=== PATIENT | male | born 1970 | race Caucasian/White ===

== ENCOUNTER 2016-10-31 14:12 | Emergency (ER) | payer OTHER ==
[~2016-10-31] VITALS: Ht 175.3 cm; Wt 118.0 kg
[~2016-10-31 14:12] MED LIST: ASPI81TA2 PO; ATOR10TA84 PO; CARV3.1262 PO; DOCU-275 PO; FLUT16H NASAL; LISI10TA PO; LORA10TA7 PO; LORA1TAB3 PO; NITR0.4T BU; NULEV PO; RANI150T7 PO; SIME80 PO
[2016-10-31] MEDS ORDERED: PROPARACAINE HCL 0.5% 15 ML OPHTHALMIC SOLUTION OS ONE (17:00)
[2016-10-31] MEDS ORDERED: HYDROCODONE/ACETAMINOPHEN 5-325 MG TABLET PO ONE (17:30)
[2016-10-31] MEDS ORDERED: ONDANSETRON HCL 4 MG/2 ML VIAL IM ONE (18:30)
[2016-10-31 19:10] VITALS: BP 140/94
== END 2016-10-31 19:35 | disposition home or self-care (01) ==
LOC: EMS 14:22
DX: H11.32 Conjunctival hemorrhage, left eye (principal); I25.10 Atherosclerotic heart disease of native coronary artery without angina pectoris; I10 Essential (primary) hypertension; E78.00 Pure hypercholesterolemia, unspecified; K21.9 Gastro-esophageal reflux disease without esophagitis; S09.90XA Unspecified injury of head, initial encounter; W20.8XXA Other cause of strike by thrown, projected or falling object, initial encounter; Y93.89 Activity, other specified; Y92.89 Other specified places as the place of occurrence of the external cause; Y99.8 Other external cause status
CPT/HCPCS: 70450; 96372; 99284; J2405

== ENCOUNTER 2019-09-04 11:34 | Emergency (ER) | payer OTHER ==
[~2019-09-04] VITALS: Ht 177.8 cm; Wt 90.9 kg
[~2019-09-04 11:34] MED LIST changes: +ASPI-1198 PO; -ASPI81TA2 PO; -ATOR10TA84 PO; +ATOR20TA86 PO; +CARV12 PO; -CARV3.1262 PO; -DOCU-275 PO; +GEMF600T5 PO; +GLIP5 PO; +HYOS-14 PO; +LISI-662 PO; -LISI10TA PO; +LORA-1000 PO; -LORA1TAB3 PO; +METF-960 PO; -NULEV PO; +PIOG30TA10 PO; -RANI150T7 PO
[2019-09-04 11:51] VITALS: BP 133/97
== END 2019-09-04 12:29 | disposition home or self-care (01) ==
LOC: EMS 11:35
DX: G51.0 Bell's palsy (principal); E11.9 Type 2 diabetes mellitus without complications; E78.00 Pure hypercholesterolemia, unspecified; I10 Essential (primary) hypertension; I25.10 Atherosclerotic heart disease of native coronary artery without angina pectoris; K21.9 Gastro-esophageal reflux disease without esophagitis; Z79.899 Other long term (current) drug therapy; Z79.82 Long term (current) use of aspirin

== ENCOUNTER 2019-09-07 12:46 | Emergency (ER) | payer OTHER ==
[~2019-09-07] VITALS: Ht 172.7 cm; Wt 102.3 kg
[2019-09-07 14:30] LABS: BASOPHILS % (AUTO) 0.3 % (0.0-2.0); EOSINOPHILS % (AUTO) 0.2 % (1.0-6.0); HEMATOCRIT 38.6 % (41-53); LYMPHOCYTES # (AUTO) 1.2 K/uL (1.0-4.8); LYMPHOCYTES % (AUTO) 15.4 % (22.0-44.0); MEAN CORPUSCULAR HEMOGLOBIN 29.4 pg (26.0-34.0); MEAN CORPUSCULAR HGB CONC 33.8 G/dL (31.0-37.0); MEAN CORPUSCULAR VOLUME 87 fL (80-100); MONOCYTES # (AUTO) 0.2 K/uL (0.1-1.0); MONOCYTES % (AUTO) 2.6 % (2.0-9.0); NEUTROPHILS # (AUTO) 6.4 K/uL (1.8-7.7); NEUTROPHILS % (AUTO) 81.5 % (40.0-70.0); PLATELET COUNT (AUTO) 299 K/uL (150-450); RED BLOOD CELL COUNT(AUTO) 4.43 MIL/uL (4.50-5.90); RED CELL DISTRIBUTION WIDTH 13.6 % (11.5-14.5)
[2019-09-07 14:42] LABS: ANION GAP 7 mmol/L (8-16); CALCIUM, TOTAL 8.9 mg/dL (8.8-10.5); CARBON DIOXIDE 26 mmol/L (22-29); CHLORIDE 97 mmol/L (98-107); CREATININE 1.15 mg/dL (0.60-1.30); GLOMERULAR FILTR. RATE CALC > 60 mL/min (>60); GLUCOSE,RANDOM 312 mg/dL (70-110); POTASSIUM 4.6 mmol/L (3.5-5.1); SODIUM SERUM 130 mmol/L (136-145); UREA NITROGEN, BLOOD 27 mg/dL (7-18)
[2019-09-07 14:48] LABS: PROTHROMBIN TIME 10.3 SEC (9.4-11.6)
[2019-09-07 14:56] LABS: ALANINE AMINOTRANSFERASE 30 U/L (12-78); ALBUMIN 4.3 g/dL (3.4-5.0); ALKALINE PHOSPHATASE 84 U/L (46-116); ASPARTATE AMINOTRANSFERASE 9 U/L (15-37); BILIRUBIN,TOTAL 0.3 mg/dL (0.1-1.0); TOTAL PROTEIN, SERUM 8.2 g/dL (6.4-8.2)
[2019-09-07] MEDS ORDERED: SODIUM CHLORIDE 0.9% 1,000 ML IV ONE (15:00)
[2019-09-07] MEDS ORDERED: IOVERSOL 350 MG/ML 100 ML VIAL ONE (15:13)
[2019-09-07] MEDS ORDERED: MINERAL OIL/PETROLATUM,WHITE PF 3.5 GM OPHTHALMIC OINTMENT OS ONE (16:15)
[2019-09-07 16:38] LABS: GLUCOSE,POINT OF CARE 242 MG/DL (70-110)
[2019-09-07 16:57] VITALS: BP 125/76
== END 2019-09-07 17:03 | disposition home or self-care (01) ==
LOC: EMS 12:49
DX: G51.0 Bell's palsy (principal); E11.65 Type 2 diabetes mellitus with hyperglycemia; H02.402 Unspecified ptosis of left eyelid; I25.10 Atherosclerotic heart disease of native coronary artery without angina pectoris; K21.9 Gastro-esophageal reflux disease without esophagitis; E78.00 Pure hypercholesterolemia, unspecified; I10 Essential (primary) hypertension; Z79.82 Long term (current) use of aspirin; Z79.84 Long term (current) use of oral hypoglycemic drugs; Z79.899 Other long term (current) drug therapy
CPT/HCPCS: 36415; 70450; 70491; 80053; 82962; 85025; 85610; 85730; 99284; J7030; Q9967; 82948

== ENCOUNTER 2020-09-27 14:07 | Inpatient (IN) | payer OTHER ==
[~2020-09-27] VITALS: Ht 167.6 cm; Wt 89.3 kg
[~2020-09-27 14:07] MED LIST changes: -GEMF600T5 PO; +GEMF600T90 PO; -LISI-662 PO; +LISI-894 PO; -SIME80 PO; +SIME80TA14 PO
[2020-09-27] MEDS ORDERED: AZITHROMYCIN 500 MG/NS 250 ML IV ONE (14:15)
[2020-09-27] MEDS ORDERED: DEXAMETHASONE SOD PHOS 4 MG/ML 5 ML VIAL IVP ONE (14:15)
[2020-09-27] MEDS ORDERED: ACETAMINOPHEN 500 MG TABLET PO ONE (14:15)
[2020-09-27] MEDS ORDERED: CefTRIAXone 1 GM/DEXTROSE 50 ML IV ONE (14:15)
[2020-09-27] MEDS ORDERED: IBUPROFEN 600 MG TABLET PO ONE (14:30)
[2020-09-27] MEDS ORDERED: MORPHINE SULFATE 2 MG/ML SYRINGE IVP ONE (14:45)
[2020-09-27] MEDS ORDERED: ONDANSETRON HCL 4 MG/2 ML VIAL IVP ONE (14:45)
[2020-09-27 14:59] LABS: ABG A-A DIFF O2 60.5 mmHg (10-20.0); ABG BASE EXCESS 4.4 mmol/L (-2.0-3.0); ABG CARBOXYHEMOGLOBIN 0.5 % (0.0-1.5); ABG HCO3 28.3 mmol/L (22.0-26.0); ABG METHEMOGLOBIN 0.3 % (0.0-1.5); ABG OXYGEN CONTENT 15.9 mL/dL (15.0-23.0); ABG OXYGEN SATURATION 86.4 % (95.0-98.0); ABG OXYHEMOGLOBIN 85.7 % (94.0-100.0); ABG PCO2 35 mmHg (35-45); ABG PH 7.512 (7.35-7.450); ABG TOTAL HEMOGLOBIN 13.2 G/dL (12.0-18.0); PO2, ARTERIAL BG 47.3 mmHg (84.0-92.0); SOURCE, BLOOD GAS ARTERIAL; TEMPERATURE, FAHRENHEIT, BG 98.6 FAHREN (96.0-98.6)
[2020-09-27 15:04] LABS: BASOPHILS % (AUTO) 0.1 % (0.0-2.0); EOSINOPHILS % (AUTO) 0.1 % (1.0-6.0); HEMOGLOBIN 12.8 g/dL (13.5-17.5); LYMPHOCYTES # (AUTO) 0.8 K/uL (1.0-4.8); LYMPHOCYTES % (AUTO) 12.1 % (22.0-44.0); MEAN CORPUSCULAR HEMOGLOBIN 28.9 pg (26.0-34.0); MEAN CORPUSCULAR HGB CONC 32.9 G/dL (31.0-37.0); MEAN CORPUSCULAR VOLUME 88 fL (80-100); MONOCYTES # (AUTO) 0.5 K/uL (0.1-1.0); MONOCYTES % (AUTO) 7.2 % (2.0-9.0); NEUTROPHILS # (AUTO) 5.3 K/uL (1.8-7.7); NEUTROPHILS % (AUTO) 80.5 % (40.0-70.0); PLATELET COUNT (AUTO) 152 K/uL (150-450); RED BLOOD CELL COUNT(AUTO) 4.43 MIL/uL (4.50-5.90); RED CELL DISTRIBUTION WIDTH 14.2 % (11.5-14.5)
[2020-09-27 15:10] LABS: ANION GAP 6 mmol/L (8-16); CALCIUM, TOTAL 8.8 mg/dL (8.8-10.5); CARBON DIOXIDE 30 mmol/L (22-29); CHLORIDE 96 mmol/L (98-107); GLOMERULAR FILTR. RATE CALC > 60 mL/min (>60); GLUCOSE,RANDOM 136 mg/dL (70-110); POTASSIUM 3.8 mmol/L (3.5-5.1); SODIUM SERUM 132 mmol/L (136-145); UREA NITROGEN, BLOOD 21 mg/dL (7-18)
[2020-09-27 15:14] LABS: D-DIMER 2.17 mg/L FEU (0.00-0.50); PROTHROMBIN TIME 10.4 SEC (9.4-11.6)
[2020-09-27 15:18] LABS: SITE, BLOOD GAS RT RADIAL
[2020-09-27 15:21] LABS: LACTIC ACID 1.1 mmol/L (0.4-2.0)
[2020-09-27 15:29] LABS: ALANINE AMINOTRANSFERASE 20 U/L (12-78); ALBUMIN 3.4 g/dL (3.4-5.0); ALKALINE PHOSPHATASE 71 U/L (46-116); ASPARTATE AMINOTRANSFERASE 21 U/L (15-37); BILIRUBIN,TOTAL 0.4 mg/dL (0.1-1.0); CREATINE KINASE, TOTAL ONLY 49 U/L (39-308); FERRITIN 388 ng/mL (26-388); LACTATE DEHYDROGENASE 299 U/L (85-227); LIPASE 124 U/L (73-393); TOTAL PROTEIN, SERUM 8.1 g/dL (6.4-8.2)
[2020-09-27 15:35] LABS: B-TYPE NATRIURETIC PEPTIDE 8 pg/mL (0-100)
[2020-09-27 15:41] LABS: C-REACTIVE PROTEIN QUANT 27.23 mg/dL (0.00-0.30)
[2020-09-27] MEDS ORDERED: ACETAMINOPHEN 325 MG TABLET PO PRN (16:00)
[2020-09-27] MEDS ORDERED: ONDANSETRON HCL 4 MG/2 ML VIAL IVP PRN ×2 (16:00→20:00)
[2020-09-27] MEDS ORDERED: 0.9% SODIUM CHLORIDE 10 ML SYRINGE IVP PRN (16:00)
[2020-09-27 16:34] LABS: COVID AG,FIA SOURCE NASOPHARYNGEAL
[2020-09-27 17:04] LABS: INFLUENZA TYPE A NEGATIVE FOR TYPE A (NEGATIVE); INFLUENZA TYPE B NEGATIVE FOR TYPE B (NEGATIVE)
[2020-09-27] MEDS ORDERED: REMDESIVIR 200 MG in SODIUM CHLORIDE 0.9% 250 ML IV ONE (18:00)
[2020-09-27] MEDS ORDERED: SODIUM CHLORIDE 0.9% 250 ML IV ONE (18:13)
[2020-09-27 18:25] VITALS: BP 114/53
[2020-09-27] MEDS ORDERED: OXYGEN THERAPY IH SCH (20:00)
[2020-09-27] MEDS ORDERED: HYDROCODONE/ACETAMINOPHEN 5-325 MG TABLET PO PRN (20:00)
[2020-09-27] MEDS ORDERED: BISACODYL 10 MG RECTAL RECTAL SUPPOSITORY PR PRN (20:00)
[2020-09-27] MEDS ORDERED: MAGNESIUM HYDROXIDE SUSPENSION 30 ML UDCUP PO PRN (20:00)
[2020-09-27] MEDS ORDERED: DEXTROSE 50%-WATER 25 GM/50 ML SYRINGE IVP PRN (20:00)
[2020-09-27] MEDS ORDERED: MORPHINE SULFATE 2 MG/ML SYRINGE IVP PRN (20:00)
[2020-09-27 20:21] VITALS: BP 105/57
[2020-09-27] MEDS: DOCUSATE SODIUM 100 MG CAPSULE PO SCH (21:52)
[2020-09-28] VITALS (7 sets, daily range): BP systolic 101–125; BP diastolic 50–76
[2020-09-28] MEDS: HEPARIN SODIUM,PORCINE 5,000 UNITS/ML VIAL SQ SCH ×3 (00:45→15:38)
[2020-09-28] MEDS: ACETAMINOPHEN 325 MG TABLET PO PRN ×2 (06:13→18:07)
[2020-09-28 06:33] LABS: BASOPHILS % (AUTO) 0.1 % (0.0-2.0); EOSINOPHILS % (AUTO) 0 % (1.0-6.0); HEMATOCRIT 34.7 % (41-53); LYMPHOCYTES # (AUTO) 0.4 K/uL (1.0-4.8); LYMPHOCYTES % (AUTO) 7.3 % (22.0-44.0); MEAN CORPUSCULAR HEMOGLOBIN 29.9 pg (26.0-34.0); MEAN CORPUSCULAR HGB CONC 34.4 G/dL (31.0-37.0); MEAN CORPUSCULAR VOLUME 87 fL (80-100); MONOCYTES # (AUTO) 0.5 K/uL (0.1-1.0); MONOCYTES % (AUTO) 8.1 % (2.0-9.0); NEUTROPHILS # (AUTO) 5.2 K/uL (1.8-7.7); NEUTROPHILS % (AUTO) 84.5 % (40.0-70.0); PLATELET COUNT (AUTO) 168 K/uL (150-450)
[2020-09-28 07:23] LABS: ALANINE AMINOTRANSFERASE 21 U/L (12-78); ALBUMIN 2.8 g/dL (3.4-5.0); ALKALINE PHOSPHATASE 61 U/L (46-116); ANION GAP 7 mmol/L (8-16); ASPARTATE AMINOTRANSFERASE 24 U/L (15-37); BILIRUBIN,TOTAL 0.2 mg/dL (0.1-1.0); CALCIUM, TOTAL 8.4 mg/dL (8.8-10.5); CARBON DIOXIDE 27 mmol/L (22-29); CHLORIDE 97 mmol/L (98-107); CREATININE 1.21 mg/dL (0.60-1.30); GLOMERULAR FILTR. RATE CALC > 60 mL/min (>60); GLUCOSE,RANDOM 232 mg/dL (70-110); POTASSIUM 4.4 mmol/L (3.5-5.1); SODIUM SERUM 131 mmol/L (136-145); TOTAL PROTEIN, SERUM 7.5 g/dL (6.4-8.2); UREA NITROGEN, BLOOD 24 mg/dL (7-18)
[2020-09-28] MEDS: DEXAMETHASONE SOD PHOS 4 MG/ML VIAL IVP SCH (07:59)
[2020-09-28] MEDS: CHOLECALCIFEROL (VIT D3) 1,000 UNITS [25 MCG] TABLET PO SCH (08:00)
[2020-09-28] MEDS: ZINC SULFATE 220 MG CAPSULE PO SCH ×2 (08:00→20:42)
[2020-09-28] MEDS: ASCORBIC ACID 500 MG TABLET PO SCH ×2 (08:00→20:42)
[2020-09-28] MEDS: DOCUSATE SODIUM 100 MG CAPSULE PO SCH ×2 (08:00→20:42)
[2020-09-28 08:17] LABS: C-REACTIVE PROTEIN QUANT 26.58 mg/dL (0.00-0.30)
[2020-09-28 08:38] LABS: FERRITIN 421 ng/mL (26-388)
[2020-09-28] MEDS ORDERED: FAMOTIDINE 20 MG TABLET PO SCH (09:00)
[2020-09-28] MEDS ORDERED: ASPI-1450 PO (10:59)
[2020-09-28 12:11] LABS: GLUCOMETER DEV NAME(LOC) 5S.2B; GLUCOSE,POINT OF CARE 229 MG/DL (70-110)
[2020-09-28] MEDS ORDERED: HYOSCYAMINE SULFATE 0.125 MG DTAB PO SCH (13:00)
[2020-09-28] MEDS ORDERED: NITROGLYCERIN 0.4 MG SUBLINGUAL TABLET #25 SL PRN (13:00)
[2020-09-28] MEDS ORDERED: DEXTROSE 50%-WATER 25 GM/50 ML SYRINGE IVP PRN (13:00)
[2020-09-28] MEDS: ASPIRIN 81 MG CHEWABLE TABLET PO SCH (15:38)
[2020-09-28] MEDS: HYOSCYAMINE SULFATE 0.125 MG TAB PO SCH ×3 (15:38→20:41)
[2020-09-28] MEDS: CARVEDILOL 12.5 MG TABLET PO SCH ×2 (15:39→20:42)
[2020-09-28] MEDS: LORazepam 1 MG TABLET PO SCH ×2 (15:39→18:25)
[2020-09-28] MEDS: FLUTICASONE PROPIONATE 50 MCG/SPRAY 16 GM NASAL SPRAY NASAL SCH (15:41)
[2020-09-28] MEDS: GlipiZIDE 5 MG TABLET PO SCH (18:07)
[2020-09-28] MEDS: GEMFIBROZIL 600 MG TABLET PO SCH (18:07)
[2020-09-28] MEDS: REMDESIVIR 100 MG in SODIUM CHLORIDE 0.9% 250 ML IV SCH (18:09)
[2020-09-28] MEDS: INSULIN LISPRO 100 UNITS/ML SQ PRN ×2 (18:38→20:44)
[2020-09-28] MEDS: ATORVASTATIN CALCIUM 20 MG TABLET PO SCH (20:42)
[2020-09-28] MEDS: FAMOTIDINE 20 MG TABLET PO SCH (20:47)
[2020-09-28] MEDS: FLUCONAZOLE 200 MG/NACL ISOOSM 100 ML IV SCH (22:30)
[2020-09-28] MEDS: MAALOX/LIDOCAINE/NYSTATIN SUSP 5 ML ORAL.SYG MM SCH (22:30)
[2020-09-28] MEDS ORDERED: SODIUM CHLORIDE 0.9% 1,000 ML ONE (22:46)
[2020-09-28 23:18] LABS: GLUCOMETER DEV NAME(LOC) 5S.2B; GLUCOSE,POINT OF CARE 314 MG/DL (70-110)
[2020-09-29] VITALS (13 sets, daily range): BP systolic 96–119; BP diastolic 45–76
[2020-09-29] MEDS: LORazepam 1 MG TABLET PO SCH ×4 (01:00→19:50)
[2020-09-29 05:06] LABS: GLUCOMETER DEV NAME(LOC) 5N.3; GLUCOSE,POINT OF CARE 243 MG/DL (70-110)
[2020-09-29 05:06] LABS: GLUCOMETER DEV NAME(LOC) 5N.3; GLUCOSE,POINT OF CARE 288 MG/DL (70-110)
[2020-09-29] MEDS: GlipiZIDE 5 MG TABLET PO SCH ×2 (05:41→16:45)
[2020-09-29] MEDS: GEMFIBROZIL 600 MG TABLET PO SCH ×2 (05:41→16:45)
[2020-09-29] MEDS: ACETAMINOPHEN 325 MG TABLET PO PRN (05:42)
[2020-09-29] MEDS: INSULIN LISPRO 100 UNITS/ML SQ PRN ×4 (05:50→22:20)
[2020-09-29 06:45] LABS: BASOPHILS % (AUTO) 0.1 % (0.0-2.0); EOSINOPHILS % (AUTO) 0 % (1.0-6.0); HEMATOCRIT 32.5 % (41-53); HEMOGLOBIN 11.3 g/dL (13.5-17.5); LYMPHOCYTES # (AUTO) 0.8 K/uL (1.0-4.8); MEAN CORPUSCULAR HEMOGLOBIN 29.8 pg (26.0-34.0); MEAN CORPUSCULAR HGB CONC 34.6 G/dL (31.0-37.0); MEAN CORPUSCULAR VOLUME 86 fL (80-100); MONOCYTES # (AUTO) 0.8 K/uL (0.1-1.0); MONOCYTES % (AUTO) 9.4 % (2.0-9.0); NEUTROPHILS # (AUTO) 6.6 K/uL (1.8-7.7); NEUTROPHILS % (AUTO) 80.5 % (40.0-70.0); PLATELET COUNT (AUTO) 198 K/uL (150-450); RED BLOOD CELL COUNT(AUTO) 3.78 MIL/uL (4.50-5.90); RED CELL DISTRIBUTION WIDTH 13.9 % (11.5-14.5)
[2020-09-29 07:16] LABS: ALANINE AMINOTRANSFERASE 17 U/L (12-78); ALBUMIN 2.8 g/dL (3.4-5.0); ALKALINE PHOSPHATASE 55 U/L (46-116); ANION GAP 10 mmol/L (8-16); ASPARTATE AMINOTRANSFERASE 29 U/L (15-37); BILIRUBIN,TOTAL 0.2 mg/dL (0.1-1.0); C-REACTIVE PROTEIN QUANT 12.82 mg/dL (0.00-0.30); CALCIUM, TOTAL 8.3 mg/dL (8.8-10.5); CARBON DIOXIDE 27 mmol/L (22-29); CHLORIDE 97 mmol/L (98-107); CREATININE 1.04 mg/dL (0.60-1.30); FERRITIN 617 ng/mL (26-388); GLOMERULAR FILTR. RATE CALC > 60 mL/min (>60); GLUCOSE,RANDOM 189 mg/dL (70-110); POTASSIUM 4.2 mmol/L (3.5-5.1); SODIUM SERUM 134 mmol/L (136-145); TOTAL PROTEIN, SERUM 7.1 g/dL (6.4-8.2); UREA NITROGEN, BLOOD 27 mg/dL (7-18)
[2020-09-29] MEDS: HYOSCYAMINE SULFATE 0.125 MG TAB PO SCH ×4 (07:54→22:13)
[2020-09-29] MEDS: CARVEDILOL 12.5 MG TABLET PO SCH ×2 (07:54→22:13)
[2020-09-29] MEDS: FAMOTIDINE 20 MG TABLET PO SCH ×2 (07:54→22:13)
[2020-09-29] MEDS: CHOLECALCIFEROL (VIT D3) 1,000 UNITS [25 MCG] TABLET PO SCH (07:54)
[2020-09-29] MEDS: ZINC SULFATE 220 MG CAPSULE PO SCH ×2 (07:54→22:13)
[2020-09-29] MEDS: LORATADINE 10 MG TABLET PO SCH (07:54)
[2020-09-29] MEDS: ASPIRIN 81 MG CHEWABLE TABLET PO SCH (07:54)
[2020-09-29] MEDS: LISINOPRIL 20 MG TABLET PO SCH (07:55)
[2020-09-29] MEDS: ASCORBIC ACID 500 MG TABLET PO SCH ×2 (07:55→22:14)
[2020-09-29] MEDS: DOCUSATE SODIUM 100 MG CAPSULE PO SCH ×2 (07:55→22:14)
[2020-09-29] MEDS: HEPARIN SODIUM,PORCINE 5,000 UNITS/ML VIAL SQ SCH ×4 (07:55→23:47)
[2020-09-29] MEDS: MAALOX/LIDOCAINE/NYSTATIN SUSP 5 ML ORAL.SYG MM SCH ×4 (07:55→22:13)
[2020-09-29] MEDS: DEXAMETHASONE SOD PHOS 4 MG/ML VIAL IVP SCH (07:55)
[2020-09-29] MEDS: FLUTICASONE PROPIONATE 50 MCG/SPRAY 16 GM NASAL SPRAY NASAL SCH (07:56)
[2020-09-29] MEDS: PIOGLITAZONE HCL 30 MG TABLET PO SCH (08:08)
[2020-09-29] MEDS: PIPERACILLIN/TAZO 3.375 GM/D5W 50 ML IV SCH ×2 (13:48→19:50)
[2020-09-29] MEDS: ACYCLOVIR 200 MG CAPSULE PO SCH ×2 (16:45→22:13)
[2020-09-29] MEDS: REMDESIVIR 100 MG in SODIUM CHLORIDE 0.9% 250 ML IV SCH (17:15)
[2020-09-29 17:52] LABS: GLUCOMETER DEV NAME(LOC) 5S.2B; GLUCOSE,POINT OF CARE 158 MG/DL (70-110)
[2020-09-29 17:52] LABS: GLUCOMETER DEV NAME(LOC) 5S.2B; GLUCOSE,POINT OF CARE 145 MG/DL (70-110)
[2020-09-29 17:52] LABS: GLUCOMETER DEV NAME(LOC) 5S.2B; GLUCOSE,POINT OF CARE 293 MG/DL (70-110)
[2020-09-29] MEDS: FLUCONAZOLE 200 MG/NACL ISOOSM 100 ML IV SCH (22:13)
[2020-09-29] MEDS: ATORVASTATIN CALCIUM 20 MG TABLET PO SCH (22:13)
[2020-09-30] VITALS (10 sets, daily range): BP systolic 91–122; BP diastolic 50–72
[2020-09-30 00:26] LABS: GLUCOMETER DEV NAME(LOC) 5N.3; GLUCOSE,POINT OF CARE 227 MG/DL (70-110)
[2020-09-30] MEDS: LORazepam 1 MG TABLET PO SCH ×4 (00:38→18:31)
[2020-09-30] MEDS: PIPERACILLIN/TAZO 3.375 GM/D5W 50 ML IV SCH ×4 (00:38→18:32)
[2020-09-30] MEDS: GlipiZIDE 5 MG TABLET PO SCH ×2 (06:22→17:05)
[2020-09-30] MEDS: GEMFIBROZIL 600 MG TABLET PO SCH ×2 (06:23→17:05)
[2020-09-30 06:26] LABS: EOSINOPHILS % (AUTO) 0 % (1.0-6.0); HEMATOCRIT 35.4 % (41-53); LYMPHOCYTES # (AUTO) 0.8 K/uL (1.0-4.8); LYMPHOCYTES % (AUTO) 9.7 % (22.0-44.0); MEAN CORPUSCULAR HEMOGLOBIN 29.5 pg (26.0-34.0); MEAN CORPUSCULAR HGB CONC 33.9 G/dL (31.0-37.0); MEAN CORPUSCULAR VOLUME 87 fL (80-100); MONOCYTES % (AUTO) 11.3 % (2.0-9.0); NEUTROPHILS # (AUTO) 6.9 K/uL (1.8-7.7); PLATELET COUNT (AUTO) 230 K/uL (150-450); RED BLOOD CELL COUNT(AUTO) 4.07 MIL/uL (4.50-5.90)
[2020-09-30] MEDS: INSULIN LISPRO 100 UNITS/ML SQ PRN ×4 (06:36→21:53)
[2020-09-30 06:55] LABS: GLUCOMETER DEV NAME(LOC) 5S.2B; GLUCOSE,POINT OF CARE 150 MG/DL (70-110)
[2020-09-30 07:16] LABS: ALANINE AMINOTRANSFERASE 15 U/L (12-78); ALBUMIN 2.8 g/dL (3.4-5.0); ALKALINE PHOSPHATASE 58 U/L (46-116); ANION GAP 10 mmol/L (8-16); ASPARTATE AMINOTRANSFERASE 39 U/L (15-37); BILIRUBIN,TOTAL 0.5 mg/dL (0.1-1.0); CARBON DIOXIDE 26 mmol/L (22-29); CHLORIDE 98 mmol/L (98-107); CREATININE 1.11 mg/dL (0.60-1.30); GLOMERULAR FILTR. RATE CALC > 60 mL/min (>60); GLUCOSE,RANDOM 137 mg/dL (70-110); POTASSIUM 4.3 mmol/L (3.5-5.1); SODIUM SERUM 134 mmol/L (136-145); TOTAL PROTEIN, SERUM 7.3 g/dL (6.4-8.2); UREA NITROGEN, BLOOD 29 mg/dL (7-18)
[2020-09-30 07:51] LABS: C-REACTIVE PROTEIN QUANT 11.42 mg/dL (0.00-0.30); FERRITIN 713 ng/mL (26-388)
[2020-09-30] MEDS: HEPARIN SODIUM,PORCINE 5,000 UNITS/ML VIAL SQ SCH ×3 (08:43→23:09)
[2020-09-30] MEDS: DEXAMETHASONE SOD PHOS 4 MG/ML VIAL IVP SCH (08:43)
[2020-09-30] MEDS: MAALOX/LIDOCAINE/NYSTATIN SUSP 5 ML ORAL.SYG MM SCH ×4 (08:44→21:19)
[2020-09-30] MEDS: ASPIRIN 81 MG CHEWABLE TABLET PO SCH (08:44)
[2020-09-30] MEDS: CARVEDILOL 12.5 MG TABLET PO SCH ×3 (08:44→21:19)
[2020-09-30] MEDS: DOCUSATE SODIUM 100 MG CAPSULE PO SCH ×2 (08:44→21:20)
[2020-09-30] MEDS: FLUTICASONE PROPIONATE 50 MCG/SPRAY 16 GM NASAL SPRAY NASAL SCH (08:44)
[2020-09-30] MEDS: LORATADINE 10 MG TABLET PO SCH (08:44)
[2020-09-30] MEDS: PIOGLITAZONE HCL 30 MG TABLET PO SCH (08:44)
[2020-09-30] MEDS: HYOSCYAMINE SULFATE 0.125 MG TAB PO SCH ×4 (08:44→21:19)
[2020-09-30] MEDS: ASCORBIC ACID 500 MG TABLET PO SCH ×2 (08:45→21:19)
[2020-09-30] MEDS: ZINC SULFATE 220 MG CAPSULE PO SCH ×2 (08:45→21:19)
[2020-09-30] MEDS: LISINOPRIL 20 MG TABLET PO SCH (08:45)
[2020-09-30] MEDS: ACYCLOVIR 200 MG CAPSULE PO SCH ×3 (08:45→21:20)
[2020-09-30] MEDS: FAMOTIDINE 20 MG TABLET PO SCH ×2 (08:45→21:19)
[2020-09-30] MEDS: CHOLECALCIFEROL (VIT D3) 1,000 UNITS [25 MCG] TABLET PO SCH (08:45)
[2020-09-30] MEDS: ACETAMINOPHEN 325 MG TABLET PO PRN (12:12)
[2020-09-30] MEDS ORDERED: SODIUM CHLORIDE 0.9% 250 ML IV ONE (14:43)
[2020-09-30] MEDS: REMDESIVIR 100 MG in SODIUM CHLORIDE 0.9% 250 ML IV SCH (17:07)
[2020-09-30 18:49] LABS: GLUCOMETER DEV NAME(LOC) 5N.3; GLUCOSE,POINT OF CARE 283 MG/DL (70-110)
[2020-09-30 18:49] LABS: GLUCOMETER DEV NAME(LOC) 5N.3; GLUCOSE,POINT OF CARE 191 MG/DL (70-110)
[2020-09-30] MEDS: FLUCONAZOLE 200 MG/NACL ISOOSM 100 ML IV SCH (21:19)
[2020-09-30] MEDS: ATORVASTATIN CALCIUM 20 MG TABLET PO SCH (21:19)
[2020-09-30 22:33] LABS: GLUCOMETER DEV NAME(LOC) 5N.3; GLUCOSE,POINT OF CARE 251 MG/DL (70-110)
[2020-09-30] MEDS: ZOLPIDEM TARTRATE 5 MG TABLET PO PRN (23:23)
[2020-10-01 00:36] VITALS: BP 114/67
[2020-10-01] MEDS: LORazepam 1 MG TABLET PO SCH ×4 (00:42→21:00)
[2020-10-01] MEDS ORDERED: SODIUM CHLORIDE 0.9% 250 ML IV ONE (00:51)
[2020-10-01] MEDS: PIPERACILLIN/TAZO 3.375 GM/D5W 50 ML IV SCH ×4 (00:53→19:50)
[2020-10-01 04:42] VITALS: BP 110/60
[2020-10-01] MEDS: GEMFIBROZIL 600 MG TABLET PO SCH ×2 (06:08→17:07)
[2020-10-01] MEDS: GlipiZIDE 5 MG TABLET PO SCH ×2 (06:09→17:07)
[2020-10-01 06:26] LABS: EOSINOPHILS % (AUTO) 0 % (1.0-6.0); HEMATOCRIT 36.2 % (41-53); LYMPHOCYTES # (AUTO) 1.1 K/uL (1.0-4.8); LYMPHOCYTES % (AUTO) 9.7 % (22.0-44.0); MEAN CORPUSCULAR HGB CONC 33.2 G/dL (31.0-37.0); MEAN CORPUSCULAR VOLUME 87 fL (80-100); MONOCYTES % (AUTO) 8.7 % (2.0-9.0); NEUTROPHILS # (AUTO) 9.3 K/uL (1.8-7.7); NEUTROPHILS % (AUTO) 81.6 % (40.0-70.0); PLATELET COUNT (AUTO) 256 K/uL (150-450); RED BLOOD CELL COUNT(AUTO) 4.15 MIL/uL (4.50-5.90)
[2020-10-01 07:28] VITALS: BP 104/70
[2020-10-01 07:43] LABS: ALANINE AMINOTRANSFERASE 18 U/L (12-78); ALBUMIN 2.7 g/dL (3.4-5.0); ALKALINE PHOSPHATASE 67 U/L (46-116); ANION GAP 10 mmol/L (8-16); BILIRUBIN,TOTAL 0.4 mg/dL (0.1-1.0); C-REACTIVE PROTEIN QUANT 8.05 mg/dL (0.00-0.30); CALCIUM, TOTAL 8.4 mg/dL (8.8-10.5); CARBON DIOXIDE 27 mmol/L (22-29); CHLORIDE 98 mmol/L (98-107); GLOMERULAR FILTR. RATE CALC > 60 mL/min (>60); GLUCOSE,RANDOM 83 mg/dL (70-110); POTASSIUM 4.2 mmol/L (3.5-5.1); SODIUM SERUM 135 mmol/L (136-145); TOTAL PROTEIN, SERUM 7.2 g/dL (6.4-8.2); UREA NITROGEN, BLOOD 27 mg/dL (7-18)
[2020-10-01 08:26] LABS: ASPARTATE AMINOTRANSFERASE 32 U/L (15-37); FERRITIN 461 ng/mL (26-388)
[2020-10-01] MEDS: HEPARIN SODIUM,PORCINE 5,000 UNITS/ML VIAL SQ SCH (08:40)
[2020-10-01] MEDS: DEXAMETHASONE SOD PHOS 4 MG/ML VIAL IVP SCH (08:40)
[2020-10-01] MEDS: ACYCLOVIR 200 MG CAPSULE PO SCH ×3 (08:41→21:06)
[2020-10-01] MEDS: MAALOX/LIDOCAINE/NYSTATIN SUSP 5 ML ORAL.SYG MM SCH ×4 (08:41→21:07)
[2020-10-01] MEDS: HYOSCYAMINE SULFATE 0.125 MG TAB PO SCH ×4 (08:41→21:06)
[2020-10-01] MEDS: ZINC SULFATE 220 MG CAPSULE PO SCH ×2 (08:41→21:06)
[2020-10-01] MEDS: ACETAMINOPHEN 325 MG TABLET PO PRN (08:41)
[2020-10-01] MEDS: PIOGLITAZONE HCL 30 MG TABLET PO SCH (08:41)
[2020-10-01] MEDS: CHOLECALCIFEROL (VIT D3) 1,000 UNITS [25 MCG] TABLET PO SCH (08:42)
[2020-10-01] MEDS: DOCUSATE SODIUM 100 MG CAPSULE PO SCH ×2 (08:42→21:07)
[2020-10-01] MEDS: FAMOTIDINE 20 MG TABLET PO SCH ×2 (08:42→21:06)
[2020-10-01] MEDS: ASCORBIC ACID 500 MG TABLET PO SCH ×2 (08:42→21:07)
[2020-10-01] MEDS: LORATADINE 10 MG TABLET PO SCH (08:42)
[2020-10-01] MEDS: ASPIRIN 81 MG CHEWABLE TABLET PO SCH (08:42)
[2020-10-01] MEDS: CARVEDILOL 12.5 MG TABLET PO SCH ×2 (08:42→21:07)
[2020-10-01] MEDS: FLUTICASONE PROPIONATE 50 MCG/SPRAY 16 GM NASAL SPRAY NASAL SCH (08:43)
[2020-10-01] MEDS: LISINOPRIL 20 MG TABLET PO SCH (08:43)
[2020-10-01] MEDS: INSULIN LISPRO 100 UNITS/ML SQ PRN ×3 (11:35→21:26)
[2020-10-01 12:02] VITALS: BP 96/67
[2020-10-01 15:21] VITALS: BP 98/54
[2020-10-01 18:02] LABS: GLUCOMETER DEV NAME(LOC) 5N.3; GLUCOSE,POINT OF CARE 222 MG/DL (70-110)
[2020-10-01] MEDS: REMDESIVIR 100 MG in SODIUM CHLORIDE 0.9% 250 ML IV SCH (18:02)
[2020-10-01 20:41] VITALS: BP 106/63
[2020-10-01] MEDS: ATORVASTATIN CALCIUM 20 MG TABLET PO SCH (21:06)
[2020-10-01] MEDS: ENOXAPARIN SODIUM 40 MG/0.4 ML PF SYRINGE SQ SCH (21:06)
[2020-10-01] MEDS: FLUCONAZOLE 200 MG/NACL ISOOSM 100 ML IV SCH (21:06)
[2020-10-02 00:05] LABS: GLUCOMETER DEV NAME(LOC) 5S.2B; GLUCOSE,POINT OF CARE 212 MG/DL (70-110)
[2020-10-02 00:05] LABS: GLUCOMETER DEV NAME(LOC) 5S.2B; GLUCOSE,POINT OF CARE 83 MG/DL (70-110)
[2020-10-02 00:06] LABS: GLUCOMETER DEV NAME(LOC) 5S.2B; GLUCOSE,POINT OF CARE 159 MG/DL (70-110)
[2020-10-02] MEDS: LORazepam 1 MG TABLET PO SCH ×5 (00:33→23:47)
[2020-10-02] MEDS: PIPERACILLIN/TAZO 3.375 GM/D5W 50 ML IV SCH ×5 (00:33→23:47)
[2020-10-02 00:55] VITALS: BP 108/63
[2020-10-02 04:54] VITALS: BP 114/61
[2020-10-02] MEDS: GlipiZIDE 5 MG TABLET PO SCH ×2 (06:26→16:48)
[2020-10-02 07:31] LABS: EOSINOPHILS % (AUTO) 0.4 % (1.0-6.0); HEMOGLOBIN 12.6 g/dL (13.5-17.5); LYMPHOCYTES # (AUTO) 1.2 K/uL (1.0-4.8); LYMPHOCYTES % (AUTO) 7.8 % (22.0-44.0); MEAN CORPUSCULAR HEMOGLOBIN 29.5 pg (26.0-34.0); MEAN CORPUSCULAR HGB CONC 33.9 G/dL (31.0-37.0); MEAN CORPUSCULAR VOLUME 87 fL (80-100); MONOCYTES # (AUTO) 0.8 K/uL (0.1-1.0); MONOCYTES % (AUTO) 5.2 % (2.0-9.0); NEUTROPHILS # (AUTO) 13.7 K/uL (1.8-7.7); PLATELET COUNT (AUTO) 264 K/uL (150-450); RED BLOOD CELL COUNT(AUTO) 4.26 MIL/uL (4.50-5.90)
[2020-10-02 07:49] LABS: ALANINE AMINOTRANSFERASE 15 U/L (12-78); ALBUMIN 2.7 g/dL (3.4-5.0); ALKALINE PHOSPHATASE 78 U/L (46-116); ANION GAP 10 mmol/L (8-16); ASPARTATE AMINOTRANSFERASE 36 U/L (15-37); BILIRUBIN,TOTAL 0.9 mg/dL (0.1-1.0); C-REACTIVE PROTEIN QUANT 13.27 mg/dL (0.00-0.30); CALCIUM, TOTAL 8.8 mg/dL (8.8-10.5); CARBON DIOXIDE 25 mmol/L (22-29); CHLORIDE 95 mmol/L (98-107); CREATININE 1.05 mg/dL (0.60-1.30); GLOMERULAR FILTR. RATE CALC > 60 mL/min (>60); GLUCOSE,RANDOM 89 mg/dL (70-110); POTASSIUM 4.4 mmol/L (3.5-5.1); SODIUM SERUM 130 mmol/L (136-145); TOTAL PROTEIN, SERUM 7.8 g/dL (6.4-8.2); UREA NITROGEN, BLOOD 30 mg/dL (7-18)
[2020-10-02 07:55] LABS: NEUTROPHILS % (AUTO) 86.6 % (40.0-70.0)
[2020-10-02] MEDS: FAMOTIDINE 20 MG TABLET PO SCH ×2 (07:56→20:42)
[2020-10-02] MEDS: DOCUSATE SODIUM 100 MG CAPSULE PO SCH ×2 (07:56→21:00)
[2020-10-02] MEDS: LISINOPRIL 20 MG TABLET PO SCH (07:56)
[2020-10-02] MEDS: ASCORBIC ACID 500 MG TABLET PO SCH ×2 (07:56→20:42)
[2020-10-02] MEDS: MAALOX/LIDOCAINE/NYSTATIN SUSP 5 ML ORAL.SYG MM SCH ×4 (07:56→21:12)
[2020-10-02] MEDS: LORATADINE 10 MG TABLET PO SCH (07:56)
[2020-10-02] MEDS: ZINC SULFATE 220 MG CAPSULE PO SCH ×2 (07:56→20:42)
[2020-10-02] MEDS: PIOGLITAZONE HCL 30 MG TABLET PO SCH (07:57)
[2020-10-02] MEDS: GEMFIBROZIL 600 MG TABLET PO SCH ×2 (07:57→16:48)
[2020-10-02] MEDS: ASPIRIN 81 MG CHEWABLE TABLET PO SCH (07:57)
[2020-10-02] MEDS: ACYCLOVIR 200 MG CAPSULE PO SCH ×3 (07:57→20:42)
[2020-10-02] MEDS: CHOLECALCIFEROL (VIT D3) 1,000 UNITS [25 MCG] TABLET PO SCH (07:57)
[2020-10-02] MEDS: CARVEDILOL 12.5 MG TABLET PO SCH ×2 (07:57→20:42)
[2020-10-02] MEDS: ENOXAPARIN SODIUM 40 MG/0.4 ML PF SYRINGE SQ SCH ×2 (07:57→20:45)
[2020-10-02] MEDS: DEXAMETHASONE SOD PHOS 4 MG/ML VIAL IVP SCH (07:57)
[2020-10-02] MEDS: HYOSCYAMINE SULFATE 0.125 MG TAB PO SCH ×4 (07:58→20:42)
[2020-10-02] MEDS: FLUTICASONE PROPIONATE 50 MCG/SPRAY 16 GM NASAL SPRAY NASAL SCH (07:58)
[2020-10-02] MEDS: ACETAMINOPHEN 325 MG TABLET PO PRN (08:11)
[2020-10-02 09:12] VITALS: BP 107/53
[2020-10-02] MEDS: INSULIN LISPRO 100 UNITS/ML SQ PRN ×3 (11:29→21:10)
[2020-10-02 12:34] VITALS: BP 101/56
[2020-10-02 20:01] LABS: GLUCOMETER DEV NAME(LOC) 5N.3; GLUCOSE,POINT OF CARE 228 MG/DL (70-110)
[2020-10-02 20:01] LABS: GLUCOMETER DEV NAME(LOC) 5N.3; GLUCOSE,POINT OF CARE 91 MG/DL (70-110)
[2020-10-02 20:05] VITALS: BP 133/59
[2020-10-02] MEDS: FLUCONAZOLE 200 MG/NACL ISOOSM 100 ML IV SCH (20:42)
[2020-10-02] MEDS: ATORVASTATIN CALCIUM 20 MG TABLET PO SCH (20:42)
[2020-10-03 00:13] VITALS: BP 116/59
[2020-10-03] MEDS: GlipiZIDE 5 MG TABLET PO SCH ×2 (05:33→17:03)
[2020-10-03] MEDS: GEMFIBROZIL 600 MG TABLET PO SCH ×2 (05:33→17:03)
[2020-10-03 05:34] VITALS: BP 99/56
[2020-10-03] MEDS: LORazepam 1 MG TABLET PO SCH ×3 (05:34→18:04)
[2020-10-03] MEDS: PIPERACILLIN/TAZO 3.375 GM/D5W 50 ML IV SCH ×3 (05:34→18:58)
[2020-10-03 06:40] LABS: BASOPHILS % (AUTO) 0.2 % (0.0-2.0); EOSINOPHILS % (AUTO) 1.1 % (1.0-6.0); HEMATOCRIT 36.9 % (41-53); HEMOGLOBIN 12.4 g/dL (13.5-17.5); LYMPHOCYTES # (AUTO) 1.1 K/uL (1.0-4.8); LYMPHOCYTES % (AUTO) 5.8 % (22.0-44.0); MEAN CORPUSCULAR HGB CONC 33.7 G/dL (31.0-37.0); MEAN CORPUSCULAR VOLUME 86 fL (80-100); MONOCYTES # (AUTO) 0.7 K/uL (0.1-1.0); MONOCYTES % (AUTO) 3.7 % (2.0-9.0); NEUTROPHILS # (AUTO) 16.6 K/uL (1.8-7.7); PLATELET COUNT (AUTO) 337 K/uL (150-450); RED BLOOD CELL COUNT(AUTO) 4.28 MIL/uL (4.50-5.90); RED CELL DISTRIBUTION WIDTH 13.7 % (11.5-14.5)
[2020-10-03 07:24] LABS: ALANINE AMINOTRANSFERASE 20 U/L (12-78); ALBUMIN 2.7 g/dL (3.4-5.0); ALKALINE PHOSPHATASE 82 U/L (46-116); ANION GAP 10 mmol/L (8-16); ASPARTATE AMINOTRANSFERASE 41 U/L (15-37); BILIRUBIN,TOTAL 0.8 mg/dL (0.1-1.0); CALCIUM, TOTAL 8.7 mg/dL (8.8-10.5); CARBON DIOXIDE 26 mmol/L (22-29); CHLORIDE 96 mmol/L (98-107); CREATININE 1.13 mg/dL (0.60-1.30); GLOMERULAR FILTR. RATE CALC > 60 mL/min (>60); GLUCOSE,RANDOM 86 mg/dL (70-110); POTASSIUM 4.4 mmol/L (3.5-5.1); SODIUM SERUM 132 mmol/L (136-145); TOTAL PROTEIN, SERUM 7.6 g/dL (6.4-8.2); UREA NITROGEN, BLOOD 37 mg/dL (7-18)
[2020-10-03 07:38] LABS: NEUTROPHILS % (AUTO) 89.2 % (40.0-70.0)
[2020-10-03 07:52] VITALS: BP 97/59
[2020-10-03] MEDS: ASPIRIN 81 MG CHEWABLE TABLET PO SCH (08:11)
[2020-10-03] MEDS: MAALOX/LIDOCAINE/NYSTATIN SUSP 5 ML ORAL.SYG MM SCH ×4 (08:11→21:00)
[2020-10-03] MEDS: DEXAMETHASONE SOD PHOS 4 MG/ML VIAL IVP SCH (08:11)
[2020-10-03] MEDS: DOCUSATE SODIUM 100 MG CAPSULE PO SCH ×2 (08:12→21:10)
[2020-10-03] MEDS: CHOLECALCIFEROL (VIT D3) 1,000 UNITS [25 MCG] TABLET PO SCH (08:12)
[2020-10-03] MEDS: ASCORBIC ACID 500 MG TABLET PO SCH ×2 (08:12→21:10)
[2020-10-03] MEDS: HYOSCYAMINE SULFATE 0.125 MG TAB PO SCH ×4 (08:13→21:10)
[2020-10-03] MEDS: PIOGLITAZONE HCL 30 MG TABLET PO SCH (08:13)
[2020-10-03] MEDS: FAMOTIDINE 20 MG TABLET PO SCH ×2 (08:13→21:10)
[2020-10-03] MEDS: LORATADINE 10 MG TABLET PO SCH (08:13)
[2020-10-03] MEDS: ZINC SULFATE 220 MG CAPSULE PO SCH ×2 (08:13→21:10)
[2020-10-03] MEDS: ENOXAPARIN SODIUM 40 MG/0.4 ML PF SYRINGE SQ SCH ×2 (08:13→21:10)
[2020-10-03] MEDS: ACYCLOVIR 200 MG CAPSULE PO SCH ×3 (08:13→21:10)
[2020-10-03] MEDS: FLUTICASONE PROPIONATE 50 MCG/SPRAY 16 GM NASAL SPRAY NASAL SCH (08:14)
[2020-10-03] MEDS: CARVEDILOL 12.5 MG TABLET PO SCH ×2 (08:15→21:10)
[2020-10-03] MEDS: LISINOPRIL 20 MG TABLET PO SCH (08:15)
[2020-10-03 11:38] VITALS: BP 96/53
[2020-10-03] MEDS: INSULIN LISPRO 100 UNITS/ML SQ PRN ×2 (11:49→17:56)
[2020-10-03 13:07] LABS: LEGIONELLA PNEUMO AG URINE Negative (Negative)
[2020-10-03 13:24] LABS: C-REACTIVE PROTEIN QUANT 18.05 mg/dL (0.00-0.30)
[2020-10-03 15:06] LABS: ORGANISM ID Not indicated.; S PNEUMO SOURCE Urine; STREP PNEUMONIAE AG URINE Negative (Negative); STREP.PNEUMO BODY FLUID CULT. Not indicated.
[2020-10-03 16:06] VITALS: BP 95/60
[2020-10-03 20:39] VITALS: BP 110/74
[2020-10-03] MEDS: FLUCONAZOLE 200 MG/NACL ISOOSM 100 ML IV SCH (21:09)
[2020-10-03] MEDS: ATORVASTATIN CALCIUM 20 MG TABLET PO SCH (21:13)
[2020-10-03] MEDS: ACETAMINOPHEN 325 MG TABLET PO PRN (21:14)
[2020-10-03] MEDS: ZOLPIDEM TARTRATE 5 MG TABLET PO PRN (21:28)
[2020-10-03 23:09] LABS: ABG A-A DIFF O2 632.2 mmHg (10-20.0); ABG BASE EXCESS -3.7 mmol/L (-2.0-3.0); ABG CARBOXYHEMOGLOBIN 0.9 % (0.0-1.5); ABG HCO3 21.5 mmol/L (22.0-26.0); ABG METHEMOGLOBIN 0.3 % (0.0-1.5); ABG OXYGEN CONTENT 14.8 mL/dL (15.0-23.0); ABG OXYHEMOGLOBIN 76.5 % (94.0-100.0); ABG PCO2 36 mmHg (35-45); ABG PH 7.389 (7.35-7.450); ABG TOTAL HEMOGLOBIN 13.8 G/dL (12.0-18.0); PO2, ARTERIAL BG 44.7 mmHg (84.0-92.0); SOURCE, BLOOD GAS ARTERIAL; TEMPERATURE, FAHRENHEIT, BG 98.6 FAHREN (96.0-98.6)
[2020-10-03 23:11] LABS: ABG OXYGEN SATURATION 77.4 % (95.0-98.0); SITE, BLOOD GAS LFT RADIAL
[2020-10-03 23:12] LABS: O2 DEVICE,BLOOD GAS HFNC (ROOM AIR)
[2020-10-04] VITALS (8 sets, daily range): BP systolic 94–133; BP diastolic 54–76
[2020-10-04] MEDS: PIPERACILLIN/TAZO 3.375 GM/D5W 50 ML IV SCH ×3 (00:51→11:35)
[2020-10-04 01:48] LABS: GLUCOMETER DEV NAME(LOC) 5N.1B; GLUCOSE,POINT OF CARE 98 MG/DL (70-110)
[2020-10-04 01:48] LABS: GLUCOMETER DEV NAME(LOC) 5N.1B; GLUCOSE,POINT OF CARE 217 MG/DL (70-110)
[2020-10-04 02:38] LABS: ABG A-A DIFF O2 596.7 mmHg (10-20.0); ABG BASE EXCESS -4.2 mmol/L (-2.0-3.0); ABG CARBOXYHEMOGLOBIN 0.6 % (0.0-1.5); ABG HCO3 21.7 mmol/L (22.0-26.0); ABG METHEMOGLOBIN 0.3 % (0.0-1.5); ABG OXYGEN CONTENT 17.7 mL/dL (15.0-23.0); ABG OXYGEN SATURATION 95.8 % (95.0-98.0); ABG OXYHEMOGLOBIN 94.9 % (94.0-100.0); ABG PCO2 33 mmHg (35-45); ABG PH 7.413 (7.35-7.450); ABG TOTAL HEMOGLOBIN 13.2 G/dL (12.0-18.0); PO2, ARTERIAL BG 83.7 mmHg (84.0-92.0); SOURCE, BLOOD GAS ARTERIAL; TEMPERATURE, FAHRENHEIT, BG 98.6 FAHREN (96.0-98.6)
[2020-10-04 02:39] LABS: O2 DEVICE,BLOOD GAS BIPAP (ROOM AIR); SITE, BLOOD GAS LFT RADIAL
[2020-10-04] MEDS: LORazepam 1 MG TABLET PO SCH ×5 (06:00→23:43)
[2020-10-04] MEDS: GEMFIBROZIL 600 MG TABLET PO SCH ×2 (06:30→16:30)
[2020-10-04] MEDS: GlipiZIDE 5 MG TABLET PO SCH ×2 (06:30→16:30)
[2020-10-04 06:41] LABS: GLUCOMETER DEV NAME(LOC) 5N.3; GLUCOSE,POINT OF CARE 141 MG/DL (70-110)
[2020-10-04 06:42] LABS: GLUCOMETER DEV NAME(LOC) 5N.3; GLUCOSE,POINT OF CARE 134 MG/DL (70-110)
[2020-10-04 06:42] LABS: GLUCOMETER DEV NAME(LOC) 5N.3; GLUCOSE,POINT OF CARE 131 MG/DL (70-110)
[2020-10-04 06:42] LABS: GLUCOMETER DEV NAME(LOC) 5N.3; GLUCOSE,POINT OF CARE 77 MG/DL (70-110)
[2020-10-04 06:43] LABS: BASOPHILS % (AUTO) 0.2 % (0.0-2.0); EOSINOPHILS % (AUTO) 0.6 % (1.0-6.0); HEMATOCRIT 38.4 % (41-53); HEMOGLOBIN 12.9 g/dL (13.5-17.5); LYMPHOCYTES % (AUTO) 4.9 % (22.0-44.0); MEAN CORPUSCULAR HGB CONC 33.5 G/dL (31.0-37.0); MEAN CORPUSCULAR VOLUME 87 fL (80-100); MONOCYTES # (AUTO) 0.8 K/uL (0.1-1.0); MONOCYTES % (AUTO) 3.8 % (2.0-9.0); NEUTROPHILS # (AUTO) 18.2 K/uL (1.8-7.7); PLATELET COUNT (AUTO) 394 K/uL (150-450); RED BLOOD CELL COUNT(AUTO) 4.44 MIL/uL (4.50-5.90); RED CELL DISTRIBUTION WIDTH 13.8 % (11.5-14.5)
[2020-10-04 06:54] LABS: NEUTROPHILS % (AUTO) 90.5 % (40.0-70.0)
[2020-10-04 07:28] LABS: ALANINE AMINOTRANSFERASE 16 U/L (12-78); ALBUMIN 2.6 g/dL (3.4-5.0); ALKALINE PHOSPHATASE 91 U/L (46-116); ANION GAP 12 mmol/L (8-16); ASPARTATE AMINOTRANSFERASE 53 U/L (15-37); BILIRUBIN,TOTAL 0.6 mg/dL (0.1-1.0); C-REACTIVE PROTEIN QUANT 18.76 mg/dL (0.00-0.30); CALCIUM, TOTAL 8.9 mg/dL (8.8-10.5); CARBON DIOXIDE 22 mmol/L (22-29); CHLORIDE 96 mmol/L (98-107); CREATININE 1.23 mg/dL (0.60-1.30); GLOMERULAR FILTR. RATE CALC > 60 mL/min (>60); GLUCOSE,RANDOM 76 mg/dL (70-110); POTASSIUM 4.5 mmol/L (3.5-5.1); SODIUM SERUM 130 mmol/L (136-145); TOTAL PROTEIN, SERUM 8.1 g/dL (6.4-8.2); UREA NITROGEN, BLOOD 42 mg/dL (7-18)
[2020-10-04] MEDS: ASPIRIN 81 MG CHEWABLE TABLET PO SCH (07:56)
[2020-10-04] MEDS: FAMOTIDINE 20 MG TABLET PO SCH ×2 (07:56→21:48)
[2020-10-04] MEDS: DOCUSATE SODIUM 100 MG CAPSULE PO SCH ×2 (07:56→21:49)
[2020-10-04] MEDS: ASCORBIC ACID 500 MG TABLET PO SCH ×2 (07:56→21:48)
[2020-10-04] MEDS: CHOLECALCIFEROL (VIT D3) 1,000 UNITS [25 MCG] TABLET PO SCH (07:56)
[2020-10-04] MEDS: ENOXAPARIN SODIUM 40 MG/0.4 ML PF SYRINGE SQ SCH ×2 (07:56→21:49)
[2020-10-04] MEDS: LORATADINE 10 MG TABLET PO SCH (07:56)
[2020-10-04] MEDS: CARVEDILOL 12.5 MG TABLET PO SCH ×2 (07:57→21:48)
[2020-10-04] MEDS: DEXAMETHASONE SOD PHOS 4 MG/ML VIAL IVP SCH (07:57)
[2020-10-04] MEDS: HYOSCYAMINE SULFATE 0.125 MG TAB PO SCH ×4 (07:58→21:48)
[2020-10-04] MEDS: MAALOX/LIDOCAINE/NYSTATIN SUSP 5 ML ORAL.SYG MM SCH ×3 (07:58→16:00)
[2020-10-04] MEDS: PIOGLITAZONE HCL 30 MG TABLET PO SCH (07:58)
[2020-10-04] MEDS: LISINOPRIL 20 MG TABLET PO SCH (07:59)
[2020-10-04] MEDS: ZINC SULFATE 220 MG CAPSULE PO SCH ×2 (07:59→21:48)
[2020-10-04] MEDS: ACYCLOVIR 200 MG CAPSULE PO SCH ×3 (08:00→21:48)
[2020-10-04] MEDS: FLUTICASONE PROPIONATE 50 MCG/SPRAY 16 GM NASAL SPRAY NASAL SCH (08:02)
[2020-10-04] MEDS: ACETAMINOPHEN 325 MG TABLET PO PRN (11:36)
[2020-10-04] MEDS: INSULIN LISPRO 100 UNITS/ML SQ PRN ×2 (11:40→18:03)
[2020-10-04] MEDS ORDERED: DEXTROSE 5%-0.45% SODIUM CHL 1,000 ML IV ONE (13:30)
[2020-10-04 16:17] LABS: GLUCOMETER DEV NAME(LOC) 5N.1B; GLUCOSE,POINT OF CARE 179 MG/DL (70-110)
[2020-10-04] MEDS: AMPICILLIN SODIUM/SULBACTAM NA 3 GM in SODIUM CHLORIDE 0.9% 100 ML IV SCH ×2 (17:51→23:43)
[2020-10-04] MEDS: ATORVASTATIN CALCIUM 20 MG TABLET PO SCH (21:48)
[2020-10-04] MEDS: FLUCONAZOLE 200 MG/NACL ISOOSM 100 ML IV SCH (21:50)
[2020-10-05 04:25] VITALS: BP 103/56
[2020-10-05] MEDS: GEMFIBROZIL 600 MG TABLET PO SCH ×2 (05:25→17:00)
[2020-10-05] MEDS: LORazepam 1 MG TABLET PO SCH ×3 (05:25→18:00)
[2020-10-05] MEDS: GlipiZIDE 5 MG TABLET PO SCH ×2 (05:25→17:00)
[2020-10-05] MEDS: AMPICILLIN SODIUM/SULBACTAM NA 3 GM in SODIUM CHLORIDE 0.9% 100 ML IV SCH ×3 (05:25→21:30)
[2020-10-05 06:24] LABS: BASOPHILS % (AUTO) 0.1 % (0.0-2.0); EOSINOPHILS % (AUTO) 1.7 % (1.0-6.0); HEMATOCRIT 36.2 % (41-53); HEMOGLOBIN 12.3 g/dL (13.5-17.5); LYMPHOCYTES # (AUTO) 0.7 K/uL (1.0-4.8); LYMPHOCYTES % (AUTO) 4.4 % (22.0-44.0); MEAN CORPUSCULAR HEMOGLOBIN 29.4 pg (26.0-34.0); MEAN CORPUSCULAR HGB CONC 34.1 G/dL (31.0-37.0); MEAN CORPUSCULAR VOLUME 86 fL (80-100); MONOCYTES # (AUTO) 0.3 K/uL (0.1-1.0); PLATELET COUNT (AUTO) 378 K/uL (150-450); RED BLOOD CELL COUNT(AUTO) 4.19 MIL/uL (4.50-5.90); RED CELL DISTRIBUTION WIDTH 14.1 % (11.5-14.5)
[2020-10-05 07:28] LABS: ANION GAP 12 mmol/L (8-16); CALCIUM, TOTAL 8.7 mg/dL (8.8-10.5); CARBON DIOXIDE 23 mmol/L (22-29); CHLORIDE 93 mmol/L (98-107); CREATININE 1.16 mg/dL (0.60-1.30); GLOMERULAR FILTR. RATE CALC > 60 mL/min (>60); GLUCOSE,RANDOM 122 mg/dL (70-110); POTASSIUM 4.5 mmol/L (3.5-5.1); SODIUM SERUM 128 mmol/L (136-145); UREA NITROGEN, BLOOD 31 mg/dL (7-18)
[2020-10-05 07:41] LABS: GLUCOMETER DEV NAME(LOC) 5S.1; GLUCOSE,POINT OF CARE 121 MG/DL (70-110)
[2020-10-05 07:41] LABS: GLUCOMETER DEV NAME(LOC) 5S.1; GLUCOSE,POINT OF CARE 68 MG/DL (70-110)
[2020-10-05 07:41] LABS: GLUCOMETER DEV NAME(LOC) 5S.1; GLUCOSE,POINT OF CARE 236 MG/DL (70-110)
[2020-10-05 07:41] LABS: GLUCOMETER DEV NAME(LOC) 5S.1; GLUCOSE,POINT OF CARE 105 MG/DL (70-110)
[2020-10-05 07:52] LABS: NEUTROPHILS % (AUTO) 91.8 % (40.0-70.0)
[2020-10-05 08:35] VITALS: BP 97/49
[2020-10-05] MEDS: LISINOPRIL 20 MG TABLET PO SCH (09:00)
[2020-10-05] MEDS: PIOGLITAZONE HCL 30 MG TABLET PO SCH (09:00)
[2020-10-05] MEDS: CARVEDILOL 12.5 MG TABLET PO SCH ×2 (09:00→21:00)
[2020-10-05] MEDS: DOCUSATE SODIUM 100 MG CAPSULE PO SCH ×2 (09:00→21:00)
[2020-10-05] MEDS: ENOXAPARIN SODIUM 40 MG/0.4 ML PF SYRINGE SQ SCH (09:17)
[2020-10-05] MEDS: LORATADINE 10 MG TABLET PO SCH (09:17)
[2020-10-05] MEDS: HYOSCYAMINE SULFATE 0.125 MG TAB PO SCH ×4 (09:17→21:00)
[2020-10-05] MEDS: DEXAMETHASONE SOD PHOS 4 MG/ML VIAL IVP SCH (09:18)
[2020-10-05] MEDS: ACYCLOVIR 200 MG CAPSULE PO SCH ×3 (09:18→21:00)
[2020-10-05] MEDS: ZINC SULFATE 220 MG CAPSULE PO SCH ×2 (09:18→21:29)
[2020-10-05] MEDS: ASPIRIN 81 MG CHEWABLE TABLET PO SCH (09:18)
[2020-10-05] MEDS: CHOLECALCIFEROL (VIT D3) 1,000 UNITS [25 MCG] TABLET PO SCH (09:18)
[2020-10-05] MEDS: FAMOTIDINE 20 MG TABLET PO SCH ×2 (09:18→21:28)
[2020-10-05] MEDS: ASCORBIC ACID 500 MG TABLET PO SCH ×2 (09:18→21:28)
[2020-10-05] MEDS: FLUTICASONE PROPIONATE 50 MCG/SPRAY 16 GM NASAL SPRAY NASAL SCH (09:22)
[2020-10-05] MEDS: INSULIN LISPRO 100 UNITS/ML SQ PRN ×2 (11:32→21:31)
[2020-10-05 12:07] VITALS: BP 123/58
[2020-10-05] MEDS ORDERED: MIDAZOLAM HCL 5 MG/ML VIAL ONE (14:15)
[2020-10-05] MEDS ORDERED: FentaNYL CITRATE PF 100 MCG/2 ML VIAL ONE ×2 (14:15→15:51)
[2020-10-05] MEDS ORDERED: HEPARIN SODIUM 1000 UNITS/NS 500 ML ONE ×2 (14:25→14:50)
[2020-10-05] MEDS ORDERED: PROPOFOL 1000 MG/ISO-OSM 100 ML IV ONE ×2 (14:28→17:22)
[2020-10-05 16:16] LABS: ABG A-A DIFF O2 608.1 mmHg (10-20.0); ABG CARBOXYHEMOGLOBIN 1.2 % (0.0-1.5); ABG HCO3 20.1 mmol/L (22.0-26.0); ABG METHEMOGLOBIN 0.3 % (0.0-1.5); ABG OXYGEN CONTENT 15.7 mL/dL (15.0-23.0); ABG OXYGEN SATURATION 85.8 % (95.0-98.0); ABG OXYHEMOGLOBIN 84.5 % (94.0-100.0); ABG PCO2 46 mmHg (35-45); ABG TOTAL HEMOGLOBIN 13.2 G/dL (12.0-18.0); SOURCE, BLOOD GAS ARTERIAL; TEMPERATURE, FAHRENHEIT, BG 98.6 FAHREN (96.0-98.6)
[2020-10-05 16:18] LABS: SITE, BLOOD GAS ARTERIAL LINE
[2020-10-05 17:05] LABS: BASOPHILS % (AUTO) 0.2 % (0.0-2.0); EOSINOPHILS % (AUTO) 0.3 % (1.0-6.0); HEMATOCRIT 34.9 % (41-53); HEMOGLOBIN 11.4 g/dL (13.5-17.5); LYMPHOCYTES # (AUTO) 0.3 K/uL (1.0-4.8); LYMPHOCYTES % (AUTO) 2.1 % (22.0-44.0); MEAN CORPUSCULAR HGB CONC 32.7 G/dL (31.0-37.0); MEAN CORPUSCULAR VOLUME 89 fL (80-100); MONOCYTES # (AUTO) 0.2 K/uL (0.1-1.0); MONOCYTES % (AUTO) 1.6 % (2.0-9.0); NEUTROPHILS # (AUTO) 14.8 K/uL (1.8-7.7); PLATELET COUNT (AUTO) 339 K/uL (150-450); RED BLOOD CELL COUNT(AUTO) 3.94 MIL/uL (4.50-5.90); RED CELL DISTRIBUTION WIDTH 14.1 % (11.5-14.5)
[2020-10-05] MEDS ORDERED: MIDAZOLAM HCL 2 MG/2 ML VIAL ONE (17:13)
[2020-10-05 17:15] LABS: NEUTROPHILS % (AUTO) 95.8 % (40.0-70.0)
[2020-10-05 17:25] LABS: INR 1.2 (0.9-1.1); PROTHROMBIN TIME 12.8 SEC (9.4-11.6)
[2020-10-05 17:44] LABS: GLUCOSE,POINT OF CARE 266 MG/DL (70-110)
[2020-10-05 17:44] LABS: B-TYPE NATRIURETIC PEPTIDE 16 pg/mL (0-100)
[2020-10-05] MEDS ORDERED: HEPARIN SODIUM,PORCINE 5,000 UNITS/ML VIAL IVP PRN ×2 (18:15)
[2020-10-05 18:57] LABS: ANION GAP 12 mmol/L (8-16); CALCIUM, TOTAL 8.1 mg/dL (8.8-10.5); CARBON DIOXIDE 21 mmol/L (22-29); CHLORIDE 95 mmol/L (98-107); GLOMERULAR FILTR. RATE CALC > 60 mL/min (>60); GLUCOSE,RANDOM 254 mg/dL (70-110); POTASSIUM 5.4 mmol/L (3.5-5.1); SODIUM SERUM 128 mmol/L (136-145); UREA NITROGEN, BLOOD 30 mg/dL (7-18)
[2020-10-05 19:02] LABS: ALANINE AMINOTRANSFERASE 85 U/L (12-78); ALBUMIN 2.1 g/dL (3.4-5.0); ALKALINE PHOSPHATASE 87 U/L (46-116); ASPARTATE AMINOTRANSFERASE 111 U/L (15-37); BILIRUBIN,TOTAL 0.9 mg/dL (0.1-1.0); TOTAL PROTEIN, SERUM 7.4 g/dL (6.4-8.2)
[2020-10-05 20:00] VITALS: BP 112/66
[2020-10-05] MEDS: PROPOFOL 1000 MG/ISO-OSM 100 ML IV PRN ×2 (20:01→21:02)
[2020-10-05] MEDS: FentaNYL CITRATE PF 500 MCG in DEXTROSE 5%-WATER 90 ML IV PRN ×2 (20:02→22:21)
[2020-10-05] MEDS: CISATRACURIUM BESYLATE 50 MG in DEXTROSE 5%-WATER 245 ML IV PRN (20:04)
[2020-10-05] MEDS: NOREPINEPHRINE 4 MG/D5%-WATER 250 ML IV PRN (20:05)
[2020-10-05 20:45] LABS: GLUCOSE,POINT OF CARE 277 MG/DL (70-110)
[2020-10-05] MEDS: ATORVASTATIN CALCIUM 20 MG TABLET PO SCH (21:29)
[2020-10-05 22:00] VITALS: BP 124/56
[2020-10-05] MEDS: FLUCONAZOLE 200 MG/NACL ISOOSM 100 ML IV SCH (23:11)
[2020-10-05] MEDS: ACETAMINOPHEN 650 MG RECTAL SUPPOSITORY PR PRN (23:25)
[2020-10-05] MEDS: HEPARIN SODIUM 25000 UNITS/D5W 250 ML IV PRN (23:59)
[2020-10-06] VITALS (15 sets, daily range): BP systolic 98–191; BP diastolic 47–78
[2020-10-06] MEDS: PROPOFOL 1000 MG/ISO-OSM 100 ML IV PRN ×4 (00:51→22:22)
[2020-10-06] MEDS: NOREPINEPHRINE 4 MG/D5%-WATER 250 ML IV PRN (00:52)
[2020-10-06 01:03] LABS: ABG A-A DIFF O2 467.7 mmHg (10-20.0); ABG CARBOXYHEMOGLOBIN 0.1 % (0.0-1.5); ABG HCO3 23.7 mmol/L (22.0-26.0); ABG METHEMOGLOBIN 0.3 % (0.0-1.5); ABG OXYGEN CONTENT 16.8 mL/dL (15.0-23.0); ABG OXYGEN SATURATION 99.1 % (95.0-98.0); ABG OXYHEMOGLOBIN 98.7 % (94.0-100.0); ABG PCO2 30 mmHg (35-45); ABG PH 7.477 (7.35-7.450); ABG TOTAL HEMOGLOBIN 11.8 G/dL (12.0-18.0); PO2, ARTERIAL BG 212.4 mmHg (84.0-92.0); SOURCE, BLOOD GAS ARTERIAL; TEMPERATURE, FAHRENHEIT, BG 100.7 FAHREN (96.0-98.6)
[2020-10-06] MEDS: MIDAZOLAM HCL 100 MG in DEXTROSE 5%-WATER 180 ML IV PRN ×2 (01:23→01:43)
[2020-10-06 02:30] LABS: O2 DEVICE,BLOOD GAS VENTILATOR (ROOM AIR); PEEP,BG 12 cm H2O; SITE, BLOOD GAS ARTERIAL LINE; VENT MODE, BG Press. Control Vent (ROOM AIR)
[2020-10-06] MEDS: CISATRACURIUM BESYLATE 50 MG in DEXTROSE 5%-WATER 245 ML IV PRN ×2 (03:17→16:24)
[2020-10-06] MEDS: AMPICILLIN SODIUM/SULBACTAM NA 3 GM in SODIUM CHLORIDE 0.9% 100 ML IV SCH ×4 (04:13→21:43)
[2020-10-06] MEDS ORDERED: CISATRACURIUM BESYLATE 20 MG in DEXTROSE 5%-WATER 98 ML IV PRN (04:15)
[2020-10-06 04:56] LABS: GLUCOMETER DEV NAME(LOC) 5N.1B; GLUCOSE,POINT OF CARE 182 MG/DL (70-110)
[2020-10-06] MEDS: LORazepam 1 MG TABLET PO SCH ×4 (06:00→18:00)
[2020-10-06 06:19] LABS: BASOPHILS % (AUTO) 0.3 % (0.0-2.0); EOSINOPHILS % (AUTO) 1.4 % (1.0-6.0); HEMATOCRIT 30.8 % (41-53); HEMOGLOBIN 10.7 g/dL (13.5-17.5); LYMPHOCYTES # (AUTO) 0.7 K/uL (1.0-4.8); MEAN CORPUSCULAR HEMOGLOBIN 29.7 pg (26.0-34.0); MEAN CORPUSCULAR HGB CONC 34.7 G/dL (31.0-37.0); MEAN CORPUSCULAR VOLUME 86 fL (80-100); MONOCYTES # (AUTO) 0.3 K/uL (0.1-1.0); MONOCYTES % (AUTO) 1.9 % (2.0-9.0); NEUTROPHILS # (AUTO) 15.2 K/uL (1.8-7.7); PLATELET COUNT (AUTO) 365 K/uL (150-450); RED BLOOD CELL COUNT(AUTO) 3.59 MIL/uL (4.50-5.90); RED CELL DISTRIBUTION WIDTH 14.4 % (11.5-14.5)
[2020-10-06] MEDS: INSULIN LISPRO 100 UNITS/ML SQ PRN ×3 (06:27→17:43)
[2020-10-06 06:44] LABS: NEUTROPHILS % (AUTO) 92.4 % (40.0-70.0)
[2020-10-06 06:55] LABS: GLUCOSE,POINT OF CARE 206 MG/DL (70-110)
[2020-10-06] MEDS: FentaNYL CITRATE PF 500 MCG in DEXTROSE 5%-WATER 90 ML IV PRN ×2 (06:57→14:51)
[2020-10-06] MEDS: GlipiZIDE 5 MG TABLET PO SCH ×2 (07:30→17:00)
[2020-10-06] MEDS: GEMFIBROZIL 600 MG TABLET PO SCH ×2 (07:30→17:00)
[2020-10-06] MEDS: DOCUSATE SODIUM 100 MG CAPSULE PO SCH ×2 (09:00→21:00)
[2020-10-06] MEDS: CARVEDILOL 12.5 MG TABLET PO SCH ×2 (09:00→21:00)
[2020-10-06] MEDS: LORATADINE 10 MG TABLET PO SCH (09:00)
[2020-10-06] MEDS: FLUTICASONE PROPIONATE 50 MCG/SPRAY 16 GM NASAL SPRAY NASAL SCH ×2 (09:00→09:30)
[2020-10-06] MEDS: PIOGLITAZONE HCL 30 MG TABLET PO SCH (09:00)
[2020-10-06] MEDS: ACYCLOVIR 200 MG CAPSULE PO SCH ×2 (09:00→09:31)
[2020-10-06] MEDS: ASPIRIN 81 MG CHEWABLE TABLET PO SCH (09:00)
[2020-10-06] MEDS: FAMOTIDINE 20 MG TABLET PO SCH ×2 (09:00→09:30)
[2020-10-06] MEDS: LISINOPRIL 20 MG TABLET PO SCH (09:00)
[2020-10-06] MEDS: ASCORBIC ACID 500 MG TABLET PO SCH (09:30)
[2020-10-06] MEDS: DEXAMETHASONE SOD PHOS 4 MG/ML VIAL IVP SCH (09:30)
[2020-10-06] MEDS: ZINC SULFATE 220 MG CAPSULE PO SCH (09:31)
[2020-10-06] MEDS: CHOLECALCIFEROL (VIT D3) 1,000 UNITS [25 MCG] TABLET PO SCH (09:31)
[2020-10-06] MEDS: HYOSCYAMINE SULFATE 0.125 MG TAB PO SCH ×4 (10:11→21:00)
[2020-10-06 10:53] LABS: ABG A-A DIFF O2 545.3 mmHg (10-20.0); ABG BASE EXCESS 0.7 mmol/L (-2.0-3.0); ABG CARBOXYHEMOGLOBIN 0.5 % (0.0-1.5); ABG HCO3 23.2 mmol/L (22.0-26.0); ABG METHEMOGLOBIN 0.2 % (0.0-1.5); ABG OXYGEN CONTENT 15.7 mL/dL (15.0-23.0); ABG OXYGEN SATURATION 88.9 % (95.0-98.0); ABG OXYHEMOGLOBIN 88.3 % (94.0-100.0); ABG TOTAL HEMOGLOBIN 12.6 G/dL (12.0-18.0); PO2, ARTERIAL BG 73.6 mmHg (84.0-92.0); SOURCE, BLOOD GAS ARTERIAL; TEMPERATURE, FAHRENHEIT, BG 101.5 FAHREN (96.0-98.6)
[2020-10-06] MEDS: ACETAMINOPHEN 650 MG RECTAL SUPPOSITORY PR PRN (10:53)
[2020-10-06 10:56] LABS: ABG PCO2 90 mmHg (35-45); ABG PH 7.142 (7.35-7.450); SITE, BLOOD GAS ARTERIAL LINE
[2020-10-06 10:57] LABS: O2 DEVICE,BLOOD GAS VENTILATOR (ROOM AIR); PEEP,BG 12 cm H2O; SPONTANEOUS VT, BG 540 ml; VENT MODE, BG Press. Control Vent (ROOM AIR)
[2020-10-06] MEDS ORDERED: SODIUM BICARBONATE [ADULT] 8.4% 50 MEQ/50 ML SYRINGE IVP ONE (11:13)
[2020-10-06 12:49] LABS: BASOPHILS % (AUTO) 0.1 % (0.0-2.0); EOSINOPHILS % (AUTO) 0.2 % (1.0-6.0); HEMOGLOBIN 11.1 g/dL (13.5-17.5); LYMPHOCYTES # (AUTO) 0.2 K/uL (1.0-4.8); LYMPHOCYTES % (AUTO) 1.5 % (22.0-44.0); MEAN CORPUSCULAR HEMOGLOBIN 28.5 pg (26.0-34.0); MEAN CORPUSCULAR HGB CONC 32.5 G/dL (31.0-37.0); MEAN CORPUSCULAR VOLUME 88 fL (80-100); MONOCYTES # (AUTO) 0.2 K/uL (0.1-1.0); MONOCYTES % (AUTO) 1.3 % (2.0-9.0); NEUTROPHILS # (AUTO) 15.5 K/uL (1.8-7.7); PLATELET COUNT (AUTO) 357 K/uL (150-450); RED BLOOD CELL COUNT(AUTO) 3.88 MIL/uL (4.50-5.90)
[2020-10-06 12:59] LABS: NEUTROPHILS % (AUTO) 96.9 % (40.0-70.0)
[2020-10-06 13:08] LABS: ANION GAP 7 mmol/L (8-16); CALCIUM, TOTAL 8.2 mg/dL (8.8-10.5); CARBON DIOXIDE 27 mmol/L (22-29); CHLORIDE 93 mmol/L (98-107); CREATININE 0.93 mg/dL (0.60-1.30); GLOMERULAR FILTR. RATE CALC > 60 mL/min (>60); GLUCOSE,RANDOM 191 mg/dL (70-110); POTASSIUM 5.9 mmol/L (3.5-5.1); SODIUM SERUM 127 mmol/L (136-145); UREA NITROGEN, BLOOD 22 mg/dL (7-18)
[2020-10-06 13:11] LABS: D-DIMER 22.15 mg/L FEU (0.00-0.50); INR 1.1 (0.9-1.1)
[2020-10-06 13:35] LABS: ALANINE AMINOTRANSFERASE 64 U/L (12-78); ALBUMIN 1.8 g/dL (3.4-5.0); ALKALINE PHOSPHATASE 76 U/L (46-116); ASPARTATE AMINOTRANSFERASE 37 U/L (15-37); BILIRUBIN,TOTAL 0.3 mg/dL (0.1-1.0); C-REACTIVE PROTEIN QUANT 22.92 mg/dL (0.00-0.30); CREATINE KINASE, TOTAL ONLY 35 U/L (39-308); FERRITIN 784 ng/mL (26-388); LACTATE DEHYDROGENASE 513 U/L (85-227); TOTAL PROTEIN, SERUM 7.1 g/dL (6.4-8.2)
[2020-10-06] MEDS ORDERED: SODIUM POLYSTYRENE SULFONATE 15 GM/60 ML SUSPENSION BOTTLE PO ONE (13:45)
[2020-10-06 13:55] LABS: GLUCOSE,POINT OF CARE 220 MG/DL (70-110)
[2020-10-06 14:38] LABS: ABG A-A DIFF O2 539.8 mmHg (10-20.0); ABG BASE EXCESS -0.1 mmol/L (-2.0-3.0); ABG CARBOXYHEMOGLOBIN 0.3 % (0.0-1.5); ABG METHEMOGLOBIN 0.1 % (0.0-1.5); ABG OXYGEN CONTENT 16.6 mL/dL (15.0-23.0); ABG OXYGEN SATURATION 97.7 % (95.0-98.0); ABG OXYHEMOGLOBIN 97.3 % (94.0-100.0); ABG PCO2 52 mmHg (35-45); ABG PH 7.315 (7.35-7.450); PO2, ARTERIAL BG 117.3 mmHg (84.0-92.0); SOURCE, BLOOD GAS ARTERIAL
[2020-10-06 14:40] LABS: O2 DEVICE,BLOOD GAS VENTILATOR (ROOM AIR); SITE, BLOOD GAS ARTERIAL LINE
[2020-10-06 14:41] LABS: PEEP,BG 12 cm H2O; SPONTANEOUS VT, BG 604 ml; VENT MODE, BG Press. Control Vent (ROOM AIR)
[2020-10-06] MEDS: WATER IV PRN (16:17)
[2020-10-06] MEDS: FENTANYL CITRATE IV PRN (16:17)
[2020-10-06 17:44] LABS: GLUCOSE,POINT OF CARE 247 MG/DL (70-110)
[2020-10-06] MEDS: ATORVASTATIN CALCIUM 20 MG TABLET PO SCH (21:00)
[2020-10-06] MEDS: FLUCONAZOLE 200 MG/NACL ISOOSM 100 ML IV SCH (21:52)
[2020-10-07] VITALS (8 sets, daily range): BP systolic 114–139; BP diastolic 52–77
[2020-10-07] MEDS: NOREPINEPHRINE 4 MG/D5%-WATER 250 ML IV PRN (00:25)
[2020-10-07] MEDS: FAMOTIDINE 10 MG/ML 2 ML VIAL IVP SCH ×3 (01:05→21:35)
[2020-10-07] MEDS: AMPICILLIN SODIUM/SULBACTAM NA 3 GM in SODIUM CHLORIDE 0.9% 100 ML IV SCH ×4 (01:12→21:12)
[2020-10-07] MEDS: PROPOFOL 1000 MG/ISO-OSM 100 ML IV PRN ×3 (01:48→23:57)
[2020-10-07] MEDS: DEXMEDETOMIDINE HCL 200 MCG in SODIUM CHLORIDE 0.9% 48 ML IV PRN (03:16)
[2020-10-07] MEDS: FENTANYL CITRATE IV PRN (03:18)
[2020-10-07] MEDS: WATER IV PRN (03:18)
[2020-10-07] MEDS: LORazepam 1 MG TABLET PO SCH ×5 (05:21→23:28)
[2020-10-07] MEDS: GlipiZIDE 5 MG TABLET PO SCH ×2 (05:21→17:00)
[2020-10-07] MEDS: GEMFIBROZIL 600 MG TABLET PO SCH ×2 (05:22→17:00)
[2020-10-07] MEDS ORDERED: LIDOCAINE/PF 2% 5 ML SYRINGE IVP ONE (05:23)
[2020-10-07] MEDS ORDERED: ROCURONIUM BROMIDE 10 MG/ML 5 ML VIAL IVP ONE (05:23)
[2020-10-07] MEDS ORDERED: ETOMIDATE 2 MG/ML 10 ML VIAL IVP ONE (05:23)
[2020-10-07] MEDS: DEXAMETHASONE SOD PHOS 4 MG/ML VIAL IVP SCH (08:51)
[2020-10-07] MEDS: LISINOPRIL 20 MG TABLET PO SCH (09:00)
[2020-10-07] MEDS: LORATADINE 10 MG TABLET PO SCH (09:00)
[2020-10-07] MEDS: FLUTICASONE PROPIONATE 50 MCG/SPRAY 16 GM NASAL SPRAY NASAL SCH (09:00)
[2020-10-07] MEDS: CARVEDILOL 12.5 MG TABLET PO SCH ×2 (09:00→21:00)
[2020-10-07] MEDS: PIOGLITAZONE HCL 30 MG TABLET PO SCH (09:00)
[2020-10-07] MEDS: HYOSCYAMINE SULFATE 0.125 MG TAB PO SCH ×4 (09:00→21:00)
[2020-10-07] MEDS: ASPIRIN 81 MG CHEWABLE TABLET PO SCH (09:26)
[2020-10-07] MEDS: DOCUSATE SODIUM 100 MG CAPSULE PO SCH ×2 (09:27→21:00)
[2020-10-07 09:38] LABS: ANION GAP 3 mmol/L (8-16); CALCIUM, TOTAL 8.5 mg/dL (8.8-10.5); CARBON DIOXIDE 30 mmol/L (22-29); CHLORIDE 95 mmol/L (98-107); CREATININE 1.01 mg/dL (0.60-1.30); GLOMERULAR FILTR. RATE CALC > 60 mL/min (>60); GLUCOSE,RANDOM 156 mg/dL (70-110); POTASSIUM 4.8 mmol/L (3.5-5.1); SODIUM SERUM 128 mmol/L (136-145); UREA NITROGEN, BLOOD 21 mg/dL (7-18)
[2020-10-07 09:39] LABS: C-REACTIVE PROTEIN QUANT 19.54 mg/dL (0.00-0.30)
[2020-10-07 10:48] LABS: SOURCE, BLOOD GAS ARTERIAL
[2020-10-07 10:49] LABS: ABG BASE EXCESS 5.6 mmol/L (-2.0-3.0); ABG CARBOXYHEMOGLOBIN 0.1 % (0.0-1.5); ABG HCO3 29.1 mmol/L (22.0-26.0); ABG METHEMOGLOBIN 0.3 % (0.0-1.5); ABG OXYGEN CONTENT 14.5 mL/dL (15.0-23.0); ABG OXYGEN SATURATION 96.1 % (95.0-98.0); ABG OXYHEMOGLOBIN 95.7 % (94.0-100.0); ABG PCO2 43 mmHg (35-45); ABG PH 7.454 (7.35-7.450); ABG TOTAL HEMOGLOBIN 10.7 G/dL (12.0-18.0); PO2, ARTERIAL BG 83.8 mmHg (84.0-92.0)
[2020-10-07] MEDS ORDERED: MIDAZOLAM HCL 5 MG/ML VIAL ONE ×2 (10:50→13:28)
[2020-10-07 11:05] LABS: O2 DEVICE,BLOOD GAS VENTILATOR (ROOM AIR); SITE, BLOOD GAS ARTERIAL LINE
[2020-10-07 11:06] LABS: PEEP,BG 12 cm H2O; SPONTANEOUS VT, BG 680 ml; VENT MODE, BG Press. Control Vent (ROOM AIR)
[2020-10-07 11:11] LABS: BASOPHILS % (AUTO) 0.2 % (0.0-2.0); EOSINOPHILS % (AUTO) 0.4 % (1.0-6.0); HEMATOCRIT 29.5 % (41-53); HEMOGLOBIN 9.7 g/dL (13.5-17.5); LYMPHOCYTES # (AUTO) 0.3 K/uL (1.0-4.8); LYMPHOCYTES % (AUTO) 2.2 % (22.0-44.0); MEAN CORPUSCULAR HEMOGLOBIN 28.6 pg (26.0-34.0); MEAN CORPUSCULAR HGB CONC 32.8 G/dL (31.0-37.0); MEAN CORPUSCULAR VOLUME 87 fL (80-100); MONOCYTES # (AUTO) 0.4 K/uL (0.1-1.0); MONOCYTES % (AUTO) 2.9 % (2.0-9.0); NEUTROPHILS # (AUTO) 13.3 K/uL (1.8-7.7); PLATELET COUNT (AUTO) 347 K/uL (150-450); RED BLOOD CELL COUNT(AUTO) 3.39 MIL/uL (4.50-5.90); RED CELL DISTRIBUTION WIDTH 13.6 % (11.5-14.5)
[2020-10-07 11:13] LABS: NEUTROPHILS % (AUTO) 94.3 % (40.0-70.0)
[2020-10-07 11:39] LABS: B-TYPE NATRIURETIC PEPTIDE 119 pg/mL (0-100)
[2020-10-07 12:00] LABS: LACTATE DEHYDROGENASE 464 U/L (85-227)
[2020-10-07 12:01] LABS: LACTIC ACID 2.2 mmol/L (0.4-2.0)
[2020-10-07 12:13] LABS: INR 1.1 (0.9-1.1); PROTHROMBIN TIME 11.4 SEC (9.4-11.6)
[2020-10-07 18:06] LABS: GLUCOSE,POINT OF CARE 215 MG/DL (70-110)
[2020-10-07] MEDS: HEPARIN SODIUM 25000 UNITS/D5W 250 ML IV PRN (19:46)
[2020-10-07 20:39] LABS: GLUCOSE,POINT OF CARE 197 MG/DL (70-110)
[2020-10-07] MEDS: ATORVASTATIN CALCIUM 20 MG TABLET PO SCH (21:00)
[2020-10-07] MEDS: INSULIN LISPRO 100 UNITS/ML SQ PRN (21:48)
[2020-10-08] VITALS (7 sets, daily range): BP systolic 113–153; BP diastolic 51–62
[2020-10-08 01:04] LABS: OCCULT BLOOD,GASTRIC FLUID POSITIVE (NEGATIVE)
[2020-10-08] MEDS: MIDAZOLAM HCL 100 MG in DEXTROSE 5%-WATER 180 ML IV PRN ×2 (01:11→16:12)
[2020-10-08] MEDS: AMPICILLIN SODIUM/SULBACTAM NA 3 GM in SODIUM CHLORIDE 0.9% 100 ML IV SCH ×3 (03:49→15:34)
[2020-10-08] MEDS: PROPOFOL 1000 MG/ISO-OSM 100 ML IV PRN ×3 (04:22→22:23)
[2020-10-08] MEDS: LORazepam 1 MG TABLET PO SCH ×3 (05:10→18:00)
[2020-10-08] MEDS: GEMFIBROZIL 600 MG TABLET PO SCH ×2 (05:56→17:00)
[2020-10-08] MEDS: GlipiZIDE 5 MG TABLET PO SCH ×2 (05:56→17:00)
[2020-10-08 07:06] LABS: BASOPHILS % (AUTO) 0.2 % (0.0-2.0); EOSINOPHILS % (AUTO) 0.1 % (1.0-6.0); HEMATOCRIT 27.8 % (41-53); HEMOGLOBIN 9.4 g/dL (13.5-17.5); LYMPHOCYTES # (AUTO) 0.6 K/uL (1.0-4.8); LYMPHOCYTES % (AUTO) 7.1 % (22.0-44.0); MEAN CORPUSCULAR HEMOGLOBIN 29.4 pg (26.0-34.0); MEAN CORPUSCULAR HGB CONC 33.8 G/dL (31.0-37.0); MEAN CORPUSCULAR VOLUME 87 fL (80-100); MONOCYTES # (AUTO) 0.5 K/uL (0.1-1.0); MONOCYTES % (AUTO) 5.7 % (2.0-9.0); NEUTROPHILS # (AUTO) 6.8 K/uL (1.8-7.7); PLATELET COUNT (AUTO) 341 K/uL (150-450)
[2020-10-08 07:15] LABS: NEUTROPHILS % (AUTO) 86.9 % (40.0-70.0)
[2020-10-08] MEDS: INSULIN LISPRO 100 UNITS/ML SQ PRN ×2 (07:23→17:46)
[2020-10-08] MEDS: PIOGLITAZONE HCL 30 MG TABLET PO SCH (09:00)
[2020-10-08] MEDS: LISINOPRIL 20 MG TABLET PO SCH (09:00)
[2020-10-08] MEDS: HYOSCYAMINE SULFATE 0.125 MG TAB PO SCH ×3 (09:00→16:00)
[2020-10-08] MEDS: DOCUSATE SODIUM 100 MG CAPSULE PO SCH (09:00)
[2020-10-08] MEDS: FLUTICASONE PROPIONATE 50 MCG/SPRAY 16 GM NASAL SPRAY NASAL SCH (09:00)
[2020-10-08] MEDS: CARVEDILOL 12.5 MG TABLET PO SCH (09:00)
[2020-10-08] MEDS: LORATADINE 10 MG TABLET PO SCH (09:00)
[2020-10-08] MEDS: ASPIRIN 81 MG CHEWABLE TABLET PO SCH (09:00)
[2020-10-08] MEDS: FAMOTIDINE 10 MG/ML 2 ML VIAL IVP SCH (09:54)
[2020-10-08] MEDS: DEXAMETHASONE SOD PHOS 4 MG/ML VIAL IVP SCH (09:54)
[2020-10-08] MEDS: WATER IV PRN (10:00)
[2020-10-08] MEDS: FENTANYL CITRATE IV PRN (10:00)
[2020-10-08] MEDS: ACETAMINOPHEN 650 MG RECTAL SUPPOSITORY PR PRN ×2 (12:35→18:43)
[2020-10-08 13:29] LABS: ABG BASE EXCESS 9.3 mmol/L (-2.0-3.0); ABG CARBOXYHEMOGLOBIN 0.4 % (0.0-1.5); ABG HCO3 31.8 mmol/L (22.0-26.0); ABG METHEMOGLOBIN 0.3 % (0.0-1.5); ABG OXYGEN CONTENT 15.7 mL/dL (15.0-23.0); ABG OXYGEN SATURATION 90.4 % (95.0-98.0); ABG OXYHEMOGLOBIN 89.8 % (94.0-100.0); ABG PCO2 49 mmHg (35-45); ABG PH 7.447 (7.35-7.450); ABG TOTAL HEMOGLOBIN 12.4 G/dL (12.0-18.0); PO2, ARTERIAL BG 60.5 mmHg (84.0-92.0); SOURCE, BLOOD GAS ARTERIAL; TEMPERATURE, FAHRENHEIT, BG 100.2 FAHREN (96.0-98.6)
[2020-10-08 13:30] LABS: O2 DEVICE,BLOOD GAS VENTILATOR (ROOM AIR); SITE, BLOOD GAS ARTERIAL LINE; VENT MODE, BG PCV Inverse Ratio (ROOM AIR); VT, ABG 970 ml
[2020-10-08 13:31] LABS: PEEP,BG 12 cm H2O
[2020-10-08 13:58] LABS: GLUCOSE,POINT OF CARE 143 MG/DL (70-110)
[2020-10-09] VITALS (8 sets, daily range): BP systolic 112–135; BP diastolic 52–61
[2020-10-09] MEDS: HYOSCYAMINE SULFATE 0.125 MG TAB PO SCH ×5 (01:41→20:43)
[2020-10-09] MEDS: CARVEDILOL 12.5 MG TABLET PO SCH ×3 (01:41→20:42)
[2020-10-09] MEDS: ATORVASTATIN CALCIUM 20 MG TABLET PO SCH ×2 (01:55→20:43)
[2020-10-09] MEDS: DOCUSATE SODIUM 100 MG CAPSULE PO SCH ×3 (01:55→20:42)
[2020-10-09] MEDS: PROPOFOL 1000 MG/ISO-OSM 100 ML IV PRN ×3 (02:18→21:59)
[2020-10-09] MEDS: AMPICILLIN SODIUM/SULBACTAM NA 3 GM in SODIUM CHLORIDE 0.9% 100 ML IV SCH ×4 (02:23→15:53)
[2020-10-09] MEDS: FAMOTIDINE 10 MG/ML 2 ML VIAL IVP SCH ×3 (02:23→20:45)
[2020-10-09 04:47] LABS: BASOPHILS % (AUTO) 0.1 % (0.0-2.0); EOSINOPHILS % (AUTO) 0.3 % (1.0-6.0); HEMATOCRIT 28.4 % (41-53); HEMOGLOBIN 9.5 g/dL (13.5-17.5); LYMPHOCYTES # (AUTO) 0.8 K/uL (1.0-4.8); LYMPHOCYTES % (AUTO) 9.2 % (22.0-44.0); MEAN CORPUSCULAR HEMOGLOBIN 29.1 pg (26.0-34.0); MEAN CORPUSCULAR HGB CONC 33.5 G/dL (31.0-37.0); MEAN CORPUSCULAR VOLUME 87 fL (80-100); MONOCYTES # (AUTO) 0.6 K/uL (0.1-1.0); MONOCYTES % (AUTO) 7.5 % (2.0-9.0); NEUTROPHILS # (AUTO) 7.1 K/uL (1.8-7.7); NEUTROPHILS % (AUTO) 82.9 % (40.0-70.0); PLATELET COUNT (AUTO) 357 K/uL (150-450); RED BLOOD CELL COUNT(AUTO) 3.27 MIL/uL (4.50-5.90); RED CELL DISTRIBUTION WIDTH 13.6 % (11.5-14.5)
[2020-10-09 05:03] LABS: ALANINE AMINOTRANSFERASE 54 U/L (12-78); ALBUMIN 1.8 g/dL (3.4-5.0); ALKALINE PHOSPHATASE 59 U/L (46-116); ANION GAP 2 mmol/L (8-16); ASPARTATE AMINOTRANSFERASE 40 U/L (15-37); BILIRUBIN,TOTAL 0.3 mg/dL (0.1-1.0); C-REACTIVE PROTEIN QUANT 6.33 mg/dL (0.00-0.30); CALCIUM, TOTAL 8.5 mg/dL (8.8-10.5); CARBON DIOXIDE 32 mmol/L (22-29); CHLORIDE 95 mmol/L (98-107); CREATININE 0.84 mg/dL (0.60-1.30); GLOMERULAR FILTR. RATE CALC > 60 mL/min (>60); GLUCOSE,RANDOM 149 mg/dL (70-110); POTASSIUM 4.9 mmol/L (3.5-5.1); SODIUM SERUM 129 mmol/L (136-145); TOTAL PROTEIN, SERUM 6.8 g/dL (6.4-8.2); UREA NITROGEN, BLOOD 35 mg/dL (7-18)
[2020-10-09] MEDS: LORazepam 1 MG TABLET PO SCH ×4 (06:00→23:27)
[2020-10-09] MEDS: GlipiZIDE 5 MG TABLET PO SCH ×2 (06:30→17:00)
[2020-10-09] MEDS: GEMFIBROZIL 600 MG TABLET PO SCH ×2 (06:30→17:00)
[2020-10-09] MEDS: MIDAZOLAM HCL 100 MG in DEXTROSE 5%-WATER 180 ML IV PRN ×2 (07:09→19:32)
[2020-10-09] MEDS: ASPIRIN 81 MG CHEWABLE TABLET PO SCH (09:00)
[2020-10-09] MEDS: LORATADINE 10 MG TABLET PO SCH (09:00)
[2020-10-09] MEDS: PIOGLITAZONE HCL 30 MG TABLET PO SCH (09:00)
[2020-10-09] MEDS: FLUTICASONE PROPIONATE 50 MCG/SPRAY 16 GM NASAL SPRAY NASAL SCH (09:00)
[2020-10-09] MEDS: LISINOPRIL 20 MG TABLET PO SCH (09:00)
[2020-10-09 09:44] LABS: INR 1.1 (0.9-1.1); PROTHROMBIN TIME 11.4 SEC (9.4-11.6)
[2020-10-09 10:58] LABS: ABG A-A DIFF O2 370.3 mmHg (10-20.0); ABG BASE EXCESS 8.9 mmol/L (-2.0-3.0); ABG CARBOXYHEMOGLOBIN 0.3 % (0.0-1.5); ABG HCO3 31.4 mmol/L (22.0-26.0); ABG METHEMOGLOBIN 0.3 % (0.0-1.5); ABG OXYGEN CONTENT 13.8 mL/dL (15.0-23.0); ABG OXYGEN SATURATION 92.8 % (95.0-98.0); ABG OXYHEMOGLOBIN 92.2 % (94.0-100.0); ABG PCO2 57 mmHg (35-45); ABG PH 7.395 (7.35-7.450); ABG TOTAL HEMOGLOBIN 10.6 G/dL (12.0-18.0); PO2, ARTERIAL BG 66.9 mmHg (84.0-92.0); SOURCE, BLOOD GAS ARTERIAL; TEMPERATURE, FAHRENHEIT, BG 99.7 FAHREN (96.0-98.6)
[2020-10-09 10:59] LABS: O2 DEVICE,BLOOD GAS VENTILATOR (ROOM AIR); SITE, BLOOD GAS ARTERIAL LINE; VENT MODE, BG Press. Control Vent (ROOM AIR)
[2020-10-09 11:00] LABS: PEEP,BG 10 cm H2O; VT, ABG 587 ml
[2020-10-09] MEDS ORDERED: SODIUM CHLORIDE 0.9% 1,000 ML ONE (12:18)
[2020-10-09] MEDS: DEXAMETHASONE SOD PHOS 4 MG/ML VIAL IVP SCH (12:21)
[2020-10-09 12:52] LABS: GLUCOSE,POINT OF CARE 144 MG/DL (70-110)
[2020-10-09] MEDS: ACETAMINOPHEN 650 MG RECTAL SUPPOSITORY PR PRN (13:34)
[2020-10-09] MEDS: INSULIN LISPRO 100 UNITS/ML SQ PRN ×2 (17:37→21:46)
[2020-10-09 18:34] LABS: GLUCOSE,POINT OF CARE 206 MG/DL (70-110)
[2020-10-09] MEDS: DAPTOMYCIN 500 MG in SODIUM CHLORIDE 0.9% 50 ML IV SCH (19:33)
[2020-10-09] MEDS: WATER IV PRN (21:17)
[2020-10-09] MEDS: FENTANYL CITRATE IV PRN (21:17)
[2020-10-09] MEDS: PANTOPRAZOLE SODIUM 80 MG in SODIUM CHLORIDE 0.9% 100 ML IV SCH (21:18)
[2020-10-09 21:20] LABS: GLUCOSE,POINT OF CARE 180 MG/DL (70-110)
[2020-10-10] VITALS (7 sets, daily range): BP systolic 78–130; BP diastolic 51–60
[2020-10-10] MEDS: PROPOFOL 1000 MG/ISO-OSM 100 ML IV PRN ×5 (01:42→15:58)
[2020-10-10] MEDS: WATER IV PRN ×4 (01:50→20:30)
[2020-10-10] MEDS: FENTANYL CITRATE IV PRN ×4 (01:50→20:30)
[2020-10-10] MEDS: LORazepam 1 MG TABLET PO SCH ×3 (05:08→17:10)
[2020-10-10] MEDS: PANTOPRAZOLE SODIUM 80 MG in SODIUM CHLORIDE 0.9% 100 ML IV SCH ×2 (05:40→16:13)
[2020-10-10] MEDS: GlipiZIDE 5 MG TABLET PO SCH ×2 (06:02→16:13)
[2020-10-10] MEDS: GEMFIBROZIL 600 MG TABLET PO SCH ×2 (06:02→16:13)
[2020-10-10] MEDS: MIDAZOLAM HCL 100 MG in DEXTROSE 5%-WATER 180 ML IV PRN ×2 (06:12→17:01)
[2020-10-10 06:46] LABS: GLUCOSE,POINT OF CARE 125 MG/DL (70-110)
[2020-10-10 08:29] LABS: BASOPHILS % (AUTO) 0.7 % (0.0-2.0); EOSINOPHILS % (AUTO) 1.2 % (1.0-6.0); HEMATOCRIT 29.9 % (41-53); HEMOGLOBIN 9.8 g/dL (13.5-17.5); LYMPHOCYTES # (AUTO) 1.1 K/uL (1.0-4.8); LYMPHOCYTES % (AUTO) 8.1 % (22.0-44.0); MEAN CORPUSCULAR HEMOGLOBIN 28.4 pg (26.0-34.0); MEAN CORPUSCULAR HGB CONC 32.8 G/dL (31.0-37.0); MEAN CORPUSCULAR VOLUME 87 fL (80-100); MONOCYTES # (AUTO) 0.9 K/uL (0.1-1.0); MONOCYTES % (AUTO) 6.7 % (2.0-9.0); NEUTROPHILS # (AUTO) 11.4 K/uL (1.8-7.7); NEUTROPHILS % (AUTO) 83.3 % (40.0-70.0); PLATELET COUNT (AUTO) 366 K/uL (150-450); RED BLOOD CELL COUNT(AUTO) 3.45 MIL/uL (4.50-5.90); RED CELL DISTRIBUTION WIDTH 13.1 % (11.5-14.5)
[2020-10-10] MEDS: FAMOTIDINE 10 MG/ML 2 ML VIAL IVP SCH ×2 (08:36→21:47)
[2020-10-10] MEDS: CISATRACURIUM BESYLATE 50 MG in DEXTROSE 5%-WATER 245 ML IV PRN ×2 (08:36→16:16)
[2020-10-10] MEDS: DEXAMETHASONE SOD PHOS 4 MG/ML VIAL IVP SCH (08:36)
[2020-10-10] MEDS: LISINOPRIL 20 MG TABLET PO SCH (09:00)
[2020-10-10] MEDS: HYOSCYAMINE SULFATE 0.125 MG TAB PO SCH ×4 (09:00→21:00)
[2020-10-10] MEDS: ASPIRIN 81 MG CHEWABLE TABLET PO SCH (09:00)
[2020-10-10] MEDS: DOCUSATE SODIUM 100 MG CAPSULE PO SCH ×2 (09:00→21:00)
[2020-10-10] MEDS: CARVEDILOL 12.5 MG TABLET PO SCH ×2 (09:00→21:00)
[2020-10-10] MEDS: LORATADINE 10 MG TABLET PO SCH (09:00)
[2020-10-10] MEDS: PIOGLITAZONE HCL 30 MG TABLET PO SCH (09:00)
[2020-10-10] MEDS: FLUTICASONE PROPIONATE 50 MCG/SPRAY 16 GM NASAL SPRAY NASAL SCH (09:00)
[2020-10-10 09:24] LABS: ALANINE AMINOTRANSFERASE 55 U/L (12-78); ALKALINE PHOSPHATASE 66 U/L (46-116); ANION GAP 4 mmol/L (8-16); ASPARTATE AMINOTRANSFERASE 38 U/L (15-37); BILIRUBIN,TOTAL 0.4 mg/dL (0.1-1.0); C-REACTIVE PROTEIN QUANT 6.71 mg/dL (0.00-0.30); CALCIUM, TOTAL 8.7 mg/dL (8.8-10.5); CARBON DIOXIDE 35 mmol/L (22-29); CHLORIDE 94 mmol/L (98-107); CREATININE 0.81 mg/dL (0.60-1.30); FERRITIN 595 ng/mL (26-388); GLOMERULAR FILTR. RATE CALC > 60 mL/min (>60); GLUCOSE,RANDOM 116 mg/dL (70-110); LACTATE DEHYDROGENASE 397 U/L (85-227); POTASSIUM 4.6 mmol/L (3.5-5.1); SODIUM SERUM 133 mmol/L (136-145); TOTAL PROTEIN, SERUM 7.1 g/dL (6.4-8.2); UREA NITROGEN, BLOOD 26 mg/dL (7-18)
[2020-10-10] MEDS: ACETAMINOPHEN 650 MG RECTAL SUPPOSITORY PR PRN (09:26)
[2020-10-10] MEDS: KETAMINE HCL 500 MG in DEXTROSE 5%-WATER 490 ML IV PRN ×2 (11:08→11:30)
[2020-10-10 12:42] LABS: ABG A-A DIFF O2 498.1 mmHg (10-20.0); ABG BASE EXCESS 11.7 mmol/L (-2.0-3.0); ABG CARBOXYHEMOGLOBIN 0.8 % (0.0-1.5); ABG HCO3 31.8 mmol/L (22.0-26.0); ABG METHEMOGLOBIN 0.3 % (0.0-1.5); ABG OXYGEN CONTENT 15.3 mL/dL (15.0-23.0); ABG TOTAL HEMOGLOBIN 11.6 G/dL (12.0-18.0); SOURCE, BLOOD GAS ARTERIAL; TEMPERATURE, FAHRENHEIT, BG 99.7 FAHREN (96.0-98.6)
[2020-10-10 12:51] LABS: ABG PCO2 126 mmHg (35-45); O2 DEVICE,BLOOD GAS VENTILATOR (ROOM AIR); PEEP,BG 10 cm H2O; SITE, BLOOD GAS ARTERIAL LINE; VT, ABG 450 ml
[2020-10-10 13:57] LABS: GLUCOSE,POINT OF CARE 236 MG/DL (70-110)
[2020-10-10 14:44] LABS: ABG A-A DIFF O2 447.5 mmHg (10-20.0); ABG CARBOXYHEMOGLOBIN 1.1 % (0.0-1.5); ABG HCO3 25.9 mmol/L (22.0-26.0); ABG METHEMOGLOBIN 0.3 % (0.0-1.5); ABG OXYGEN CONTENT 15.3 mL/dL (15.0-23.0); ABG OXYGEN SATURATION 91.3 % (95.0-98.0); SOURCE, BLOOD GAS ARTERIAL; TEMPERATURE, FAHRENHEIT, BG 99.3 FAHREN (96.0-98.6)
[2020-10-10] MEDS: INSULIN LISPRO 100 UNITS/ML SQ PRN ×3 (14:54→22:15)
[2020-10-10 15:20] LABS: ABG PCO2 181 mmHg (35-45); ABG PH 6.945 (7.35-7.450); SITE, BLOOD GAS ARTERIAL LINE
[2020-10-10 15:21] LABS: O2 DEVICE,BLOOD GAS VENTILATOR (ROOM AIR); PEEP,BG 10 cm H2O; SPONTANEOUS VT, BG 465 ml; VENT MODE, BG Press. Control Vent (ROOM AIR)
[2020-10-10] MEDS ORDERED: PHENYLEPHRINE HCL IN 0.9% NACL 400 MCG/10 ML SYRINGE IVP ONE ×2 (16:19→16:39)
[2020-10-10 16:59] LABS: ABG A-A DIFF O2 508.5 mmHg (10-20.0); ABG BASE EXCESS 7.3 mmol/L (-2.0-3.0); ABG HCO3 28.1 mmol/L (22.0-26.0); ABG METHEMOGLOBIN 0.3 % (0.0-1.5); ABG OXYGEN CONTENT 15.6 mL/dL (15.0-23.0); ABG OXYGEN SATURATION 95.2 % (95.0-98.0); ABG TOTAL HEMOGLOBIN 11.7 G/dL (12.0-18.0); PO2, ARTERIAL BG 86.8 mmHg (84.0-92.0); SOURCE, BLOOD GAS ARTERIAL; TEMPERATURE, FAHRENHEIT, BG 98.4 FAHREN (96.0-98.6)
[2020-10-10 17:00] LABS: ABG PCO2 118 mmHg (35-45); ABG PH 7.111 (7.35-7.450); INSPIRATORY TIME, BG 1 SEC; O2 DEVICE,BLOOD GAS VENTILATOR (ROOM AIR); PEEP,BG 8 cm H2O; SITE, BLOOD GAS ARTERIAL LINE; VENT MODE, BG Press. Control Vent (ROOM AIR); VT, ABG 469 ml
[2020-10-10] MEDS: NOREPINEPHRINE 4 MG/D5%-WATER 250 ML IV PRN ×3 (17:25→23:33)
[2020-10-10] MEDS: DAPTOMYCIN 500 MG in SODIUM CHLORIDE 0.9% 50 ML IV SCH (17:55)
[2020-10-10] MEDS: PHENYLEPHRINE 200 MG/D5%-WATER 250 ML IV PRN (17:56)
[2020-10-10 18:14] LABS: GLUCOSE,POINT OF CARE 299 MG/DL (70-110)
[2020-10-10 20:26] LABS: ABG A-A DIFF O2 485.7 mmHg (10-20.0); ABG CARBOXYHEMOGLOBIN 0.3 % (0.0-1.5); ABG HCO3 27.9 mmol/L (22.0-26.0); ABG METHEMOGLOBIN 0.3 % (0.0-1.5); ABG OXYGEN CONTENT 16.2 mL/dL (15.0-23.0); ABG OXYGEN SATURATION 98.3 % (95.0-98.0); ABG OXYHEMOGLOBIN 97.7 % (94.0-100.0); ABG TOTAL HEMOGLOBIN 11.6 G/dL (12.0-18.0); PO2, ARTERIAL BG 138.4 mmHg (84.0-92.0); SOURCE, BLOOD GAS ARTERIAL; TEMPERATURE, FAHRENHEIT, BG 99.8 FAHREN (96.0-98.6)
[2020-10-10 20:27] LABS: ABG PCO2 87 mmHg (35-45); O2 DEVICE,BLOOD GAS VENTILATOR (ROOM AIR); SITE, BLOOD GAS ARTERIAL LINE; VENT MODE, BG Press. Control Vent (ROOM AIR)
[2020-10-10 20:28] LABS: PEEP,BG 8 cm H2O; SPONTANEOUS VT, BG 439 ml
[2020-10-10] MEDS: ATORVASTATIN CALCIUM 20 MG TABLET PO SCH (21:00)
[2020-10-10 22:43] LABS: GLUCOSE,POINT OF CARE 319 MG/DL (70-110)
[2020-10-11] VITALS (11 sets, daily range): BP systolic 124–154; BP diastolic 61–72
[2020-10-11] MEDS: PROPOFOL 1000 MG/ISO-OSM 100 ML IV PRN ×5 (00:23→22:41)
[2020-10-11 00:33] LABS: GLUCOSE,POINT OF CARE 280 MG/DL (70-110)
[2020-10-11] MEDS: ACETAMINOPHEN 650 MG RECTAL SUPPOSITORY PR PRN ×2 (01:02→14:40)
[2020-10-11] MEDS: INSULIN LISPRO 100 UNITS/ML SQ PRN ×3 (01:03→19:17)
[2020-10-11] MEDS: PANTOPRAZOLE SODIUM 80 MG in SODIUM CHLORIDE 0.9% 100 ML IV SCH ×2 (02:04→12:57)
[2020-10-11] MEDS: FENTANYL CITRATE IV PRN ×5 (02:04→23:37)
[2020-10-11] MEDS: WATER IV PRN ×5 (02:04→23:37)
[2020-10-11] MEDS: CISATRACURIUM BESYLATE 50 MG in DEXTROSE 5%-WATER 245 ML IV PRN ×3 (02:15→19:49)
[2020-10-11] MEDS: LORazepam 1 MG TABLET PO SCH ×3 (05:15→14:25)
[2020-10-11] MEDS: GEMFIBROZIL 600 MG TABLET PO SCH (06:30)
[2020-10-11] MEDS: GlipiZIDE 5 MG TABLET PO SCH (06:30)
[2020-10-11 06:41] LABS: GLUCOSE,POINT OF CARE 123 MG/DL (70-110)
[2020-10-11 09:25] LABS: D-DIMER 21.03 mg/L FEU (0.00-0.50)
[2020-10-11] MEDS: NOREPINEPHRINE 4 MG/D5%-WATER 250 ML IV PRN (09:41)
[2020-10-11 09:44] LABS: BASOPHILS % (AUTO) 0.3 % (0.0-2.0); EOSINOPHILS % (AUTO) 1.3 % (1.0-6.0); HEMATOCRIT 31.3 % (41-53); HEMOGLOBIN 10.5 g/dL (13.5-17.5); LYMPHOCYTES # (AUTO) 1.8 K/uL (1.0-4.8); LYMPHOCYTES % (AUTO) 10.9 % (22.0-44.0); MEAN CORPUSCULAR HEMOGLOBIN 28.8 pg (26.0-34.0); MEAN CORPUSCULAR HGB CONC 33.4 G/dL (31.0-37.0); MEAN CORPUSCULAR VOLUME 86 fL (80-100); MONOCYTES # (AUTO) 1.1 K/uL (0.1-1.0); NEUTROPHILS # (AUTO) 13.1 K/uL (1.8-7.7); NEUTROPHILS % (AUTO) 80.5 % (40.0-70.0); PLATELET COUNT (AUTO) 404 K/uL (150-450); RED BLOOD CELL COUNT(AUTO) 3.63 MIL/uL (4.50-5.90); RED CELL DISTRIBUTION WIDTH 13.4 % (11.5-14.5)
[2020-10-11 10:33] LABS: ALBUMIN 1.9 g/dL (3.4-5.0); BILIRUBIN,TOTAL 0.5 mg/dL (0.1-1.0); C-REACTIVE PROTEIN QUANT 16.15 mg/dL (0.00-0.30); CALCIUM, TOTAL 8.4 mg/dL (8.8-10.5); CREATININE 1.72 mg/dL (0.60-1.30); POTASSIUM 4.5 mmol/L (3.5-5.1)
[2020-10-11] MEDS: DEXAMETHASONE SOD PHOS 4 MG/ML VIAL IVP SCH (10:47)
[2020-10-11 11:54] LABS: ABG A-A DIFF O2 549.7 mmHg (10-20.0); ABG BASE EXCESS 9.7 mmol/L (-2.0-3.0); ABG CARBOXYHEMOGLOBIN 0.4 % (0.0-1.5); ABG HCO3 31.7 mmol/L (22.0-26.0); ABG METHEMOGLOBIN 0.3 % (0.0-1.5); ABG OXYGEN CONTENT 15.5 mL/dL (15.0-23.0); ABG OXYGEN SATURATION 96.9 % (95.0-98.0); ABG OXYHEMOGLOBIN 96.2 % (94.0-100.0); ABG PH 7.345 (7.35-7.450); ABG TOTAL HEMOGLOBIN 11.4 G/dL (12.0-18.0); PO2, ARTERIAL BG 94.7 mmHg (84.0-92.0); SOURCE, BLOOD GAS ARTERIAL
[2020-10-11 11:55] LABS: ABG PCO2 67 mmHg (35-45); O2 DEVICE,BLOOD GAS VENTILATOR (ROOM AIR); SITE, BLOOD GAS ARTERIAL LINE; VENT MODE, BG Press. Control Vent (ROOM AIR)
[2020-10-11 11:56] LABS: PEEP,BG 8 cm H2O; SPONTANEOUS VT, BG 498 ml
[2020-10-11] MEDS ORDERED: *CLINICAL-CEFEPIME DOSING CLINICAL ONE (13:00)
[2020-10-11] MEDS: HYOSCYAMINE SULFATE 0.125 MG TAB PO SCH ×2 (13:00→14:25)
[2020-10-11 13:56] LABS: MAGNESIUM 2.5 mg/dL (1.80-2.40); PHOSPHORUS 3.7 mg/dL (2.5-4.9)
[2020-10-11] MEDS: FAMOTIDINE 10 MG/ML 2 ML VIAL IVP SCH (14:15)
[2020-10-11] MEDS: LISINOPRIL 20 MG TABLET PO SCH (14:25)
[2020-10-11] MEDS: CARVEDILOL 12.5 MG TABLET PO SCH (14:25)
[2020-10-11] MEDS: LORATADINE 10 MG TABLET PO SCH (14:25)
[2020-10-11] MEDS: ASPIRIN 81 MG CHEWABLE TABLET PO SCH (14:25)
[2020-10-11] MEDS: DOCUSATE SODIUM 100 MG CAPSULE PO SCH (14:25)
[2020-10-11] MEDS: PIOGLITAZONE HCL 30 MG TABLET PO SCH (14:25)
[2020-10-11] MEDS: CEFEPIME HCL 2 GM in DEXTROSE 5%-WATER 50 ML IV SCH (16:02)
[2020-10-11] MEDS: PHENYLEPHRINE 200 MG/D5%-WATER 250 ML IV PRN (16:52)
[2020-10-11] MEDS: MIDAZOLAM HCL 100 MG in DEXTROSE 5%-WATER 180 ML IV PRN (18:33)
[2020-10-11] MEDS: DAPTOMYCIN 500 MG in SODIUM CHLORIDE 0.9% 50 ML IV SCH (18:34)
[2020-10-11 19:20] LABS: GLUCOSE,POINT OF CARE 232 MG/DL (70-110)
[2020-10-11] MEDS: PANTOPRAZOLE SODIUM 40 MG/VIAL IVP SCH (21:00)
[2020-10-11 22:47] LABS: ABG A-A DIFF O2 506.5 mmHg (10-20.0); ABG CARBOXYHEMOGLOBIN 0.3 % (0.0-1.5); ABG HCO3 27.6 mmol/L (22.0-26.0); ABG METHEMOGLOBIN 0.2 % (0.0-1.5); ABG OXYGEN CONTENT 16.2 mL/dL (15.0-23.0); ABG OXYGEN SATURATION 96.4 % (95.0-98.0); ABG OXYHEMOGLOBIN 95.9 % (94.0-100.0); ABG PH 7.185 (7.35-7.450); ABG TOTAL HEMOGLOBIN 11.9 G/dL (12.0-18.0); PO2, ARTERIAL BG 109.3 mmHg (84.0-92.0); SOURCE, BLOOD GAS ARTERIAL
[2020-10-11 22:48] LABS: ABG PCO2 94 mmHg (35-45); O2 DEVICE,BLOOD GAS VENTILATOR (ROOM AIR); SITE, BLOOD GAS ARTERIAL LINE; VENT MODE, BG Press. Control Vent (ROOM AIR); VT, ABG 385 ml
[2020-10-11 22:49] LABS: PEEP,BG 8 cm H2O
[2020-10-12] VITALS (7 sets, daily range): BP systolic 119–152; BP diastolic 61–72
[2020-10-12 01:09] LABS: GLUCOSE,POINT OF CARE 223 MG/DL (70-110)
[2020-10-12] MEDS: PROPOFOL 1000 MG/ISO-OSM 100 ML IV PRN ×5 (01:46→23:33)
[2020-10-12] MEDS: INSULIN LISPRO 100 UNITS/ML SQ PRN ×4 (01:54→18:12)
[2020-10-12] MEDS: CEFEPIME HCL 2 GM in DEXTROSE 5%-WATER 50 ML IV SCH ×3 (02:07→21:35)
[2020-10-12] MEDS: WATER IV PRN ×3 (04:54→23:33)
[2020-10-12] MEDS: FENTANYL CITRATE IV PRN ×3 (04:54→23:33)
[2020-10-12 06:49] LABS: GLUCOSE,POINT OF CARE 211 MG/DL (70-110)
[2020-10-12 06:52] LABS: BASOPHILS % (AUTO) 0.5 % (0.0-2.0); EOSINOPHILS % (AUTO) 0 % (1.0-6.0); HEMATOCRIT 31.8 % (41-53); HEMOGLOBIN 10.5 g/dL (13.5-17.5); LYMPHOCYTES # (AUTO) 0.9 K/uL (1.0-4.8); LYMPHOCYTES % (AUTO) 4.9 % (22.0-44.0); MEAN CORPUSCULAR HEMOGLOBIN 28.7 pg (26.0-34.0); MEAN CORPUSCULAR HGB CONC 33.1 G/dL (31.0-37.0); MEAN CORPUSCULAR VOLUME 87 fL (80-100); MONOCYTES # (AUTO) 1.1 K/uL (0.1-1.0); MONOCYTES % (AUTO) 6.5 % (2.0-9.0); NEUTROPHILS # (AUTO) 15.4 K/uL (1.8-7.7); PLATELET COUNT (AUTO) 406 K/uL (150-450); RED BLOOD CELL COUNT(AUTO) 3.66 MIL/uL (4.50-5.90); RED CELL DISTRIBUTION WIDTH 13.3 % (11.5-14.5)
[2020-10-12 06:54] LABS: NEUTROPHILS % (AUTO) 88.1 % (40.0-70.0)
[2020-10-12 07:51] LABS: D-DIMER 24.44 mg/L FEU (0.00-0.50)
[2020-10-12] MEDS: PANTOPRAZOLE SODIUM 40 MG/VIAL IVP SCH ×2 (08:23→21:34)
[2020-10-12] MEDS: DEXAMETHASONE SOD PHOS 4 MG/ML VIAL IVP SCH (08:24)
[2020-10-12 08:52] LABS: ALANINE AMINOTRANSFERASE 226 U/L (12-78); ALBUMIN 1.8 g/dL (3.4-5.0); ALKALINE PHOSPHATASE 86 U/L (46-116); ANION GAP 2 mmol/L (8-16); ASPARTATE AMINOTRANSFERASE 72 U/L (15-37); BILIRUBIN,TOTAL 0.4 mg/dL (0.1-1.0); C-REACTIVE PROTEIN QUANT 14.93 mg/dL (0.00-0.30); CALCIUM, TOTAL 8.4 mg/dL (8.8-10.5); CARBON DIOXIDE 35 mmol/L (22-29); CHLORIDE 92 mmol/L (98-107); CREATININE 1.19 mg/dL (0.60-1.30); FERRITIN 955 ng/mL (26-388); GLOMERULAR FILTR. RATE CALC > 60 mL/min (>60); GLUCOSE,RANDOM 184 mg/dL (70-110); LACTATE DEHYDROGENASE 354 U/L (85-227); POTASSIUM 5.2 mmol/L (3.5-5.1); SODIUM SERUM 129 mmol/L (136-145); TOTAL PROTEIN, SERUM 6.8 g/dL (6.4-8.2); UREA NITROGEN, BLOOD 39 mg/dL (7-18)
[2020-10-12] MEDS ORDERED: HEPARIN SODIUM,PORCINE 5,000 UNITS/ML VIAL IVP PRN (11:15)
[2020-10-12] MEDS: HEPARIN SODIUM 25000 UNITS/D5W 250 ML IV PRN (11:45)
[2020-10-12 12:34] LABS: ABG BASE EXCESS 9.8 mmol/L (-2.0-3.0); ABG METHEMOGLOBIN 0.3 % (0.0-1.5); ABG OXYGEN CONTENT 15.2 mL/dL (15.0-23.0); ABG OXYGEN SATURATION 95.6 % (95.0-98.0); ABG OXYHEMOGLOBIN 94.4 % (94.0-100.0); ABG PCO2 59 mmHg (35-45); ABG TOTAL HEMOGLOBIN 11.4 G/dL (12.0-18.0); PO2, ARTERIAL BG 85.5 mmHg (84.0-92.0); SOURCE, BLOOD GAS ARTERIAL
[2020-10-12 12:35] LABS: O2 DEVICE,BLOOD GAS VENTILATOR (ROOM AIR); SITE, BLOOD GAS RT RADIAL; VENT MODE, BG Press. Control Vent (ROOM AIR)
[2020-10-12 12:36] LABS: PEEP,BG 8 cm H2O; SPONTANEOUS VT, BG 552 ml
[2020-10-12] MEDS ORDERED: *CLINICAL-TOTAL PARENTERAL NUTRITION DOSING CLINICAL ONE (13:45)
[2020-10-12 13:54] LABS: GLUCOSE,POINT OF CARE 236 MG/DL (70-110)
[2020-10-12 13:58] LABS: APPEARANCE,URINE CLOUDY (CLEAR); BILIRUBIN,URINE NEGATIVE (NEGATIVE); GLUCOSE, URINE (UA) 250 mg/dL (NEGATIVE); KETONES,URINE NEGATIVE (NEGATIVE); LEUKOCYTE ESTERASE ,URINE NEGATIVE (NEGATIVE); NITRATE,URINE NEGATIVE (NEGATIVE); OCCULT BLOOD,URINE LARGE (NEGATIVE); PROTEIN,URINE POS 1+ (NEGATIVE); UROBILINOGEN,URINE 0.2 mg/dL (<=1.0)
[2020-10-12] MEDS ORDERED: *CLINICAL-PERIPHERAL PARENTERAL NUTRITION DOSING CLINICAL ONE (14:00)
[2020-10-12 15:05] LABS: BACTERIA,URINE Few /HPF (None Seen); URIC ACID CRYSTALS,URINE Many /LPF (None Seen); WBC,URINE 0-2 /HPF (0-5)
[2020-10-12 15:16] LABS: MAGNESIUM 2.5 mg/dL (1.80-2.40); PHOSPHORUS 2.5 mg/dL (2.5-4.9)
[2020-10-12] MEDS: DOXYCYCLINE HYCLATE 100 MG in DEXTROSE 5%-WATER 100 ML IV SCH (16:03)
[2020-10-12] MEDS: DAPTOMYCIN 500 MG in SODIUM CHLORIDE 0.9% 50 ML IV SCH (17:25)
[2020-10-12 18:20] LABS: GLUCOSE,POINT OF CARE 267 MG/DL (70-110)
[2020-10-12] MEDS: HEPARIN SODIUM,PORCINE 5,000 UNITS/ML VIAL IVP PRN (18:28)
[2020-10-12] MEDS: NOREPINEPHRINE 4 MG/D5%-WATER 250 ML IV PRN (18:44)
[2020-10-13] VITALS: BP 120/65
[2020-10-13] MEDS: INSULIN LISPRO 100 UNITS/ML SQ PRN ×4 (02:10→18:07)
[2020-10-13] MEDS: DOXYCYCLINE HYCLATE 100 MG in DEXTROSE 5%-WATER 100 ML IV SCH (02:10)
[2020-10-13 02:16] LABS: GLUCOSE,POINT OF CARE 241 MG/DL (70-110)
[2020-10-13] MEDS: PROPOFOL 1000 MG/ISO-OSM 100 ML IV PRN ×4 (03:44→19:48)
[2020-10-13 04:00] VITALS: BP 133/76
[2020-10-13] MEDS: CEFEPIME HCL 2 GM in DEXTROSE 5%-WATER 50 ML IV SCH ×3 (04:10→20:17)
[2020-10-13] MEDS: MIDAZOLAM HCL 100 MG in DEXTROSE 5%-WATER 180 ML IV PRN (05:28)
[2020-10-13] MEDS: FENTANYL CITRATE IV PRN ×3 (06:14→23:20)
[2020-10-13] MEDS: WATER IV PRN ×3 (06:14→23:20)
[2020-10-13] MEDS: NOREPINEPHRINE 4 MG/D5%-WATER 250 ML IV PRN (06:15)
[2020-10-13 06:40] LABS: GLUCOSE,POINT OF CARE 233 MG/DL (70-110)
[2020-10-13 07:25] LABS: ALBUMIN 1.8 g/dL (3.4-5.0); POTASSIUM 4.8 mmol/L (3.5-5.1); SODIUM SERUM 129 mmol/L (136-145)
[2020-10-13 07:31] LABS: CARBON DIOXIDE 34 mmol/L (22-29); CREATININE 1.07 mg/dL (0.60-1.30); GLOMERULAR FILTR. RATE CALC > 60 mL/min (>60)
[2020-10-13 08:10] LABS: ALANINE AMINOTRANSFERASE 164 U/L (12-78); ALKALINE PHOSPHATASE 75 U/L (46-116); ANION GAP 2 mmol/L (8-16); ASPARTATE AMINOTRANSFERASE 40 U/L (15-37); BILIRUBIN,TOTAL 0.4 mg/dL (0.1-1.0); C-REACTIVE PROTEIN QUANT 6.97 mg/dL (0.00-0.30); CALCIUM, TOTAL 8.4 mg/dL (8.8-10.5); CHLORIDE 93 mmol/L (98-107); FERRITIN 911 ng/mL (26-388); GLUCOSE,RANDOM 243 mg/dL (70-110); LACTATE DEHYDROGENASE 343 U/L (85-227); TOTAL PROTEIN, SERUM 6.5 g/dL (6.4-8.2); UREA NITROGEN, BLOOD 34 mg/dL (7-18)
[2020-10-13] MEDS: PANTOPRAZOLE SODIUM 40 MG/VIAL IVP SCH ×2 (08:19→20:14)
[2020-10-13] MEDS: DEXAMETHASONE SOD PHOS 4 MG/ML VIAL IVP SCH (08:19)
[2020-10-13 14:28] LABS: ABG BASE EXCESS 13.1 mmol/L (-2.0-3.0); ABG CARBOXYHEMOGLOBIN 0.1 % (0.0-1.5); ABG HCO3 33.2 mmol/L (22.0-26.0); ABG METHEMOGLOBIN 0.2 % (0.0-1.5); ABG OXYGEN CONTENT 15.6 mL/dL (15.0-23.0); ABG OXYGEN SATURATION 95.4 % (95.0-98.0); ABG OXYHEMOGLOBIN 95.1 % (94.0-100.0); ABG PCO2 117 mmHg (35-45); ABG TOTAL HEMOGLOBIN 11.6 G/dL (12.0-18.0); PO2, ARTERIAL BG 95.8 mmHg (84.0-92.0); SOURCE, BLOOD GAS ARTERIAL; TEMPERATURE, FAHRENHEIT, BG 98.6 FAHREN (96.0-98.6)
[2020-10-13 14:29] LABS: PEEP,BG 12 cm H2O; SITE, BLOOD GAS LFT RADIAL; VENT MODE, BG Press. Control Vent (ROOM AIR)
[2020-10-13 14:35] LABS: GLUCOSE,POINT OF CARE 204 MG/DL (70-110)
[2020-10-13 16:00] VITALS: BP 107/58
[2020-10-13] MEDS: DAPTOMYCIN 500 MG in SODIUM CHLORIDE 0.9% 50 ML IV SCH (17:34)
[2020-10-13] MEDS: HEPARIN SODIUM 25000 UNITS/D5W 250 ML IV PRN (17:39)
[2020-10-13] MEDS: CISATRACURIUM BESYLATE 50 MG in DEXTROSE 5%-WATER 245 ML IV PRN (17:40)
[2020-10-13 19:04] LABS: GLUCOSE,POINT OF CARE 307 MG/DL (70-110)
[2020-10-13 20:00] VITALS: BP 101/60
[2020-10-14] VITALS (17 sets, daily range): BP systolic 106–154; BP diastolic 42–80
[2020-10-14] MEDS: PROPOFOL 1000 MG/ISO-OSM 100 ML IV PRN ×5 (00:08→20:45)
[2020-10-14 00:54] LABS: GLUCOSE,POINT OF CARE 275 MG/DL (70-110)
[2020-10-14] MEDS: INSULIN LISPRO 100 UNITS/ML SQ PRN ×4 (01:03→17:48)
[2020-10-14] MEDS: NOREPINEPHRINE 4 MG/D5%-WATER 250 ML IV PRN ×2 (03:48→19:12)
[2020-10-14] MEDS: MIDAZOLAM HCL 100 MG in DEXTROSE 5%-WATER 180 ML IV PRN ×2 (03:49→17:02)
[2020-10-14] MEDS: CEFEPIME HCL 2 GM in DEXTROSE 5%-WATER 50 ML IV SCH ×3 (04:43→21:23)
[2020-10-14] MEDS: WATER IV PRN ×4 (04:55→19:12)
[2020-10-14] MEDS: FENTANYL CITRATE IV PRN ×4 (04:55→19:12)
[2020-10-14 06:41] LABS: GLUCOSE,POINT OF CARE 197 MG/DL (70-110)
[2020-10-14 06:44] LABS: BASOPHILS % (AUTO) 0.3 % (0.0-2.0); EOSINOPHILS % (AUTO) 0.3 % (1.0-6.0); HEMATOCRIT 28.2 % (41-53); HEMOGLOBIN 9.3 g/dL (13.5-17.5); LYMPHOCYTES # (AUTO) 1.2 K/uL (1.0-4.8); LYMPHOCYTES % (AUTO) 8.8 % (22.0-44.0); MEAN CORPUSCULAR HEMOGLOBIN 28.8 pg (26.0-34.0); MEAN CORPUSCULAR VOLUME 87 fL (80-100); MONOCYTES # (AUTO) 1.7 K/uL (0.1-1.0); MONOCYTES % (AUTO) 12.2 % (2.0-9.0); NEUTROPHILS % (AUTO) 78.4 % (40.0-70.0); PLATELET COUNT (AUTO) 387 K/uL (150-450); RED BLOOD CELL COUNT(AUTO) 3.23 MIL/uL (4.50-5.90); RED CELL DISTRIBUTION WIDTH 13.4 % (11.5-14.5)
[2020-10-14 07:03] LABS: ALANINE AMINOTRANSFERASE 134 U/L (12-78); ALKALINE PHOSPHATASE 80 U/L (46-116); ANION GAP 2 mmol/L (8-16); ASPARTATE AMINOTRANSFERASE 29 U/L (15-37); BILIRUBIN,TOTAL 0.4 mg/dL (0.1-1.0); CALCIUM, TOTAL 8.5 mg/dL (8.8-10.5); CARBON DIOXIDE 35 mmol/L (22-29); CHLORIDE 91 mmol/L (98-107); CREATININE 0.93 mg/dL (0.60-1.30); GLOMERULAR FILTR. RATE CALC > 60 mL/min (>60); GLUCOSE,RANDOM 211 mg/dL (70-110); POTASSIUM 5.1 mmol/L (3.5-5.1); SODIUM SERUM 128 mmol/L (136-145); TOTAL PROTEIN, SERUM 6.7 g/dL (6.4-8.2); UREA NITROGEN, BLOOD 33 mg/dL (7-18)
[2020-10-14 08:32] LABS: GLUCOSE,POINT OF CARE 196 MG/DL (70-110)
[2020-10-14] MEDS: PANTOPRAZOLE SODIUM 40 MG/VIAL IVP SCH ×2 (09:44→21:23)
[2020-10-14] MEDS: DEXAMETHASONE SOD PHOS 4 MG/ML VIAL IVP SCH (09:44)
[2020-10-14] MEDS: HEPARIN SODIUM 25000 UNITS/D5W 250 ML IV PRN (10:38)
[2020-10-14] MEDS: ACETAMINOPHEN 650 MG RECTAL SUPPOSITORY PR PRN (11:30)
[2020-10-14 12:45] LABS: ABG A-A DIFF O2 367.4 mmHg (10-20.0); ABG BASE EXCESS 11.2 mmol/L (-2.0-3.0); ABG CARBOXYHEMOGLOBIN 0.8 % (0.0-1.5); ABG HCO3 32.9 mmol/L (22.0-26.0); ABG METHEMOGLOBIN 0.3 % (0.0-1.5); ABG OXYGEN CONTENT 13.8 mL/dL (15.0-23.0); ABG OXYGEN SATURATION 88.6 % (95.0-98.0); ABG OXYHEMOGLOBIN 87.6 % (94.0-100.0); ABG PCO2 64 mmHg (35-45); ABG PH 7.376 (7.35-7.450); ABG TOTAL HEMOGLOBIN 11.2 G/dL (12.0-18.0); PO2, ARTERIAL BG 60.8 mmHg (84.0-92.0); SOURCE, BLOOD GAS ARTERIAL; TEMPERATURE, FAHRENHEIT, BG 100.9 FAHREN (96.0-98.6)
[2020-10-14 12:46] LABS: O2 DEVICE,BLOOD GAS VENTILATOR (ROOM AIR); PEEP,BG 12 cm H2O; SITE, BLOOD GAS ARTERIAL LINE; SPONTANEOUS VT, BG 481 ml; VENT MODE, BG Press. Control Vent (ROOM AIR)
[2020-10-14 14:00] LABS: GLUCOSE,POINT OF CARE 228 MG/DL (70-110)
[2020-10-14] MEDS ORDERED: AZITHROMYCIN 500 MG/NS 250 ML IV SCH (14:15)
[2020-10-14] MEDS: LEVOFLOXACIN 750 MG/D5% WATER 150 ML IV SCH (15:17)
[2020-10-14] MEDS: DAPTOMYCIN 500 MG in SODIUM CHLORIDE 0.9% 50 ML IV SCH (18:21)
[2020-10-14 19:27] LABS: GLUCOSE,POINT OF CARE 278 MG/DL (70-110)
[2020-10-14] MEDS: HEPARIN SODIUM,PORCINE 5,000 UNITS/ML VIAL IVP PRN (19:49)
[2020-10-15] VITALS (7 sets, daily range): BP systolic 112–157; BP diastolic 56–75
[2020-10-15] MEDS: WATER IV PRN ×5 (00:24→21:33)
[2020-10-15] MEDS: FENTANYL CITRATE IV PRN ×5 (00:24→21:33)
[2020-10-15] MEDS: INSULIN LISPRO 100 UNITS/ML SQ PRN ×4 (00:25→18:33)
[2020-10-15] MEDS: PROPOFOL 1000 MG/ISO-OSM 100 ML IV PRN ×6 (00:52→20:56)
[2020-10-15 01:54] LABS: GLUCOSE,POINT OF CARE 231 MG/DL (70-110)
[2020-10-15] MEDS: CEFEPIME HCL 2 GM in DEXTROSE 5%-WATER 50 ML IV SCH ×3 (05:05→21:49)
[2020-10-15] MEDS: MIDAZOLAM HCL 100 MG in DEXTROSE 5%-WATER 180 ML IV PRN ×2 (05:07→18:10)
[2020-10-15 06:31] LABS: GLUCOSE,POINT OF CARE 185 MG/DL (70-110)
[2020-10-15] MEDS: ACETAMINOPHEN 650 MG RECTAL SUPPOSITORY PR PRN (07:38)
[2020-10-15] MEDS: PANTOPRAZOLE SODIUM 40 MG/VIAL IVP SCH ×2 (09:24→21:49)
[2020-10-15] MEDS: DEXAMETHASONE SOD PHOS 4 MG/ML VIAL IVP SCH (09:26)
[2020-10-15 12:35] LABS: BASOPHILS % (AUTO) 0.2 % (0.0-2.0); EOSINOPHILS % (AUTO) 0.5 % (1.0-6.0); HEMATOCRIT 30.5 % (41-53); HEMOGLOBIN 9.8 g/dL (13.5-17.5); LYMPHOCYTES # (AUTO) 0.7 K/uL (1.0-4.8); LYMPHOCYTES % (AUTO) 3.7 % (22.0-44.0); MEAN CORPUSCULAR HEMOGLOBIN 28.4 pg (26.0-34.0); MEAN CORPUSCULAR HGB CONC 32.1 G/dL (31.0-37.0); MEAN CORPUSCULAR VOLUME 89 fL (80-100); MONOCYTES # (AUTO) 1.2 K/uL (0.1-1.0); MONOCYTES % (AUTO) 6.2 % (2.0-9.0); NEUTROPHILS # (AUTO) 17.3 K/uL (1.8-7.7); PLATELET COUNT (AUTO) 317 K/uL (150-450); RED BLOOD CELL COUNT(AUTO) 3.44 MIL/uL (4.50-5.90); RED CELL DISTRIBUTION WIDTH 14.3 % (11.5-14.5)
[2020-10-15 12:40] LABS: NEUTROPHILS % (AUTO) 89.4 % (40.0-70.0)
[2020-10-15 12:53] LABS: GLUCOSE,POINT OF CARE 267 MG/DL (70-110)
[2020-10-15 12:57] LABS: ALANINE AMINOTRANSFERASE 90 U/L (12-78); ALKALINE PHOSPHATASE 80 U/L (46-116); ANION GAP 3 mmol/L (8-16); ASPARTATE AMINOTRANSFERASE 26 U/L (15-37); BILIRUBIN,TOTAL 0.5 mg/dL (0.1-1.0); C-REACTIVE PROTEIN QUANT 9.72 mg/dL (0.00-0.30); CALCIUM, TOTAL 8.4 mg/dL (8.8-10.5); CARBON DIOXIDE 35 mmol/L (22-29); CHLORIDE 90 mmol/L (98-107); CREATININE 0.97 mg/dL (0.60-1.30); FERRITIN 825 ng/mL (26-388); GLOMERULAR FILTR. RATE CALC > 60 mL/min (>60); GLUCOSE,RANDOM 279 mg/dL (70-110); LACTATE DEHYDROGENASE 370 U/L (85-227); POTASSIUM 5.4 mmol/L (3.5-5.1); SODIUM SERUM 128 mmol/L (136-145); UREA NITROGEN, BLOOD 31 mg/dL (7-18)
[2020-10-15] MEDS: HEPARIN SODIUM 25000 UNITS/D5W 250 ML IV PRN (13:22)
[2020-10-15] MEDS: CISATRACURIUM BESYLATE 50 MG in DEXTROSE 5%-WATER 245 ML IV PRN ×2 (15:57→23:12)
[2020-10-15 16:27] LABS: ABG A-A DIFF O2 282.7 mmHg (10-20.0); ABG BASE EXCESS 7.1 mmol/L (-2.0-3.0); ABG CARBOXYHEMOGLOBIN 0.9 % (0.0-1.5); ABG HCO3 29.5 mmol/L (22.0-26.0); ABG METHEMOGLOBIN 0.3 % (0.0-1.5); ABG OXYGEN CONTENT 13.4 mL/dL (15.0-23.0); ABG OXYGEN SATURATION 92.3 % (95.0-98.0); ABG OXYHEMOGLOBIN 91.2 % (94.0-100.0); ABG PH 7.314 (7.35-7.450); ABG TOTAL HEMOGLOBIN 10.4 G/dL (12.0-18.0); PO2, ARTERIAL BG 70.7 mmHg (84.0-92.0); SOURCE, BLOOD GAS ARTERIAL; TEMPERATURE, FAHRENHEIT, BG 99.1 FAHREN (96.0-98.6)
[2020-10-15 16:28] LABS: ABG PCO2 67 mmHg (35-45); O2 DEVICE,BLOOD GAS VENTILATOR (ROOM AIR); PEEP,BG 12 cm H2O; SITE, BLOOD GAS LFT RADIAL; SPONTANEOUS VT, BG 456 ml; VENT MODE, BG Press. Control Vent (ROOM AIR)
[2020-10-15] MEDS: LEVOFLOXACIN 750 MG/D5% WATER 150 ML IV SCH (16:28)
[2020-10-15] MEDS: DAPTOMYCIN 500 MG in SODIUM CHLORIDE 0.9% 50 ML IV SCH (18:09)
[2020-10-15 18:41] LABS: GLUCOSE,POINT OF CARE 299 MG/DL (70-110)
[2020-10-16] VITALS (10 sets, daily range): BP systolic 105–128; BP diastolic 61–69
[2020-10-16] MEDS: PROPOFOL 1000 MG/ISO-OSM 100 ML IV PRN ×5 (01:07→16:31)
[2020-10-16] MEDS: FENTANYL CITRATE IV PRN ×4 (01:48→23:13)
[2020-10-16] MEDS: WATER IV PRN ×4 (01:48→23:13)
[2020-10-16] MEDS: INSULIN LISPRO 100 UNITS/ML SQ PRN ×3 (01:49→18:19)
[2020-10-16 02:16] LABS: GLUCOSE,POINT OF CARE 231 MG/DL (70-110)
[2020-10-16] MEDS: CEFEPIME HCL 2 GM in DEXTROSE 5%-WATER 50 ML IV SCH ×3 (04:29→20:36)
[2020-10-16 05:33] LABS: BASOPHILS % (AUTO) 0.4 % (0.0-2.0); EOSINOPHILS % (AUTO) 0.4 % (1.0-6.0); HEMATOCRIT 28.1 % (41-53); HEMOGLOBIN 9.3 g/dL (13.5-17.5); LYMPHOCYTES # (AUTO) 1.3 K/uL (1.0-4.8); LYMPHOCYTES % (AUTO) 6.9 % (22.0-44.0); MEAN CORPUSCULAR HEMOGLOBIN 28.7 pg (26.0-34.0); MEAN CORPUSCULAR HGB CONC 32.9 G/dL (31.0-37.0); MEAN CORPUSCULAR VOLUME 87 fL (80-100); MONOCYTES # (AUTO) 1.3 K/uL (0.1-1.0); MONOCYTES % (AUTO) 6.9 % (2.0-9.0); NEUTROPHILS # (AUTO) 16.2 K/uL (1.8-7.7); PLATELET COUNT (AUTO) 289 K/uL (150-450); RED BLOOD CELL COUNT(AUTO) 3.22 MIL/uL (4.50-5.90); RED CELL DISTRIBUTION WIDTH 13.5 % (11.5-14.5)
[2020-10-16] MEDS: CISATRACURIUM BESYLATE 50 MG in DEXTROSE 5%-WATER 245 ML IV PRN ×4 (05:40→23:49)
[2020-10-16 05:43] LABS: NEUTROPHILS % (AUTO) 85.4 % (40.0-70.0)
[2020-10-16 05:51] LABS: ALANINE AMINOTRANSFERASE 69 U/L (12-78); ALBUMIN 1.9 g/dL (3.4-5.0); ALKALINE PHOSPHATASE 72 U/L (46-116); ANION GAP 4 mmol/L (8-16); ASPARTATE AMINOTRANSFERASE 19 U/L (15-37); BILIRUBIN,TOTAL 0.4 mg/dL (0.1-1.0); CALCIUM, TOTAL 8.4 mg/dL (8.8-10.5); CARBON DIOXIDE 33 mmol/L (22-29); CHLORIDE 89 mmol/L (98-107); CREATININE 0.82 mg/dL (0.60-1.30); GLOMERULAR FILTR. RATE CALC > 60 mL/min (>60); GLUCOSE,RANDOM 248 mg/dL (70-110); SODIUM SERUM 126 mmol/L (136-145); TOTAL PROTEIN, SERUM 6.8 g/dL (6.4-8.2); UREA NITROGEN, BLOOD 29 mg/dL (7-18)
[2020-10-16] MEDS ORDERED: MIDAZOLAM HCL 5 MG/ML VIAL ONE (08:14)
[2020-10-16] MEDS: MIDAZOLAM HCL 100 MG in DEXTROSE 5%-WATER 180 ML IV PRN ×2 (09:19→21:51)
[2020-10-16] MEDS: PANTOPRAZOLE SODIUM 40 MG/VIAL IVP SCH ×2 (09:20→21:03)
[2020-10-16] MEDS: DEXAMETHASONE SOD PHOS 4 MG/ML VIAL IVP SCH (09:21)
[2020-10-16 11:46] LABS: GLUCOSE,POINT OF CARE 316 MG/DL (70-110)
[2020-10-16] MEDS: HEPARIN SODIUM 25000 UNITS/D5W 250 ML IV PRN (12:43)
[2020-10-16] MEDS: LEVOFLOXACIN 750 MG/D5% WATER 150 ML IV SCH (15:27)
[2020-10-16] MEDS: DAPTOMYCIN 500 MG in SODIUM CHLORIDE 0.9% 50 ML IV SCH (18:18)
[2020-10-16 18:24] LABS: GLUCOSE,POINT OF CARE 337 MG/DL (70-110)
[2020-10-16 19:11] LABS: SOURCE, BLOOD GAS ARTERIAL; TEMPERATURE, FAHRENHEIT, BG 98.6 FAHREN (96.0-98.6)
[2020-10-16 19:17] LABS: ABG A-A DIFF O2 433.3 mmHg (10-20.0); ABG BASE EXCESS 9.3 mmol/L (-2.0-3.0); ABG CARBOXYHEMOGLOBIN 0.7 % (0.0-1.5); ABG HCO3 31.6 mmol/L (22.0-26.0); ABG METHEMOGLOBIN 0.3 % (0.0-1.5); ABG OXYGEN CONTENT 14.1 mL/dL (15.0-23.0); ABG PCO2 64 mmHg (35-45); ABG PH 7.355 (7.35-7.450)
[2020-10-16 19:18] LABS: O2 DEVICE,BLOOD GAS VENTILATOR (ROOM AIR); PEEP,BG 12 cm H2O; SITE, BLOOD GAS RA; VT, ABG 420 ml
[2020-10-16 20:07] LABS: GLUCOSE,POINT OF CARE 301 MG/DL (70-110)
[2020-10-17] VITALS (27 sets, daily range): BP systolic 108–157; BP diastolic 54–83
[2020-10-17] MEDS: PROPOFOL 1000 MG/ISO-OSM 100 ML IV PRN ×5 (00:44→20:32)
[2020-10-17 01:29] LABS: GLUCOSE,POINT OF CARE 291 MG/DL (70-110)
[2020-10-17] MEDS: INSULIN LISPRO 100 UNITS/ML SQ PRN ×4 (02:29→18:29)
[2020-10-17] MEDS: WATER IV PRN ×4 (04:17→19:08)
[2020-10-17] MEDS: FENTANYL CITRATE IV PRN ×4 (04:17→19:08)
[2020-10-17] MEDS: CISATRACURIUM BESYLATE 50 MG in DEXTROSE 5%-WATER 245 ML IV PRN ×4 (04:23→20:06)
[2020-10-17] MEDS: CEFEPIME HCL 2 GM in DEXTROSE 5%-WATER 50 ML IV SCH ×3 (04:50→20:24)
[2020-10-17 06:50] LABS: GLUCOSE,POINT OF CARE 303 MG/DL (70-110)
[2020-10-17] MEDS: HEPARIN SODIUM 25000 UNITS/D5W 250 ML IV PRN ×2 (07:45→09:22)
[2020-10-17 08:13] LABS: BASOPHILS % (AUTO) 0.4 % (0.0-2.0); EOSINOPHILS % (AUTO) 0.2 % (1.0-6.0); HEMATOCRIT 27.8 % (41-53); HEMOGLOBIN 9.1 g/dL (13.5-17.5); LYMPHOCYTES # (AUTO) 1.2 K/uL (1.0-4.8); LYMPHOCYTES % (AUTO) 6.1 % (22.0-44.0); MEAN CORPUSCULAR HGB CONC 32.9 G/dL (31.0-37.0); MEAN CORPUSCULAR VOLUME 88 fL (80-100); MONOCYTES # (AUTO) 1.4 K/uL (0.1-1.0); MONOCYTES % (AUTO) 7.1 % (2.0-9.0); NEUTROPHILS # (AUTO) 16.5 K/uL (1.8-7.7); PLATELET COUNT (AUTO) 297 K/uL (150-450); RED BLOOD CELL COUNT(AUTO) 3.15 MIL/uL (4.50-5.90)
[2020-10-17 08:20] LABS: NEUTROPHILS % (AUTO) 86.2 % (40.0-70.0)
[2020-10-17 08:28] LABS: ALANINE AMINOTRANSFERASE 50 U/L (12-78); ALBUMIN 1.8 g/dL (3.4-5.0); ALKALINE PHOSPHATASE 67 U/L (46-116); ANION GAP 3 mmol/L (8-16); ASPARTATE AMINOTRANSFERASE 17 U/L (15-37); BILIRUBIN,TOTAL 0.3 mg/dL (0.1-1.0); CALCIUM, TOTAL 8.6 mg/dL (8.8-10.5); CARBON DIOXIDE 34 mmol/L (22-29); CHLORIDE 90 mmol/L (98-107); CREATININE 0.85 mg/dL (0.60-1.30); GLOMERULAR FILTR. RATE CALC > 60 mL/min (>60); GLUCOSE,RANDOM 287 mg/dL (70-110); SODIUM SERUM 127 mmol/L (136-145); TOTAL PROTEIN, SERUM 6.8 g/dL (6.4-8.2); UREA NITROGEN, BLOOD 25 mg/dL (7-18)
[2020-10-17] MEDS: PANTOPRAZOLE SODIUM 40 MG/VIAL IVP SCH ×2 (08:34→20:33)
[2020-10-17] MEDS: DEXAMETHASONE SOD PHOS 4 MG/ML VIAL IVP SCH (08:34)
[2020-10-17] MEDS: MIDAZOLAM HCL 100 MG in DEXTROSE 5%-WATER 180 ML IV PRN ×2 (08:49→20:24)
[2020-10-17] MEDS: LEVOFLOXACIN 750 MG/D5% WATER 150 ML IV SCH (15:40)
[2020-10-17] MEDS: DAPTOMYCIN 500 MG in SODIUM CHLORIDE 0.9% 50 ML IV SCH (18:12)
[2020-10-17 18:34] LABS: GLUCOSE,POINT OF CARE 361 MG/DL (70-110)
[2020-10-17 18:47] LABS: GLUCOSE,POINT OF CARE 339 MG/DL (70-110)
[2020-10-17] MEDS ORDERED: CISATRACURIUM BESYLATE 100 MG in DEXTROSE 5%-WATER 240 ML IV PRN (23:45)
[2020-10-18] VITALS (22 sets, daily range): BP systolic 112–149; BP diastolic 67–89
[2020-10-18] MEDS: FENTANYL CITRATE IV PRN ×7 (00:18→23:37)
[2020-10-18] MEDS: WATER IV PRN ×7 (00:18→23:37)
[2020-10-18] MEDS: PROPOFOL 1000 MG/ISO-OSM 100 ML IV PRN ×6 (00:22→21:57)
[2020-10-18] MEDS: INSULIN LISPRO 100 UNITS/ML SQ PRN ×4 (01:18→17:50)
[2020-10-18 01:48] LABS: GLUCOSE,POINT OF CARE 277 MG/DL (70-110)
[2020-10-18] MEDS: CEFEPIME HCL 2 GM in DEXTROSE 5%-WATER 50 ML IV SCH ×3 (05:09→22:18)
[2020-10-18] MEDS: CISATRACURIUM BESYLATE 50 MG in DEXTROSE 5%-WATER 245 ML IV PRN ×4 (05:10→21:55)
[2020-10-18] MEDS: HEPARIN SODIUM 25000 UNITS/D5W 250 ML IV PRN (05:17)
[2020-10-18 06:50] LABS: GLUCOSE,POINT OF CARE 286 MG/DL (70-110)
[2020-10-18 07:07] LABS: BASOPHILS % (AUTO) 0.5 % (0.0-2.0); EOSINOPHILS % (AUTO) 0.4 % (1.0-6.0); HEMATOCRIT 29.7 % (41-53); HEMOGLOBIN 9.7 g/dL (13.5-17.5); LYMPHOCYTES # (AUTO) 1.5 K/uL (1.0-4.8); LYMPHOCYTES % (AUTO) 7.3 % (22.0-44.0); MEAN CORPUSCULAR HGB CONC 32.7 G/dL (31.0-37.0); MEAN CORPUSCULAR VOLUME 89 fL (80-100); MONOCYTES # (AUTO) 1.4 K/uL (0.1-1.0); NEUTROPHILS % (AUTO) 84.8 % (40.0-70.0); PLATELET COUNT (AUTO) 354 K/uL (150-450); RED BLOOD CELL COUNT(AUTO) 3.35 MIL/uL (4.50-5.90); RED CELL DISTRIBUTION WIDTH 14.2 % (11.5-14.5)
[2020-10-18 07:26] LABS: D-DIMER 9.68 mg/L FEU (0.00-0.50)
[2020-10-18 07:38] LABS: ALANINE AMINOTRANSFERASE 44 U/L (12-78); ALBUMIN 1.9 g/dL (3.4-5.0); ALKALINE PHOSPHATASE 70 U/L (46-116); ANION GAP 3 mmol/L (8-16); ASPARTATE AMINOTRANSFERASE 17 U/L (15-37); BILIRUBIN,TOTAL 0.4 mg/dL (0.1-1.0); CALCIUM, TOTAL 8.7 mg/dL (8.8-10.5); CARBON DIOXIDE 36 mmol/L (22-29); CHLORIDE 86 mmol/L (98-107); CREATININE 0.83 mg/dL (0.60-1.30); GLOMERULAR FILTR. RATE CALC > 60 mL/min (>60); GLUCOSE,RANDOM 285 mg/dL (70-110); POTASSIUM 5.1 mmol/L (3.5-5.1); SODIUM SERUM 125 mmol/L (136-145); TOTAL PROTEIN, SERUM 7.2 g/dL (6.4-8.2); UREA NITROGEN, BLOOD 24 mg/dL (7-18)
[2020-10-18] MEDS: PANTOPRAZOLE SODIUM 40 MG/VIAL IVP SCH ×2 (08:25→21:16)
[2020-10-18] MEDS: DEXAMETHASONE SOD PHOS 4 MG/ML VIAL IVP SCH (08:26)
[2020-10-18] MEDS: MIDAZOLAM HCL 100 MG in DEXTROSE 5%-WATER 180 ML IV PRN ×2 (09:20→21:15)
[2020-10-18 10:50] LABS: CREATINE KINASE, TOTAL ONLY 137 U/L (39-308); FERRITIN 821 ng/mL (26-388); LACTATE DEHYDROGENASE 395 U/L (85-227)
[2020-10-18] MEDS: HEPARIN SODIUM,PORCINE 5,000 UNITS/ML VIAL IVP PRN (12:58)
[2020-10-18] MEDS: LEVOFLOXACIN 750 MG/D5% WATER 150 ML IV SCH (13:12)
[2020-10-18 13:52] LABS: GLUCOSE,POINT OF CARE 329 MG/DL (70-110)
[2020-10-18] MEDS ORDERED: HEPARIN SODIUM,PORCINE 5,000 UNITS/ML VIAL IVP PRN (15:45)
[2020-10-18] MEDS: DAPTOMYCIN 500 MG in SODIUM CHLORIDE 0.9% 50 ML IV SCH (17:30)
[2020-10-18 18:26] LABS: GLUCOSE,POINT OF CARE 340 MG/DL (70-110)
[2020-10-18] MEDS: INSULIN GLARGINE,HUM.REC.ANLOG 100 UNITS/ML SQ SCH (21:48)
[2020-10-18 22:52] LABS: GLUCOSE,POINT OF CARE 259 MG/DL (70-110)
[2020-10-19] VITALS (20 sets, daily range): BP systolic 98–132; BP diastolic 57–82
[2020-10-19] MEDS: INSULIN LISPRO 100 UNITS/ML SQ PRN ×4 (00:07→18:10)
[2020-10-19] MEDS: CISATRACURIUM BESYLATE 50 MG in DEXTROSE 5%-WATER 245 ML IV PRN ×3 (02:01→20:19)
[2020-10-19] MEDS: PROPOFOL 1000 MG/ISO-OSM 100 ML IV PRN ×5 (02:07→22:25)
[2020-10-19 04:11] LABS: GLUCOSE,POINT OF CARE 238 MG/DL (70-110)
[2020-10-19] MEDS: WATER IV PRN ×2 (04:58→20:19)
[2020-10-19] MEDS: FENTANYL CITRATE IV PRN ×2 (04:58→20:19)
[2020-10-19] MEDS: CEFEPIME HCL 2 GM in DEXTROSE 5%-WATER 50 ML IV SCH ×3 (05:41→21:05)
[2020-10-19] MEDS: HEPARIN SODIUM 25000 UNITS/D5W 250 ML IV PRN (06:09)
[2020-10-19 06:44] LABS: BASOPHILS % (AUTO) 0.2 % (0.0-2.0); EOSINOPHILS % (AUTO) 0.8 % (1.0-6.0); HEMATOCRIT 29.2 % (41-53); HEMOGLOBIN 9.4 g/dL (13.5-17.5); LYMPHOCYTES # (AUTO) 1.5 K/uL (1.0-4.8); LYMPHOCYTES % (AUTO) 9.2 % (22.0-44.0); MEAN CORPUSCULAR HEMOGLOBIN 28.4 pg (26.0-34.0); MEAN CORPUSCULAR HGB CONC 32.3 G/dL (31.0-37.0); MEAN CORPUSCULAR VOLUME 88 fL (80-100); MONOCYTES # (AUTO) 1.2 K/uL (0.1-1.0); MONOCYTES % (AUTO) 7.3 % (2.0-9.0); NEUTROPHILS # (AUTO) 13.4 K/uL (1.8-7.7); NEUTROPHILS % (AUTO) 82.5 % (40.0-70.0); PLATELET COUNT (AUTO) 314 K/uL (150-450); RED BLOOD CELL COUNT(AUTO) 3.32 MIL/uL (4.50-5.90)
[2020-10-19 07:04] LABS: ALANINE AMINOTRANSFERASE 39 U/L (12-78); ALBUMIN 1.9 g/dL (3.4-5.0); ALKALINE PHOSPHATASE 71 U/L (46-116); ANION GAP -1 mmol/L (8-16); ASPARTATE AMINOTRANSFERASE 17 U/L (15-37); BILIRUBIN,TOTAL 0.4 mg/dL (0.1-1.0); CALCIUM, TOTAL 8.6 mg/dL (8.8-10.5); CARBON DIOXIDE 40 mmol/L (22-29); CHLORIDE 87 mmol/L (98-107); CREATININE 0.77 mg/dL (0.60-1.30); GLOMERULAR FILTR. RATE CALC > 60 mL/min (>60); GLUCOSE,RANDOM 263 mg/dL (70-110); POTASSIUM 4.1 mmol/L (3.5-5.1); SODIUM SERUM 126 mmol/L (136-145); TOTAL PROTEIN, SERUM 6.7 g/dL (6.4-8.2); UREA NITROGEN, BLOOD 21 mg/dL (7-18)
[2020-10-19 07:35] LABS: GLUCOSE,POINT OF CARE 242 MG/DL (70-110)
[2020-10-19] MEDS: INSULIN GLARGINE,HUM.REC.ANLOG 100 UNITS/ML SQ SCH ×2 (09:28→21:08)
[2020-10-19] MEDS: DEXAMETHASONE SOD PHOS 4 MG/ML VIAL IVP SCH (09:36)
[2020-10-19] MEDS: PANTOPRAZOLE SODIUM 40 MG/VIAL IVP SCH ×2 (09:37→21:05)
[2020-10-19 13:16] LABS: GLUCOSE,POINT OF CARE 292 MG/DL (70-110)
[2020-10-19] MEDS: LEVOFLOXACIN 750 MG/D5% WATER 150 ML IV SCH (16:58)
[2020-10-19 17:08] LABS: ABG A-A DIFF O2 352.7 mmHg (10-20.0); ABG BASE EXCESS 14.3 mmol/L (-2.0-3.0); ABG CARBOXYHEMOGLOBIN 1.4 % (0.0-1.5); ABG HCO3 35.7 mmol/L (22.0-26.0); ABG METHEMOGLOBIN 0.3 % (0.0-1.5); ABG OXYGEN CONTENT 13.3 mL/dL (15.0-23.0); ABG OXYHEMOGLOBIN 91.4 % (94.0-100.0); ABG PH 7.368 (7.35-7.450); ABG TOTAL HEMOGLOBIN 10.3 G/dL (12.0-18.0); PO2, ARTERIAL BG 69.5 mmHg (84.0-92.0); SOURCE, BLOOD GAS ARTERIAL; TEMPERATURE, FAHRENHEIT, BG 99.5 FAHREN (96.0-98.6)
[2020-10-19 17:11] LABS: ABG PCO2 71 mmHg (35-45); O2 DEVICE,BLOOD GAS VENTILATOR (ROOM AIR); PEEP,BG 12 cm H2O; SITE, BLOOD GAS LFT RADIAL; VT, ABG 420 ml
[2020-10-19] MEDS: DAPTOMYCIN 500 MG in SODIUM CHLORIDE 0.9% 50 ML IV SCH (17:12)
[2020-10-19] MEDS ORDERED: BACITRACIN 0.9 GM PACKET OINTMENT TP ONE (18:30)
[2020-10-19 19:17] LABS: GLUCOSE,POINT OF CARE 336 MG/DL (70-110)
[2020-10-19 21:29] LABS: GLUCOSE,POINT OF CARE 292 MG/DL (70-110)
[2020-10-19] MEDS: MIDAZOLAM HCL 100 MG in DEXTROSE 5%-WATER 180 ML IV PRN (23:20)
[2020-10-20] VITALS (17 sets, daily range): BP systolic 92–148; BP diastolic 45–75
[2020-10-20] MEDS: INSULIN LISPRO 100 UNITS/ML SQ PRN ×4 (00:14→18:23)
[2020-10-20] MEDS: CISATRACURIUM BESYLATE 50 MG in DEXTROSE 5%-WATER 245 ML IV PRN ×6 (00:29→23:39)
[2020-10-20] MEDS: WATER IV PRN ×4 (01:54→19:41)
[2020-10-20] MEDS: FENTANYL CITRATE IV PRN ×4 (01:54→19:41)
[2020-10-20] MEDS: PROPOFOL 1000 MG/ISO-OSM 100 ML IV PRN ×5 (03:21→21:13)
[2020-10-20] MEDS: ENOXAPARIN SODIUM 80 MG/0.8 ML PF SYRINGE SQ SCH ×2 (04:09→14:35)
[2020-10-20] MEDS: CEFEPIME HCL 2 GM in DEXTROSE 5%-WATER 50 ML IV SCH ×3 (05:59→21:06)
[2020-10-20] MEDS: ACETAMINOPHEN 650 MG RECTAL SUPPOSITORY PR PRN (06:15)
[2020-10-20 08:31] LABS: BASOPHILS % (AUTO) 0.2 % (0.0-2.0); EOSINOPHILS % (AUTO) 0.8 % (1.0-6.0); HEMATOCRIT 27.7 % (41-53); HEMOGLOBIN 8.9 g/dL (13.5-17.5); LYMPHOCYTES # (AUTO) 1.2 K/uL (1.0-4.8); LYMPHOCYTES % (AUTO) 8.9 % (22.0-44.0); MEAN CORPUSCULAR HEMOGLOBIN 28.5 pg (26.0-34.0); MEAN CORPUSCULAR HGB CONC 32.2 G/dL (31.0-37.0); MEAN CORPUSCULAR VOLUME 89 fL (80-100); MONOCYTES % (AUTO) 6.9 % (2.0-9.0); NEUTROPHILS # (AUTO) 11.6 K/uL (1.8-7.7); NEUTROPHILS % (AUTO) 83.2 % (40.0-70.0); PLATELET COUNT (AUTO) 282 K/uL (150-450); RED BLOOD CELL COUNT(AUTO) 3.13 MIL/uL (4.50-5.90); RED CELL DISTRIBUTION WIDTH 14.4 % (11.5-14.5)
[2020-10-20 08:43] LABS: ALANINE AMINOTRANSFERASE 34 U/L (12-78); ALBUMIN 1.9 g/dL (3.4-5.0); ALKALINE PHOSPHATASE 66 U/L (46-116); ANION GAP 0 mmol/L (8-16); ASPARTATE AMINOTRANSFERASE 18 U/L (15-37); BILIRUBIN,TOTAL 0.4 mg/dL (0.1-1.0); C-REACTIVE PROTEIN QUANT 8.09 mg/dL (0.00-0.30); CALCIUM, TOTAL 8.4 mg/dL (8.8-10.5); CARBON DIOXIDE 40 mmol/L (22-29); CHLORIDE 83 mmol/L (98-107); CREATININE 0.89 mg/dL (0.60-1.30); GLOMERULAR FILTR. RATE CALC > 60 mL/min (>60); GLUCOSE,RANDOM 338 mg/dL (70-110); PHOSPHORUS 3.5 mg/dL (2.5-4.9); POTASSIUM 3.9 mmol/L (3.5-5.1); TOTAL PROTEIN, SERUM 6.6 g/dL (6.4-8.2); UREA NITROGEN, BLOOD 22 mg/dL (7-18)
[2020-10-20 08:49] LABS: D-DIMER 10.57 mg/L FEU (0.00-0.50); INR 1.1 (0.9-1.1); PROTHROMBIN TIME 11.5 SEC (9.4-11.6)
[2020-10-20 08:52] LABS: SODIUM SERUM 123 mmol/L (136-145)
[2020-10-20] MEDS: DEXAMETHASONE SOD PHOS 4 MG/ML VIAL IVP SCH (09:15)
[2020-10-20] MEDS: PANTOPRAZOLE SODIUM 40 MG/VIAL IVP SCH ×2 (09:15→20:49)
[2020-10-20] MEDS: INSULIN GLARGINE,HUM.REC.ANLOG 100 UNITS/ML SQ SCH ×2 (10:10→20:51)
[2020-10-20] MEDS: NOREPINEPHRINE 4 MG/D5%-WATER 250 ML IV PRN (10:50)
[2020-10-20 11:46] LABS: GLUCOSE,POINT OF CARE 314 MG/DL (70-110)
[2020-10-20] MEDS ORDERED: TOLVAPTAN 15 MG TABLET NG ONE (12:30)
[2020-10-20 13:18] LABS: ABG A-A DIFF O2 349.6 mmHg (10-20.0); ABG BASE EXCESS 16.7 mmol/L (-2.0-3.0); ABG HCO3 37.5 mmol/L (22.0-26.0); ABG METHEMOGLOBIN 0.2 % (0.0-1.5); ABG OXYGEN CONTENT 14.2 mL/dL (15.0-23.0); ABG OXYGEN SATURATION 92.8 % (95.0-98.0); ABG OXYHEMOGLOBIN 91.7 % (94.0-100.0); ABG PH 7.354 (7.35-7.450); PO2, ARTERIAL BG 66.6 mmHg (84.0-92.0); SOURCE, BLOOD GAS ARTERIAL; TEMPERATURE, FAHRENHEIT, BG 98.3 FAHREN (96.0-98.6)
[2020-10-20 13:19] LABS: ABG PCO2 78 mmHg (35-45); O2 DEVICE,BLOOD GAS VENTILATOR (ROOM AIR); PEEP,BG 12 cm H2O; SITE, BLOOD GAS RT RADIAL; VT, ABG 420 ml
[2020-10-20] MEDS: MIDAZOLAM HCL 100 MG in DEXTROSE 5%-WATER 180 ML IV PRN (13:20)
[2020-10-20] MEDS: LEVOFLOXACIN 750 MG/D5% WATER 150 ML IV SCH (17:18)
[2020-10-20 18:06] LABS: GLUCOSE,POINT OF CARE 369 MG/DL (70-110)
[2020-10-20] MEDS: DAPTOMYCIN 500 MG in SODIUM CHLORIDE 0.9% 50 ML IV SCH (18:22)
[2020-10-20 21:12] LABS: GLUCOSE,POINT OF CARE 310 MG/DL (70-110)
[2020-10-21] VITALS (17 sets, daily range): BP systolic 98–135; BP diastolic 58–80
[2020-10-21] MEDS: INSULIN LISPRO 100 UNITS/ML SQ PRN ×3 (00:40→18:28)
[2020-10-21] MEDS: PROPOFOL 1000 MG/ISO-OSM 100 ML IV PRN ×6 (01:10→21:24)
[2020-10-21 01:37] LABS: GLUCOSE,POINT OF CARE 268 MG/DL (70-110)
[2020-10-21] MEDS: MIDAZOLAM HCL 100 MG in DEXTROSE 5%-WATER 180 ML IV PRN ×3 (01:54→13:02)
[2020-10-21] MEDS ORDERED: ENOXAPARIN SODIUM 100 MG/ML PF SYRINGE SQ SCH (03:00)
[2020-10-21] MEDS: FENTANYL CITRATE IV PRN ×3 (03:13→17:49)
[2020-10-21] MEDS: WATER IV PRN ×3 (03:13→17:49)
[2020-10-21] MEDS: CISATRACURIUM BESYLATE 50 MG in DEXTROSE 5%-WATER 245 ML IV PRN ×3 (03:54→15:18)
[2020-10-21] MEDS: CEFEPIME HCL 2 GM in DEXTROSE 5%-WATER 50 ML IV SCH ×3 (05:06→21:22)
[2020-10-21 06:36] LABS: GLUCOSE,POINT OF CARE 252 MG/DL (70-110)
[2020-10-21 06:58] LABS: BASOPHILS % (AUTO) 0.2 % (0.0-2.0); HEMATOCRIT 30.4 % (41-53); HEMOGLOBIN 9.9 g/dL (13.5-17.5); LYMPHOCYTES # (AUTO) 1.4 K/uL (1.0-4.8); MEAN CORPUSCULAR HEMOGLOBIN 28.8 pg (26.0-34.0); MEAN CORPUSCULAR HGB CONC 32.5 G/dL (31.0-37.0); MEAN CORPUSCULAR VOLUME 89 fL (80-100); MONOCYTES % (AUTO) 7.9 % (2.0-9.0); NEUTROPHILS # (AUTO) 10.3 K/uL (1.8-7.7); NEUTROPHILS % (AUTO) 79.9 % (40.0-70.0); PLATELET COUNT (AUTO) 310 K/uL (150-450); RED BLOOD CELL COUNT(AUTO) 3.44 MIL/uL (4.50-5.90); RED CELL DISTRIBUTION WIDTH 14.4 % (11.5-14.5)
[2020-10-21 07:21] LABS: ALANINE AMINOTRANSFERASE 39 U/L (12-78); ALBUMIN 2.2 g/dL (3.4-5.0); ALKALINE PHOSPHATASE 73 U/L (46-116); ANION GAP 1 mmol/L (8-16); ASPARTATE AMINOTRANSFERASE 16 U/L (15-37); BILIRUBIN,TOTAL 0.4 mg/dL (0.1-1.0); CARBON DIOXIDE 39 mmol/L (22-29); CHLORIDE 89 mmol/L (98-107); CREATININE 0.73 mg/dL (0.60-1.30); GLOMERULAR FILTR. RATE CALC > 60 mL/min (>60); GLUCOSE,RANDOM 280 mg/dL (70-110); POTASSIUM 3.6 mmol/L (3.5-5.1); SODIUM SERUM 129 mmol/L (136-145); TOTAL PROTEIN, SERUM 7.3 g/dL (6.4-8.2); UREA NITROGEN, BLOOD 22 mg/dL (7-18)
[2020-10-21] MEDS: DEXAMETHASONE SOD PHOS 4 MG/ML VIAL IVP SCH (08:11)
[2020-10-21] MEDS: PANTOPRAZOLE SODIUM 40 MG/VIAL IVP SCH ×2 (08:12→21:22)
[2020-10-21] MEDS: INSULIN GLARGINE,HUM.REC.ANLOG 100 UNITS/ML SQ SCH ×2 (08:16→21:23)
[2020-10-21] MEDS ORDERED: TOLVAPTAN 15 MG TABLET PO ONE (09:00)
[2020-10-21] MEDS ORDERED: HEPARIN SODIUM,PORCINE 5,000 UNITS/ML VIAL ONE (14:34)
[2020-10-21 15:09] LABS: GLUCOSE,POINT OF CARE 297 MG/DL (70-110)
[2020-10-21] MEDS: LEVOFLOXACIN 750 MG/D5% WATER 150 ML IV SCH (17:02)
[2020-10-21] MEDS: DAPTOMYCIN 500 MG in SODIUM CHLORIDE 0.9% 50 ML IV SCH (18:29)
[2020-10-21] MEDS: CISATRACURIUM BESYLATE 100 MG in DEXTROSE 5%-WATER 240 ML IV PRN (19:06)
[2020-10-21 19:33] LABS: GLUCOSE,POINT OF CARE 285 MG/DL (70-110)
[2020-10-21] MEDS ORDERED: SODIUM CHLORIDE 0.9% 100 ML ONE (20:49)
[2020-10-21] MEDS ORDERED: IOVERSOL 350 MG/ML 100 ML VIAL ONE (20:49)
[2020-10-21] MEDS: ENOXAPARIN SODIUM 80 MG/0.8 ML PF SYRINGE SQ SCH (21:23)
[2020-10-22] VITALS (9 sets, daily range): BP systolic 93–140; BP diastolic 42–72
[2020-10-22] MEDS: INSULIN LISPRO 100 UNITS/ML SQ PRN ×3 (00:12→18:14)
[2020-10-22 00:18] LABS: GLUCOSE,POINT OF CARE 198 MG/DL (70-110)
[2020-10-22] MEDS: NOREPINEPHRINE 4 MG/D5%-WATER 250 ML IV PRN (00:39)
[2020-10-22] MEDS: FENTANYL CITRATE IV PRN ×5 (01:32→23:41)
[2020-10-22] MEDS: WATER IV PRN ×5 (01:32→23:41)
[2020-10-22] MEDS: CISATRACURIUM BESYLATE 100 MG in DEXTROSE 5%-WATER 240 ML IV PRN ×4 (02:03→23:05)
[2020-10-22] MEDS: PROPOFOL 1000 MG/ISO-OSM 100 ML IV PRN ×4 (02:16→22:41)
[2020-10-22 04:20] LABS: BASOPHILS % (AUTO) 0.9 % (0.0-2.0); EOSINOPHILS % (AUTO) 1.2 % (1.0-6.0); HEMATOCRIT 33.3 % (41-53); HEMOGLOBIN 10.6 g/dL (13.5-17.5); LYMPHOCYTES # (AUTO) 1.7 K/uL (1.0-4.8); LYMPHOCYTES % (AUTO) 12.2 % (22.0-44.0); MEAN CORPUSCULAR HEMOGLOBIN 28.6 pg (26.0-34.0); MEAN CORPUSCULAR HGB CONC 31.9 G/dL (31.0-37.0); MEAN CORPUSCULAR VOLUME 90 fL (80-100); MONOCYTES # (AUTO) 1.4 K/uL (0.1-1.0); MONOCYTES % (AUTO) 9.7 % (2.0-9.0); NEUTROPHILS # (AUTO) 10.7 K/uL (1.8-7.7); PLATELET COUNT (AUTO) 349 K/uL (150-450); RED BLOOD CELL COUNT(AUTO) 3.72 MIL/uL (4.50-5.90); RED CELL DISTRIBUTION WIDTH 14.9 % (11.5-14.5)
[2020-10-22 04:47] LABS: ALANINE AMINOTRANSFERASE 33 U/L (12-78); ALBUMIN 2.2 g/dL (3.4-5.0); ALKALINE PHOSPHATASE 78 U/L (46-116); ASPARTATE AMINOTRANSFERASE 14 U/L (15-37); BILIRUBIN,TOTAL 0.4 mg/dL (0.1-1.0); C-REACTIVE PROTEIN QUANT 4.43 mg/dL (0.00-0.30); CALCIUM, TOTAL 8.9 mg/dL (8.8-10.5); CHLORIDE 93 mmol/L (98-107); CREATININE 0.67 mg/dL (0.60-1.30); GLOMERULAR FILTR. RATE CALC > 60 mL/min (>60); GLUCOSE,RANDOM 181 mg/dL (70-110); POTASSIUM 3.9 mmol/L (3.5-5.1); SODIUM SERUM 134 mmol/L (136-145); TOTAL PROTEIN, SERUM 7.2 g/dL (6.4-8.2); UREA NITROGEN, BLOOD 20 mg/dL (7-18)
[2020-10-22] MEDS: CEFEPIME HCL 2 GM in DEXTROSE 5%-WATER 50 ML IV SCH ×3 (05:00→20:55)
[2020-10-22 05:17] LABS: ANION GAP 3 mmol/L (8-16)
[2020-10-22 05:18] LABS: CARBON DIOXIDE 38 mmol/L (22-29)
[2020-10-22] MEDS: DEXAMETHASONE SOD PHOS 4 MG/ML VIAL IVP SCH (09:36)
[2020-10-22] MEDS: PANTOPRAZOLE SODIUM 40 MG/VIAL IVP SCH ×2 (09:37→21:09)
[2020-10-22] MEDS: INSULIN GLARGINE,HUM.REC.ANLOG 100 UNITS/ML SQ SCH ×2 (09:37→21:09)
[2020-10-22 10:04] LABS: D-DIMER 10.54 mg/L FEU (0.00-0.50)
[2020-10-22 10:23] LABS: ALKALINE PHOSPHATASE 83 U/L (46-116); C-REACTIVE PROTEIN QUANT 4.03 mg/dL (0.00-0.30); CREATINE KINASE, TOTAL ONLY 100 U/L (39-308); FERRITIN 492 ng/mL (26-388); LACTATE DEHYDROGENASE 282 U/L (85-227)
[2020-10-22] MEDS: ENOXAPARIN SODIUM 80 MG/0.8 ML PF SYRINGE SQ SCH ×2 (10:35→22:41)
[2020-10-22 12:02] LABS: ABG A-A DIFF O2 272.9 mmHg (10-20.0); ABG BASE EXCESS 16.7 mmol/L (-2.0-3.0); ABG CARBOXYHEMOGLOBIN 1.5 % (0.0-1.5); ABG HCO3 36.7 mmol/L (22.0-26.0); ABG METHEMOGLOBIN 0.3 % (0.0-1.5); ABG OXYGEN CONTENT 16.8 mL/dL (15.0-23.0); ABG OXYGEN SATURATION 91.3 % (95.0-98.0); ABG OXYHEMOGLOBIN 89.7 % (94.0-100.0); ABG PH 7.335 (7.35-7.450); ABG TOTAL HEMOGLOBIN 13.3 G/dL (12.0-18.0); PO2, ARTERIAL BG 64.7 mmHg (84.0-92.0); SOURCE, BLOOD GAS ARTERIAL; TEMPERATURE, FAHRENHEIT, BG 98.9 FAHREN (96.0-98.6)
[2020-10-22 12:03] LABS: ABG PCO2 82 mmHg (35-45); SITE, BLOOD GAS RT RADIAL
[2020-10-22 12:04] LABS: O2 DEVICE,BLOOD GAS VENTILATOR (ROOM AIR); PEEP,BG 12 cm H2O; SPONTANEOUS VT, BG 401 ml; VT, ABG 420 ml
[2020-10-22 12:20] LABS: GLUCOMETER DEV NAME(LOC) AHU.; GLUCOSE,POINT OF CARE 252 MG/DL (70-110)
[2020-10-22] MEDS: MIDAZOLAM HCL 100 MG in DEXTROSE 5%-WATER 180 ML IV PRN (16:36)
[2020-10-22 16:45] LABS: ABG A-A DIFF O2 403.7 mmHg (10-20.0); ABG CARBOXYHEMOGLOBIN 1.3 % (0.0-1.5); ABG HCO3 38.5 mmol/L (22.0-26.0); ABG METHEMOGLOBIN 0.3 % (0.0-1.5); ABG OXYGEN CONTENT 14.8 mL/dL (15.0-23.0); ABG OXYGEN SATURATION 99.2 % (95.0-98.0); ABG OXYHEMOGLOBIN 97.6 % (94.0-100.0); ABG PCO2 100 mmHg (35-45); ABG TOTAL HEMOGLOBIN 10.4 G/dL (12.0-18.0); O2 DEVICE,BLOOD GAS VENTILATOR (ROOM AIR); PO2, ARTERIAL BG 207.8 mmHg (84.0-92.0); SITE, BLOOD GAS RT RADIAL; SOURCE, BLOOD GAS ARTERIAL; TEMPERATURE, FAHRENHEIT, BG 99.5 FAHREN (96.0-98.6); VENT MODE, BG Press. Control Vent (ROOM AIR)
[2020-10-22 16:46] LABS: PEEP,BG 12 cm H2O
[2020-10-22 16:47] LABS: SPONTANEOUS VT, BG 360 ml
[2020-10-22] MEDS: LEVOFLOXACIN 750 MG/D5% WATER 150 ML IV SCH (17:02)
[2020-10-22 18:18] LABS: GLUCOMETER DEV NAME(LOC) AHU.; GLUCOSE,POINT OF CARE 332 MG/DL (70-110)
[2020-10-22] MEDS: DAPTOMYCIN 500 MG in SODIUM CHLORIDE 0.9% 50 ML IV SCH (18:41)
[2020-10-22 19:20] LABS: ABG A-A DIFF O2 428.6 mmHg (10-20.0); ABG BASE EXCESS 14.2 mmol/L (-2.0-3.0); ABG CARBOXYHEMOGLOBIN 0.8 % (0.0-1.5); ABG HCO3 36.4 mmol/L (22.0-26.0); ABG METHEMOGLOBIN 0.3 % (0.0-1.5); ABG OXYGEN CONTENT 13.3 mL/dL (15.0-23.0); ABG OXYGEN SATURATION 99.6 % (95.0-98.0); ABG OXYHEMOGLOBIN 98.5 % (94.0-100.0); ABG PCO2 54 mmHg (35-45); ABG PH 7.467 (7.35-7.450); ABG TOTAL HEMOGLOBIN 9.2 G/dL (12.0-18.0); O2 DEVICE,BLOOD GAS VENTILATOR (ROOM AIR); PO2, ARTERIAL BG 230.8 mmHg (84.0-92.0); SITE, BLOOD GAS RT RADIAL; SOURCE, BLOOD GAS ARTERIAL; TEMPERATURE, FAHRENHEIT, BG 98.6 FAHREN (96.0-98.6)
[2020-10-22 19:21] LABS: PEEP,BG 6 cm H2O; VENT MODE, BG Press. Control Vent (ROOM AIR); VT, ABG 465 ml
[2020-10-22 21:28] LABS: GLUCOMETER DEV NAME(LOC) AHU.; GLUCOSE,POINT OF CARE 248 MG/DL (70-110)
[2020-10-23] VITALS (12 sets, daily range): BP systolic 95–161; BP diastolic 43–81
[2020-10-23] MEDS: INSULIN LISPRO 100 UNITS/ML SQ PRN (01:01)
[2020-10-23 01:08] LABS: GLUCOMETER DEV NAME(LOC) AHU.; GLUCOSE,POINT OF CARE 201 MG/DL (70-110)
[2020-10-23] MEDS: PROPOFOL 1000 MG/ISO-OSM 100 ML IV PRN ×5 (03:13→22:56)
[2020-10-23] MEDS: CISATRACURIUM BESYLATE 100 MG in DEXTROSE 5%-WATER 240 ML IV PRN ×4 (04:22→20:59)
[2020-10-23] MEDS: WATER IV PRN ×3 (04:36→15:36)
[2020-10-23] MEDS: FENTANYL CITRATE IV PRN ×3 (04:36→15:36)
[2020-10-23] MEDS: MIDAZOLAM HCL 100 MG in DEXTROSE 5%-WATER 180 ML IV PRN ×2 (04:39→18:58)
[2020-10-23] MEDS: CEFEPIME HCL 2 GM in DEXTROSE 5%-WATER 50 ML IV SCH ×3 (04:40→20:57)
[2020-10-23 05:59] LABS: BASOPHILS % (AUTO) 0.6 % (0.0-2.0); EOSINOPHILS % (AUTO) 1.2 % (1.0-6.0); HEMATOCRIT 29.4 % (41-53); HEMOGLOBIN 9.8 g/dL (13.5-17.5); LYMPHOCYTES # (AUTO) 1.9 K/uL (1.0-4.8); LYMPHOCYTES % (AUTO) 15.9 % (22.0-44.0); MEAN CORPUSCULAR HEMOGLOBIN 29.6 pg (26.0-34.0); MEAN CORPUSCULAR HGB CONC 33.4 G/dL (31.0-37.0); MEAN CORPUSCULAR VOLUME 89 fL (80-100); MONOCYTES # (AUTO) 0.8 K/uL (0.1-1.0); NEUTROPHILS # (AUTO) 9.1 K/uL (1.8-7.7); NEUTROPHILS % (AUTO) 75.3 % (40.0-70.0); PLATELET COUNT (AUTO) 285 K/uL (150-450); RED BLOOD CELL COUNT(AUTO) 3.33 MIL/uL (4.50-5.90); RED CELL DISTRIBUTION WIDTH 14.6 % (11.5-14.5)
[2020-10-23 06:25] LABS: GLUCOMETER DEV NAME(LOC) AHU.; GLUCOSE,POINT OF CARE 168 MG/DL (70-110)
[2020-10-23 06:38] LABS: ALANINE AMINOTRANSFERASE 38 U/L (12-78); ALBUMIN 2.1 g/dL (3.4-5.0); ALKALINE PHOSPHATASE 74 U/L (46-116); ANION GAP 1 mmol/L (8-16); ASPARTATE AMINOTRANSFERASE 21 U/L (15-37); BILIRUBIN,TOTAL 0.4 mg/dL (0.1-1.0); CALCIUM, TOTAL 8.6 mg/dL (8.8-10.5); CARBON DIOXIDE 38 mmol/L (22-29); CHLORIDE 90 mmol/L (98-107); CREATININE 0.84 mg/dL (0.60-1.30); GLOMERULAR FILTR. RATE CALC > 60 mL/min (>60); GLUCOSE,RANDOM 177 mg/dL (70-110); POTASSIUM 3.6 mmol/L (3.5-5.1); SODIUM SERUM 129 mmol/L (136-145); THYROID STIMULATING HORMONE 0.98 uIU/mL (0.36-3.74); TOTAL PROTEIN, SERUM 6.8 g/dL (6.4-8.2); UREA NITROGEN, BLOOD 28 mg/dL (7-18)
[2020-10-23] MEDS: PANTOPRAZOLE SODIUM 40 MG/VIAL IVP SCH ×2 (08:39→20:57)
[2020-10-23] MEDS: ENOXAPARIN SODIUM 80 MG/0.8 ML PF SYRINGE SQ SCH ×2 (08:40→20:57)
[2020-10-23] MEDS: DEXAMETHASONE SOD PHOS 4 MG/ML VIAL IVP SCH (08:40)
[2020-10-23] MEDS: INSULIN GLARGINE,HUM.REC.ANLOG 100 UNITS/ML SQ SCH ×2 (08:41→21:01)
[2020-10-23 12:40] LABS: GLUCOMETER DEV NAME(LOC) AHU.; GLUCOSE,POINT OF CARE 265 MG/DL (70-110)
[2020-10-23 15:41] LABS: APPEARANCE,URINE CLOUDY (CLEAR); BILIRUBIN,URINE NEGATIVE (NEGATIVE); GLUCOSE, URINE (UA) >=1000 mg/dL (NEGATIVE); KETONES,URINE NEGATIVE (NEGATIVE); LEUKOCYTE ESTERASE ,URINE NEGATIVE (NEGATIVE); NITRATE,URINE NEGATIVE (NEGATIVE); OCCULT BLOOD,URINE NEGATIVE (NEGATIVE); PROTEIN,URINE POS 1+ (NEGATIVE); UROBILINOGEN,URINE 0.2 mg/dL (<=1.0)
[2020-10-23] MEDS: LEVOFLOXACIN 750 MG/D5% WATER 150 ML IV SCH (15:44)
[2020-10-23 16:11] LABS: BACTERIA,URINE None Seen /HPF (None Seen); RBC,URINE 0-2 /HPF (0-2); SQUAMOUS EPITHELIAL CELL,UR Rare /LPF (None Seen); URIC ACID CRYSTALS,URINE Many /LPF (None Seen); WBC,URINE 0-2 /HPF (0-5)
[2020-10-23] MEDS: DAPTOMYCIN 500 MG in SODIUM CHLORIDE 0.9% 50 ML IV SCH (17:24)
[2020-10-23 18:17] LABS: GLUCOMETER DEV NAME(LOC) AHU.; GLUCOSE,POINT OF CARE 236 MG/DL (70-110)
[2020-10-23 21:03] LABS: GLUCOMETER DEV NAME(LOC) AHU.; GLUCOSE,POINT OF CARE 217 MG/DL (70-110)
[2020-10-24] VITALS (13 sets, daily range): BP systolic 91–169; BP diastolic 49–83
[2020-10-24] MEDS: INSULIN LISPRO 100 UNITS/ML SQ PRN ×4 (00:28→18:55)
[2020-10-24 00:36] LABS: GLUCOMETER DEV NAME(LOC) AHU.; GLUCOSE,POINT OF CARE 189 MG/DL (70-110)
[2020-10-24] MEDS: CISATRACURIUM BESYLATE 100 MG in DEXTROSE 5%-WATER 240 ML IV PRN ×3 (02:39→21:20)
[2020-10-24] MEDS: FENTANYL CITRATE IV PRN ×3 (02:39→13:56)
[2020-10-24] MEDS: WATER IV PRN ×3 (02:39→13:56)
[2020-10-24] MEDS: PROPOFOL 1000 MG/ISO-OSM 100 ML IV PRN ×6 (02:51→23:03)
[2020-10-24] MEDS: CEFEPIME HCL 2 GM in DEXTROSE 5%-WATER 50 ML IV SCH ×3 (04:26→21:18)
[2020-10-24 06:59] LABS: GLUCOMETER DEV NAME(LOC) AHU.; GLUCOSE,POINT OF CARE 176 MG/DL (70-110)
[2020-10-24 07:04] LABS: BASOPHILS % (AUTO) 1.1 % (0.0-2.0); EOSINOPHILS % (AUTO) 1.4 % (1.0-6.0); HEMOGLOBIN 9.5 g/dL (13.5-17.5); LYMPHOCYTES # (AUTO) 1.7 K/uL (1.0-4.8); LYMPHOCYTES % (AUTO) 14.3 % (22.0-44.0); MEAN CORPUSCULAR HEMOGLOBIN 29.3 pg (26.0-34.0); MEAN CORPUSCULAR HGB CONC 32.9 G/dL (31.0-37.0); MEAN CORPUSCULAR VOLUME 89 fL (80-100); MONOCYTES % (AUTO) 7.9 % (2.0-9.0); NEUTROPHILS # (AUTO) 9.2 K/uL (1.8-7.7); NEUTROPHILS % (AUTO) 75.3 % (40.0-70.0); PLATELET COUNT (AUTO) 283 K/uL (150-450); RED BLOOD CELL COUNT(AUTO) 3.26 MIL/uL (4.50-5.90)
[2020-10-24] MEDS: MIDAZOLAM HCL 100 MG in DEXTROSE 5%-WATER 180 ML IV PRN ×2 (07:26→23:09)
[2020-10-24 07:30] LABS: ALANINE AMINOTRANSFERASE 36 U/L (12-78); ALBUMIN 2.2 g/dL (3.4-5.0); ALKALINE PHOSPHATASE 78 U/L (46-116); ANION GAP 1 mmol/L (8-16); ASPARTATE AMINOTRANSFERASE 20 U/L (15-37); BILIRUBIN,TOTAL 0.4 mg/dL (0.1-1.0); CALCIUM, TOTAL 8.8 mg/dL (8.8-10.5); CARBON DIOXIDE 38 mmol/L (22-29); CHLORIDE 91 mmol/L (98-107); CREATININE 0.72 mg/dL (0.60-1.30); GLOMERULAR FILTR. RATE CALC > 60 mL/min (>60); GLUCOSE,RANDOM 164 mg/dL (70-110); PHOSPHORUS 3.3 mg/dL (2.5-4.9); POTASSIUM 3.7 mmol/L (3.5-5.1); SODIUM SERUM 130 mmol/L (136-145); TOTAL PROTEIN, SERUM 6.9 g/dL (6.4-8.2); UREA NITROGEN, BLOOD 20 mg/dL (7-18); URIC ACID 1.2 mg/dL (2.6-7.2)
[2020-10-24] MEDS: DEXAMETHASONE SOD PHOS 4 MG/ML VIAL IVP SCH (09:33)
[2020-10-24] MEDS: ENOXAPARIN SODIUM 80 MG/0.8 ML PF SYRINGE SQ SCH ×2 (09:34→21:22)
[2020-10-24] MEDS: INSULIN GLARGINE,HUM.REC.ANLOG 100 UNITS/ML SQ SCH ×2 (09:37→21:18)
[2020-10-24] MEDS: PANTOPRAZOLE SODIUM 40 MG/VIAL IVP SCH ×2 (09:37→21:21)
[2020-10-24] MEDS: ALBUTEROL SULFATE 2.5 MG/0.5 ML NEB SOLUTION NEB SCH ×2 (13:47→20:07)
[2020-10-24] MEDS: ACETYLCYSTEINE 10% 100 MG/ML 4 ML NEB SOLUTION NEB SCH ×2 (13:47→20:08)
[2020-10-24] MEDS: IPRATROPIUM BROMIDE 0.5 MG/2.5 ML NEB SOLUTION NEB SCH ×2 (13:47→20:07)
[2020-10-24] MEDS: ACETAMINOPHEN 650 MG RECTAL SUPPOSITORY PR PRN (14:50)
[2020-10-24] MEDS: LEVOFLOXACIN 750 MG/D5% WATER 150 ML IV SCH (17:19)
[2020-10-24] MEDS: DAPTOMYCIN 500 MG in SODIUM CHLORIDE 0.9% 50 ML IV SCH (18:45)
[2020-10-24 19:15] LABS: GLUCOMETER DEV NAME(LOC) AHU.; GLUCOSE,POINT OF CARE 261 MG/DL (70-110)
[2020-10-24 19:15] LABS: GLUCOMETER DEV NAME(LOC) AHU.; GLUCOSE,POINT OF CARE 254 MG/DL (70-110)
[2020-10-24] MEDS: ACETAMINOPHEN 325 MG TABLET PO PRN (20:27)
[2020-10-25] VITALS (10 sets, daily range): BP systolic 93–157; BP diastolic 46–82
[2020-10-25] MEDS: FENTANYL CITRATE IV PRN ×5 (00:18→20:46)
[2020-10-25] MEDS: WATER IV PRN ×5 (00:18→20:46)
[2020-10-25] MEDS: INSULIN LISPRO 100 UNITS/ML SQ PRN ×3 (00:38→18:11)
[2020-10-25 00:40] LABS: GLUCOMETER DEV NAME(LOC) AHU.; GLUCOSE,POINT OF CARE 153 MG/DL (70-110)
[2020-10-25] MEDS: ACETAMINOPHEN 325 MG TABLET PO PRN (01:30)
[2020-10-25] MEDS: IPRATROPIUM BROMIDE 0.5 MG/2.5 ML NEB SOLUTION NEB SCH ×4 (03:47→20:11)
[2020-10-25] MEDS: ACETYLCYSTEINE 10% 100 MG/ML 4 ML NEB SOLUTION NEB SCH ×4 (03:47→20:11)
[2020-10-25] MEDS: ALBUTEROL SULFATE 2.5 MG/0.5 ML NEB SOLUTION NEB SCH ×4 (03:47→20:11)
[2020-10-25] MEDS: PROPOFOL 1000 MG/ISO-OSM 100 ML IV PRN ×6 (05:17→23:49)
[2020-10-25] MEDS: CEFEPIME HCL 2 GM in DEXTROSE 5%-WATER 50 ML IV SCH ×3 (05:18→21:45)
[2020-10-25 06:05] LABS: GLUCOMETER DEV NAME(LOC) AHU.; GLUCOSE,POINT OF CARE 178 MG/DL (70-110)
[2020-10-25 06:21] LABS: BASOPHILS % (AUTO) 0.4 % (0.0-2.0); EOSINOPHILS % (AUTO) 1.5 % (1.0-6.0); HEMATOCRIT 26.4 % (41-53); LYMPHOCYTES # (AUTO) 1.5 K/uL (1.0-4.8); LYMPHOCYTES % (AUTO) 13.9 % (22.0-44.0); MEAN CORPUSCULAR HEMOGLOBIN 30.2 pg (26.0-34.0); MEAN CORPUSCULAR HGB CONC 34.1 G/dL (31.0-37.0); MEAN CORPUSCULAR VOLUME 89 fL (80-100); MONOCYTES # (AUTO) 0.6 K/uL (0.1-1.0); MONOCYTES % (AUTO) 5.9 % (2.0-9.0); NEUTROPHILS # (AUTO) 8.6 K/uL (1.8-7.7); NEUTROPHILS % (AUTO) 78.3 % (40.0-70.0); PLATELET COUNT (AUTO) 230 K/uL (150-450); RED BLOOD CELL COUNT(AUTO) 2.99 MIL/uL (4.50-5.90); RED CELL DISTRIBUTION WIDTH 14.9 % (11.5-14.5)
[2020-10-25 07:11] LABS: ALANINE AMINOTRANSFERASE 32 U/L (12-78); ALBUMIN 1.9 g/dL (3.4-5.0); ALKALINE PHOSPHATASE 70 U/L (46-116); ANION GAP 1 mmol/L (8-16); BILIRUBIN,TOTAL 0.5 mg/dL (0.1-1.0); CARBON DIOXIDE 39 mmol/L (22-29); CHLORIDE 90 mmol/L (98-107); CREATININE 0.71 mg/dL (0.60-1.30); GLOMERULAR FILTR. RATE CALC > 60 mL/min (>60); GLUCOSE,RANDOM 188 mg/dL (70-110); PHOSPHORUS 3.4 mg/dL (2.5-4.9); SODIUM SERUM 130 mmol/L (136-145); TOTAL PROTEIN, SERUM 6.1 g/dL (6.4-8.2); UREA NITROGEN, BLOOD 18 mg/dL (7-18)
[2020-10-25 07:32] LABS: ASPARTATE AMINOTRANSFERASE 26 U/L (15-37)
[2020-10-25] MEDS ORDERED: POTASSIUM CHLORIDE 20 MEQ ER TABLET PO ONE (08:30)
[2020-10-25] MEDS: NOREPINEPHRINE 4 MG/D5%-WATER 250 ML IV PRN (09:06)
[2020-10-25] MEDS: PANTOPRAZOLE SODIUM 40 MG/VIAL IVP SCH ×2 (11:16→21:44)
[2020-10-25] MEDS: DEXAMETHASONE SOD PHOS 4 MG/ML VIAL IVP SCH (11:17)
[2020-10-25] MEDS: ENOXAPARIN SODIUM 80 MG/0.8 ML PF SYRINGE SQ SCH ×2 (11:17→21:44)
[2020-10-25] MEDS: INSULIN GLARGINE,HUM.REC.ANLOG 100 UNITS/ML SQ SCH ×2 (11:19→22:01)
[2020-10-25] MEDS: POTASSIUM CHL 10 MEQ/WATER 50 ML IV SCH ×2 (12:16→13:04)
[2020-10-25 12:38] LABS: GLUCOMETER DEV NAME(LOC) AHU.; GLUCOSE,POINT OF CARE 217 MG/DL (70-110)
[2020-10-25] MEDS: CISATRACURIUM BESYLATE 100 MG in DEXTROSE 5%-WATER 240 ML IV PRN ×2 (13:07→20:45)
[2020-10-25] MEDS ORDERED: MIDAZOLAM HCL 5 MG/ML VIAL ONE (13:51)
[2020-10-25] MEDS: MIDAZOLAM HCL 100 MG in DEXTROSE 5%-WATER 180 ML IV PRN (14:24)
[2020-10-25] MEDS: LEVOFLOXACIN 750 MG/D5% WATER 150 ML IV SCH (15:58)
[2020-10-25 17:10] LABS: ANION GAP 2 mmol/L (8-16); CALCIUM, TOTAL 8.4 mg/dL (8.8-10.5); CARBON DIOXIDE 37 mmol/L (22-29); CHLORIDE 93 mmol/L (98-107); CREATININE 0.82 mg/dL (0.60-1.30); GLOMERULAR FILTR. RATE CALC > 60 mL/min (>60); GLUCOSE,RANDOM 284 mg/dL (70-110); POTASSIUM 4.8 mmol/L (3.5-5.1); SODIUM SERUM 132 mmol/L (136-145); UREA NITROGEN, BLOOD 20 mg/dL (7-18)
[2020-10-25 17:16] LABS: ABG A-A DIFF O2 379.2 mmHg (10-20.0); ABG BASE EXCESS 17.6 mmol/L (-2.0-3.0); ABG CARBOXYHEMOGLOBIN 1.1 % (0.0-1.5); ABG HCO3 39.4 mmol/L (22.0-26.0); ABG METHEMOGLOBIN 0.3 % (0.0-1.5); ABG OXYGEN CONTENT 13.7 mL/dL (15.0-23.0); ABG OXYGEN SATURATION 98.9 % (95.0-98.0); ABG OXYHEMOGLOBIN 97.5 % (94.0-100.0); ABG PCO2 56 mmHg (35-45); ABG PH 7.481 (7.35-7.450); ABG TOTAL HEMOGLOBIN 9.8 G/dL (12.0-18.0); O2 DEVICE,BLOOD GAS VENTILATOR (ROOM AIR); PO2, ARTERIAL BG 132.1 mmHg (84.0-92.0); SITE, BLOOD GAS RT RADIAL; SOURCE, BLOOD GAS ARTERIAL; TEMPERATURE, FAHRENHEIT, BG 98.6 FAHREN (96.0-98.6); VENT MODE, BG Press. Control Vent (ROOM AIR)
[2020-10-25 17:17] LABS: PEEP,BG 8 cm H2O
[2020-10-25] MEDS: DAPTOMYCIN 500 MG in SODIUM CHLORIDE 0.9% 50 ML IV SCH (17:58)
[2020-10-26] VITALS: BP 109/52
[2020-10-26 00:18] LABS: GLUCOMETER DEV NAME(LOC) AHU.; GLUCOSE,POINT OF CARE 273 MG/DL (70-110)
[2020-10-26 00:18] LABS: GLUCOMETER DEV NAME(LOC) AHU.; GLUCOSE,POINT OF CARE 219 MG/DL (70-110)
[2020-10-26] MEDS: NOREPINEPHRINE 4 MG/D5%-WATER 250 ML IV PRN ×2 (00:59→14:29)
[2020-10-26] MEDS: WATER IV PRN ×5 (02:24→22:27)
[2020-10-26] MEDS: FENTANYL CITRATE IV PRN ×5 (02:24→22:27)
[2020-10-26] MEDS: MIDAZOLAM HCL 100 MG in DEXTROSE 5%-WATER 180 ML IV PRN ×2 (02:47→14:24)
[2020-10-26] MEDS: ACETYLCYSTEINE 10% 100 MG/ML 4 ML NEB SOLUTION NEB SCH ×4 (03:21→19:52)
[2020-10-26] MEDS: ALBUTEROL SULFATE 2.5 MG/0.5 ML NEB SOLUTION NEB SCH ×4 (03:22→19:51)
[2020-10-26] MEDS: IPRATROPIUM BROMIDE 0.5 MG/2.5 ML NEB SOLUTION NEB SCH ×4 (03:22→19:51)
[2020-10-26] MEDS: CISATRACURIUM BESYLATE 100 MG in DEXTROSE 5%-WATER 240 ML IV PRN ×4 (03:42→23:40)
[2020-10-26] MEDS: PROPOFOL 1000 MG/ISO-OSM 100 ML IV PRN ×6 (03:53→22:26)
[2020-10-26] MEDS: CEFEPIME HCL 2 GM in DEXTROSE 5%-WATER 50 ML IV SCH ×3 (04:10→22:03)
[2020-10-26 04:19] VITALS: BP 143/61
[2020-10-26 07:05] LABS: GLUCOMETER DEV NAME(LOC) AHU.; GLUCOSE,POINT OF CARE 201 MG/DL (70-110)
[2020-10-26 07:10] LABS: BASOPHILS % (AUTO) 0.9 % (0.0-2.0); EOSINOPHILS % (AUTO) 1.7 % (1.0-6.0); HEMATOCRIT 28.5 % (41-53); HEMOGLOBIN 9.6 g/dL (13.5-17.5); LYMPHOCYTES # (AUTO) 1.4 K/uL (1.0-4.8); LYMPHOCYTES % (AUTO) 11.1 % (22.0-44.0); MEAN CORPUSCULAR HEMOGLOBIN 29.7 pg (26.0-34.0); MEAN CORPUSCULAR HGB CONC 33.6 G/dL (31.0-37.0); MEAN CORPUSCULAR VOLUME 88 fL (80-100); MONOCYTES # (AUTO) 0.8 K/uL (0.1-1.0); MONOCYTES % (AUTO) 6.2 % (2.0-9.0); NEUTROPHILS # (AUTO) 10.3 K/uL (1.8-7.7); NEUTROPHILS % (AUTO) 80.1 % (40.0-70.0); PLATELET COUNT (AUTO) 239 K/uL (150-450); RED BLOOD CELL COUNT(AUTO) 3.23 MIL/uL (4.50-5.90); RED CELL DISTRIBUTION WIDTH 14.8 % (11.5-14.5)
[2020-10-26] MEDS: INSULIN LISPRO 100 UNITS/ML SQ PRN ×3 (07:23→18:13)
[2020-10-26 07:31] LABS: ALANINE AMINOTRANSFERASE 43 U/L (12-78); ALBUMIN 2.4 g/dL (3.4-5.0); ALKALINE PHOSPHATASE 82 U/L (46-116); ANION GAP 5 mmol/L (8-16); ASPARTATE AMINOTRANSFERASE 25 U/L (15-37); BILIRUBIN,TOTAL 0.5 mg/dL (0.1-1.0); CARBON DIOXIDE 35 mmol/L (22-29); CHLORIDE 90 mmol/L (98-107); CREATININE 0.76 mg/dL (0.60-1.30); GLOMERULAR FILTR. RATE CALC > 60 mL/min (>60); GLUCOSE,RANDOM 203 mg/dL (70-110); POTASSIUM 3.2 mmol/L (3.5-5.1); SODIUM SERUM 130 mmol/L (136-145); TOTAL PROTEIN, SERUM 7.2 g/dL (6.4-8.2); UREA NITROGEN, BLOOD 20 mg/dL (7-18)
[2020-10-26 08:00] VITALS: BP 93/41
[2020-10-26] MEDS ORDERED: POTASSIUM CHLORIDE 20 MEQ ER TABLET PO ONE (08:00)
[2020-10-26] MEDS: POTASSIUM CHL 10 MEQ/WATER 50 ML IV SCH ×2 (09:19→10:17)
[2020-10-26] MEDS: DEXAMETHASONE SOD PHOS 4 MG/ML VIAL IVP SCH (09:20)
[2020-10-26] MEDS: PANTOPRAZOLE SODIUM 40 MG/VIAL IVP SCH ×2 (09:21→22:02)
[2020-10-26] MEDS: INSULIN GLARGINE,HUM.REC.ANLOG 100 UNITS/ML SQ SCH ×2 (10:04→21:00)
[2020-10-26] MEDS: ENOXAPARIN SODIUM 80 MG/0.8 ML PF SYRINGE SQ SCH ×2 (10:04→22:01)
[2020-10-26 12:00] VITALS: BP 119/56
[2020-10-26 12:53] LABS: ANION GAP 3 mmol/L (8-16); CALCIUM, TOTAL 8.7 mg/dL (8.8-10.5); CARBON DIOXIDE 34 mmol/L (22-29); CHLORIDE 89 mmol/L (98-107); CREATININE 0.76 mg/dL (0.60-1.30); GLOMERULAR FILTR. RATE CALC > 60 mL/min (>60); GLUCOSE,RANDOM 214 mg/dL (70-110); SODIUM SERUM 126 mmol/L (136-145); UREA NITROGEN, BLOOD 21 mg/dL (7-18)
[2020-10-26 15:58] LABS: GLUCOMETER DEV NAME(LOC) AHU.; GLUCOSE,POINT OF CARE 202 MG/DL (70-110)
[2020-10-26] MEDS: LEVOFLOXACIN 750 MG/D5% WATER 150 ML IV SCH (15:58)
[2020-10-26 16:00] VITALS: BP 115/57
[2020-10-26] MEDS: DAPTOMYCIN 500 MG in SODIUM CHLORIDE 0.9% 50 ML IV SCH (17:36)
[2020-10-26] MEDS: SODIUM CHLORIDE 1 GM TABLET PO SCH ×2 (18:12→23:40)
[2020-10-26 19:31] LABS: APPEARANCE,URINE CLEAR (CLEAR); BILIRUBIN,URINE NEGATIVE (NEGATIVE); GLUCOSE, URINE (UA) 500 mg/dL (NEGATIVE); KETONES,URINE NEGATIVE (NEGATIVE); LEUKOCYTE ESTERASE ,URINE NEGATIVE (NEGATIVE); NITRATE,URINE NEGATIVE (NEGATIVE); OCCULT BLOOD,URINE NEGATIVE (NEGATIVE); PH,URINE 6.5 (5.0-8.0); PROTEIN,URINE POS 1+ (NEGATIVE); UROBILINOGEN,URINE 0.2 mg/dL (<=1.0)
[2020-10-26 19:35] LABS: BACTERIA,URINE Rare /HPF (None Seen); RBC,URINE 0-2 /HPF (0-2); SQUAMOUS EPITHELIAL CELL,UR Rare /LPF (None Seen); WBC,URINE 0-2 /HPF (0-5)
[2020-10-26 20:00] VITALS: BP 123/55
[2020-10-26] MEDS ORDERED: SODIUM CHLORIDE 0.9% 250 ML IV ONE (22:14)
[2020-10-26 22:28] LABS: GLUCOMETER DEV NAME(LOC) AHU.; GLUCOSE,POINT OF CARE 256 MG/DL (70-110)
[2020-10-26 22:28] LABS: GLUCOMETER DEV NAME(LOC) AHU.; GLUCOSE,POINT OF CARE 221 MG/DL (70-110)
[2020-10-27] VITALS: BP 112/50
[2020-10-27] MEDS: INSULIN LISPRO 100 UNITS/ML SQ PRN ×4 (00:23→23:52)
[2020-10-27] MEDS: PROPOFOL 1000 MG/ISO-OSM 100 ML IV PRN ×3 (02:12→22:45)
[2020-10-27] MEDS: ACETYLCYSTEINE 10% 100 MG/ML 4 ML NEB SOLUTION NEB SCH ×4 (02:21→20:08)
[2020-10-27] MEDS: IPRATROPIUM BROMIDE 0.5 MG/2.5 ML NEB SOLUTION NEB SCH ×4 (02:21→20:08)
[2020-10-27] MEDS: ALBUTEROL SULFATE 2.5 MG/0.5 ML NEB SOLUTION NEB SCH ×4 (02:22→20:08)
[2020-10-27] MEDS: MIDAZOLAM HCL 100 MG in DEXTROSE 5%-WATER 180 ML IV PRN (02:30)
[2020-10-27] MEDS: WATER IV PRN ×3 (03:35→19:44)
[2020-10-27] MEDS: FENTANYL CITRATE IV PRN ×3 (03:35→19:44)
[2020-10-27 04:00] VITALS: BP 112/49
[2020-10-27] MEDS: ACETAMINOPHEN 325 MG TABLET PO PRN (04:42)
[2020-10-27] MEDS: CEFEPIME HCL 2 GM in DEXTROSE 5%-WATER 50 ML IV SCH ×3 (05:20→21:31)
[2020-10-27] MEDS: SODIUM CHLORIDE 1 GM TABLET PO SCH ×4 (06:25→23:44)
[2020-10-27 06:42] LABS: BASOPHILS % (AUTO) 0.4 % (0.0-2.0); EOSINOPHILS % (AUTO) 1.3 % (1.0-6.0); HEMATOCRIT 26.5 % (41-53); HEMOGLOBIN 8.9 g/dL (13.5-17.5); LYMPHOCYTES # (AUTO) 1.4 K/uL (1.0-4.8); LYMPHOCYTES % (AUTO) 12.2 % (22.0-44.0); MEAN CORPUSCULAR HEMOGLOBIN 29.6 pg (26.0-34.0); MEAN CORPUSCULAR HGB CONC 33.6 G/dL (31.0-37.0); MEAN CORPUSCULAR VOLUME 88 fL (80-100); MONOCYTES # (AUTO) 0.8 K/uL (0.1-1.0); MONOCYTES % (AUTO) 7.4 % (2.0-9.0); NEUTROPHILS # (AUTO) 8.8 K/uL (1.8-7.7); NEUTROPHILS % (AUTO) 78.7 % (40.0-70.0); PLATELET COUNT (AUTO) 217 K/uL (150-450); RED BLOOD CELL COUNT(AUTO) 3.01 MIL/uL (4.50-5.90); RED CELL DISTRIBUTION WIDTH 15.7 % (11.5-14.5)
[2020-10-27 07:05] LABS: ALANINE AMINOTRANSFERASE 38 U/L (12-78); ALBUMIN 2.2 g/dL (3.4-5.0); ALKALINE PHOSPHATASE 73 U/L (46-116); ANION GAP 4 mmol/L (8-16); ASPARTATE AMINOTRANSFERASE 19 U/L (15-37); BILIRUBIN,TOTAL 0.4 mg/dL (0.1-1.0); CALCIUM, TOTAL 8.8 mg/dL (8.8-10.5); CARBON DIOXIDE 34 mmol/L (22-29); CHLORIDE 93 mmol/L (98-107); CREATININE 0.81 mg/dL (0.60-1.30); GLOMERULAR FILTR. RATE CALC > 60 mL/min (>60); GLUCOSE,RANDOM 184 mg/dL (70-110); POTASSIUM 3.2 mmol/L (3.5-5.1); SODIUM SERUM 131 mmol/L (136-145); TOTAL PROTEIN, SERUM 6.8 g/dL (6.4-8.2); UREA NITROGEN, BLOOD 23 mg/dL (7-18)
[2020-10-27] MEDS: CISATRACURIUM BESYLATE 100 MG in DEXTROSE 5%-WATER 240 ML IV PRN ×2 (07:16→21:56)
[2020-10-27 07:33] LABS: C-REACTIVE PROTEIN QUANT 9.46 mg/dL (0.00-0.30)
[2020-10-27] MEDS: AMINO ACIDS/PROTEIN HYDROLYS 30 ML TUBE PO SCH ×3 (08:00→17:38)
[2020-10-27] MEDS ORDERED: POTASSIUM CHLORIDE 10 MEQ ER TABLET PO ONE (08:30)
[2020-10-27] MEDS: POTASSIUM CHL 10 MEQ/WATER 50 ML IV SCH ×2 (09:56→11:04)
[2020-10-27] MEDS: ENOXAPARIN SODIUM 80 MG/0.8 ML PF SYRINGE SQ SCH ×2 (10:26→21:31)
[2020-10-27] MEDS: DEXAMETHASONE SOD PHOS 4 MG/ML VIAL IVP SCH (10:26)
[2020-10-27] MEDS: PANTOPRAZOLE SODIUM 40 MG/VIAL IVP SCH ×2 (10:26→21:31)
[2020-10-27] MEDS: INSULIN GLARGINE,HUM.REC.ANLOG 100 UNITS/ML SQ SCH ×2 (10:29→21:32)
[2020-10-27 10:47] LABS: ABG A-A DIFF O2 369.1 mmHg (10-20.0); ABG BASE EXCESS 9.9 mmol/L (-2.0-3.0); ABG CARBOXYHEMOGLOBIN 0.9 % (0.0-1.5); ABG HCO3 32.7 mmol/L (22.0-26.0); ABG METHEMOGLOBIN 0.3 % (0.0-1.5); ABG OXYGEN CONTENT 11.3 mL/dL (15.0-23.0); ABG OXYGEN SATURATION 86.1 % (95.0-98.0); ABG OXYHEMOGLOBIN 85.1 % (94.0-100.0); ABG PCO2 42 mmHg (35-45); ABG TOTAL HEMOGLOBIN 9.4 G/dL (12.0-18.0); PO2, ARTERIAL BG 48.3 mmHg (84.0-92.0); SOURCE, BLOOD GAS ARTERIAL; TEMPERATURE, FAHRENHEIT, BG 98.8 FAHREN (96.0-98.6)
[2020-10-27 10:48] LABS: O2 DEVICE,BLOOD GAS VENTILATOR (ROOM AIR); PEEP,BG 6 cm H2O; SITE, BLOOD GAS RT RADIAL; SPONTANEOUS VT, BG 671 ml; VENT MODE, BG Press. Control Vent (ROOM AIR)
[2020-10-27 10:49] LABS: GLUCOMETER DEV NAME(LOC) AHU.; GLUCOSE,POINT OF CARE 217 MG/DL (70-110)
[2020-10-27 10:49] LABS: GLUCOMETER DEV NAME(LOC) AHU.; GLUCOSE,POINT OF CARE 180 MG/DL (70-110)
[2020-10-27 12:03] LABS: GLUCOMETER DEV NAME(LOC) AHU.; GLUCOSE,POINT OF CARE 194 MG/DL (70-110)
[2020-10-27 12:25] LABS: D-DIMER 9.89 mg/L FEU (0.00-0.50)
[2020-10-27 12:43] LABS: C-REACTIVE PROTEIN QUANT 8.25 mg/dL (0.00-0.30)
[2020-10-27] MEDS: ACETAMINOPHEN 650 MG RECTAL SUPPOSITORY PR PRN (14:28)
[2020-10-27 16:00] VITALS: BP_SYST 105; BP_SYST 124; BP_DIAS 55; BP_DIAS 68
[2020-10-27] MEDS: LEVOFLOXACIN 750 MG/D5% WATER 150 ML IV SCH (16:13)
[2020-10-27 18:00] VITALS: BP 131/77
[2020-10-27] MEDS ORDERED: CASPOFUNGIN ACETATE 70 MG in SODIUM CHLORIDE 0.9% 250 ML IV ONE (18:00)
[2020-10-27] MEDS: DAPTOMYCIN 500 MG in SODIUM CHLORIDE 0.9% 50 ML IV SCH (18:31)
[2020-10-27 19:11] LABS: GLUCOMETER DEV NAME(LOC) AHU.; GLUCOSE,POINT OF CARE 302 MG/DL (70-110)
[2020-10-27 20:00] VITALS: BP 132/79
[2020-10-27 21:04] LABS: ANION GAP 7 mmol/L (8-16); CALCIUM, TOTAL 8.2 mg/dL (8.8-10.5); CARBON DIOXIDE 30 mmol/L (22-29); CHLORIDE 89 mmol/L (98-107); CREATININE 0.72 mg/dL (0.60-1.30); GLOMERULAR FILTR. RATE CALC > 60 mL/min (>60); GLUCOSE,RANDOM 327 mg/dL (70-110); POTASSIUM 3.8 mmol/L (3.5-5.1); SODIUM SERUM 126 mmol/L (136-145); UREA NITROGEN, BLOOD 23 mg/dL (7-18)
[2020-10-27 22:00] VITALS: BP 131/81
[2020-10-28] VITALS (8 sets, daily range): BP systolic 97–144; BP diastolic 39–83
[2020-10-28] MEDS: WATER IV PRN ×5 (01:41→22:42)
[2020-10-28] MEDS: FENTANYL CITRATE IV PRN ×5 (01:41→22:42)
[2020-10-28] MEDS: IPRATROPIUM BROMIDE 0.5 MG/2.5 ML NEB SOLUTION NEB SCH ×4 (02:10→21:55)
[2020-10-28] MEDS: ALBUTEROL SULFATE 2.5 MG/0.5 ML NEB SOLUTION NEB SCH ×4 (02:10→21:55)
[2020-10-28] MEDS: ACETYLCYSTEINE 10% 100 MG/ML 4 ML NEB SOLUTION NEB SCH ×4 (02:11→21:56)
[2020-10-28] MEDS: PROPOFOL 1000 MG/ISO-OSM 100 ML IV PRN ×3 (02:59→17:43)
[2020-10-28] MEDS: CEFEPIME HCL 2 GM in DEXTROSE 5%-WATER 50 ML IV SCH ×3 (04:47→22:00)
[2020-10-28] MEDS: CISATRACURIUM BESYLATE 100 MG in DEXTROSE 5%-WATER 240 ML IV PRN ×3 (04:48→19:22)
[2020-10-28] MEDS: SODIUM CHLORIDE 1 GM TABLET PO SCH ×3 (05:03→18:07)
[2020-10-28 06:42] LABS: BASOPHILS % (AUTO) 0.4 % (0.0-2.0); EOSINOPHILS % (AUTO) 1.2 % (1.0-6.0); HEMATOCRIT 27.9 % (41-53); HEMOGLOBIN 9.4 g/dL (13.5-17.5); LYMPHOCYTES # (AUTO) 1.1 K/uL (1.0-4.8); LYMPHOCYTES % (AUTO) 11.6 % (22.0-44.0); MEAN CORPUSCULAR HEMOGLOBIN 30.2 pg (26.0-34.0); MEAN CORPUSCULAR HGB CONC 33.6 G/dL (31.0-37.0); MEAN CORPUSCULAR VOLUME 90 fL (80-100); MONOCYTES # (AUTO) 0.7 K/uL (0.1-1.0); MONOCYTES % (AUTO) 7.2 % (2.0-9.0); NEUTROPHILS # (AUTO) 7.7 K/uL (1.8-7.7); NEUTROPHILS % (AUTO) 79.6 % (40.0-70.0); PLATELET COUNT (AUTO) 219 K/uL (150-450); RED CELL DISTRIBUTION WIDTH 15.8 % (11.5-14.5)
[2020-10-28] MEDS: INSULIN LISPRO 100 UNITS/ML SQ PRN ×3 (06:56→18:09)
[2020-10-28 07:15] LABS: ALANINE AMINOTRANSFERASE 39 U/L (12-78); ALBUMIN 2.1 g/dL (3.4-5.0); ALKALINE PHOSPHATASE 70 U/L (46-116); ANION GAP 8 mmol/L (8-16); ASPARTATE AMINOTRANSFERASE 20 U/L (15-37); BILIRUBIN,TOTAL 0.5 mg/dL (0.1-1.0); CALCIUM, TOTAL 8.4 mg/dL (8.8-10.5); CARBON DIOXIDE 30 mmol/L (22-29); CHLORIDE 93 mmol/L (98-107); GLOMERULAR FILTR. RATE CALC > 60 mL/min (>60); GLUCOSE,RANDOM 248 mg/dL (70-110); SODIUM SERUM 131 mmol/L (136-145); TOTAL PROTEIN, SERUM 6.6 g/dL (6.4-8.2); UREA NITROGEN, BLOOD 23 mg/dL (7-18)
[2020-10-28 07:42] LABS: POTASSIUM 2.9 mmol/L (3.5-5.1)
[2020-10-28] MEDS ORDERED: POTASSIUM CHLORIDE 10% 40 MEQ/30 ML LIQUID UDCUP GT ONE (08:00)
[2020-10-28] MEDS ORDERED: SODIUM CHLORIDE 0.9% 250 ML IV ONE (08:00)
[2020-10-28] MEDS: POTASSIUM CHL 10 MEQ/WATER 50 ML IV SCH ×2 (08:08→09:21)
[2020-10-28] MEDS ORDERED: BISACODYL 10 MG RECTAL RECTAL SUPPOSITORY PR PRN (09:00)
[2020-10-28] MEDS ORDERED: MAGNESIUM HYDROXIDE SUSPENSION 30 ML UDCUP PO PRN (09:00)
[2020-10-28] MEDS: PANTOPRAZOLE SODIUM 40 MG/VIAL IVP SCH ×2 (09:16→21:30)
[2020-10-28] MEDS: DEXAMETHASONE SOD PHOS 4 MG/ML VIAL IVP SCH (09:17)
[2020-10-28] MEDS: ENOXAPARIN SODIUM 80 MG/0.8 ML PF SYRINGE SQ SCH ×2 (09:17→21:30)
[2020-10-28] MEDS: INSULIN GLARGINE,HUM.REC.ANLOG 100 UNITS/ML SQ SCH ×2 (09:21→21:40)
[2020-10-28] MEDS: AMINO ACIDS/PROTEIN HYDROLYS 30 ML TUBE PO SCH ×3 (09:21→15:41)
[2020-10-28 12:23] LABS: GLUCOMETER DEV NAME(LOC) AHU.; GLUCOSE,POINT OF CARE 193 MG/DL (70-110)
[2020-10-28] MEDS: LEVOFLOXACIN 750 MG/D5% WATER 150 ML IV SCH (15:31)
[2020-10-28] MEDS: MIDAZOLAM HCL 100 MG in DEXTROSE 5%-WATER 180 ML IV PRN (15:40)
[2020-10-28] MEDS: DAPTOMYCIN 500 MG in SODIUM CHLORIDE 0.9% 50 ML IV SCH (17:29)
[2020-10-28 18:11] LABS: GLUCOMETER DEV NAME(LOC) AHU.; GLUCOSE,POINT OF CARE 258 MG/DL (70-110)
[2020-10-28] MEDS: CASPOFUNGIN ACETATE 50 MG in SODIUM CHLORIDE 0.9% 250 ML IV SCH (21:35)
[2020-10-29] VITALS (13 sets, daily range): BP systolic 84–159; BP diastolic 45–92
[2020-10-29] MEDS: SODIUM CHLORIDE 1 GM TABLET PO SCH ×4 (01:03→18:08)
[2020-10-29] MEDS: PROPOFOL 1000 MG/ISO-OSM 100 ML IV PRN ×5 (01:08→22:19)
[2020-10-29] MEDS: INSULIN LISPRO 100 UNITS/ML SQ PRN ×4 (01:27→17:59)
[2020-10-29 01:46] LABS: GLUCOMETER DEV NAME(LOC) AHU.; GLUCOSE,POINT OF CARE 191 MG/DL (70-110)
[2020-10-29] MEDS: IPRATROPIUM BROMIDE 0.5 MG/2.5 ML NEB SOLUTION NEB SCH ×4 (02:44→20:51)
[2020-10-29] MEDS: ALBUTEROL SULFATE 2.5 MG/0.5 ML NEB SOLUTION NEB SCH ×4 (02:44→20:51)
[2020-10-29] MEDS: ACETYLCYSTEINE 10% 100 MG/ML 4 ML NEB SOLUTION NEB SCH ×4 (02:44→20:51)
[2020-10-29] MEDS: CISATRACURIUM BESYLATE 100 MG in DEXTROSE 5%-WATER 240 ML IV PRN ×2 (03:23→17:07)
[2020-10-29] MEDS: FENTANYL CITRATE IV PRN ×5 (03:28→23:30)
[2020-10-29] MEDS: WATER IV PRN ×5 (03:28→23:30)
[2020-10-29] MEDS: CEFEPIME HCL 2 GM in DEXTROSE 5%-WATER 50 ML IV SCH ×3 (04:53→20:34)
[2020-10-29] MEDS: MIDAZOLAM HCL 100 MG in DEXTROSE 5%-WATER 180 ML IV PRN ×2 (04:55→17:08)
[2020-10-29 05:39] LABS: BASOPHILS % (AUTO) 0.7 % (0.0-2.0); EOSINOPHILS % (AUTO) 1.8 % (1.0-6.0); HEMATOCRIT 27.2 % (41-53); HEMOGLOBIN 9.1 g/dL (13.5-17.5); LYMPHOCYTES # (AUTO) 1.5 K/uL (1.0-4.8); LYMPHOCYTES % (AUTO) 12.6 % (22.0-44.0); MEAN CORPUSCULAR HEMOGLOBIN 29.5 pg (26.0-34.0); MEAN CORPUSCULAR HGB CONC 33.6 G/dL (31.0-37.0); MEAN CORPUSCULAR VOLUME 88 fL (80-100); MONOCYTES # (AUTO) 0.9 K/uL (0.1-1.0); MONOCYTES % (AUTO) 7.6 % (2.0-9.0); NEUTROPHILS % (AUTO) 77.3 % (40.0-70.0); PLATELET COUNT (AUTO) 250 K/uL (150-450); RED BLOOD CELL COUNT(AUTO) 3.09 MIL/uL (4.50-5.90)
[2020-10-29 05:52] LABS: ALANINE AMINOTRANSFERASE 38 U/L (12-78); ALBUMIN 2.3 g/dL (3.4-5.0); ALKALINE PHOSPHATASE 72 U/L (46-116); ANION GAP 8 mmol/L (8-16); ASPARTATE AMINOTRANSFERASE 21 U/L (15-37); BILIRUBIN,TOTAL 0.4 mg/dL (0.1-1.0); C-REACTIVE PROTEIN QUANT 4.79 mg/dL (0.00-0.30); CALCIUM, TOTAL 8.5 mg/dL (8.8-10.5); CARBON DIOXIDE 27 mmol/L (22-29); CHLORIDE 96 mmol/L (98-107); GLOMERULAR FILTR. RATE CALC > 60 mL/min (>60); GLUCOSE,RANDOM 136 mg/dL (70-110); PHOSPHORUS 3.9 mg/dL (2.5-4.9); POTASSIUM 3.3 mmol/L (3.5-5.1); SODIUM SERUM 131 mmol/L (136-145); TOTAL PROTEIN, SERUM 6.7 g/dL (6.4-8.2); UREA NITROGEN, BLOOD 27 mg/dL (7-18)
[2020-10-29 06:40] LABS: GLUCOMETER DEV NAME(LOC) AHU.; GLUCOSE,POINT OF CARE 140 MG/DL (70-110)
[2020-10-29] MEDS: AMINO ACIDS/PROTEIN HYDROLYS 30 ML TUBE PO SCH ×3 (08:09→17:40)
[2020-10-29] MEDS: ENOXAPARIN SODIUM 80 MG/0.8 ML PF SYRINGE SQ SCH ×2 (08:10→20:34)
[2020-10-29] MEDS: PANTOPRAZOLE SODIUM 40 MG/VIAL IVP SCH ×2 (08:10→20:34)
[2020-10-29] MEDS: INSULIN GLARGINE,HUM.REC.ANLOG 100 UNITS/ML SQ SCH ×2 (08:44→20:42)
[2020-10-29] MEDS: DEXAMETHASONE SOD PHOS 4 MG/ML VIAL IVP SCH (08:44)
[2020-10-29 08:48] LABS: GLUCOMETER DEV NAME(LOC) AHU.; GLUCOSE,POINT OF CARE 175 MG/DL (70-110)
[2020-10-29] MEDS: DIAZEPAM 5 MG TABLET NG PRN (11:42)
[2020-10-29] MEDS ORDERED: OxyCODONE HCL/ACETAMINOPHEN 5-325 MG TABLET NG PRN (11:45)
[2020-10-29] MEDS: OxyCODONE HCL 5 MG IR TABLET NG PRN (11:50)
[2020-10-29] MEDS: KETAMINE HCL 500 MG in DEXTROSE 5%-WATER 490 ML IV PRN (12:57)
[2020-10-29 14:01] LABS: GLUCOMETER DEV NAME(LOC) AHU.; GLUCOSE,POINT OF CARE 285 MG/DL (70-110)
[2020-10-29] MEDS: POTASSIUM CHL 10 MEQ/WATER 50 ML IV SCH ×2 (14:04→15:18)
[2020-10-29] MEDS: NOREPINEPHRINE 4 MG/D5%-WATER 250 ML IV PRN (15:40)
[2020-10-29] MEDS: LEVOFLOXACIN 750 MG/D5% WATER 150 ML IV SCH (16:31)
[2020-10-29] MEDS: CASPOFUNGIN ACETATE 50 MG in SODIUM CHLORIDE 0.9% 250 ML IV SCH (18:00)
[2020-10-29] MEDS: DAPTOMYCIN 500 MG in SODIUM CHLORIDE 0.9% 50 ML IV SCH (18:17)
[2020-10-29 19:33] LABS: GLUCOMETER DEV NAME(LOC) AHU.; GLUCOSE,POINT OF CARE 246 MG/DL (70-110)
[2020-10-29 21:44] LABS: GLUCOMETER DEV NAME(LOC) AHU.; GLUCOSE,POINT OF CARE 205 MG/DL (70-110)
[2020-10-30] VITALS (18 sets, daily range): BP systolic 87–160; BP diastolic 43–89
[2020-10-30] MEDS: SODIUM CHLORIDE 1 GM TABLET PO SCH ×4 (00:21→21:19)
[2020-10-30] MEDS: CISATRACURIUM BESYLATE 100 MG in DEXTROSE 5%-WATER 240 ML IV PRN ×4 (00:22→21:45)
[2020-10-30] MEDS: PROPOFOL 1000 MG/ISO-OSM 100 ML IV PRN ×6 (01:24→21:43)
[2020-10-30] MEDS: INSULIN LISPRO 100 UNITS/ML SQ PRN ×3 (01:52→18:36)
[2020-10-30 01:53] LABS: GLUCOMETER DEV NAME(LOC) AHU.; GLUCOSE,POINT OF CARE 155 MG/DL (70-110)
[2020-10-30] MEDS: IPRATROPIUM BROMIDE 0.5 MG/2.5 ML NEB SOLUTION NEB SCH ×4 (04:16→20:21)
[2020-10-30] MEDS: ACETYLCYSTEINE 10% 100 MG/ML 4 ML NEB SOLUTION NEB SCH ×4 (04:16→20:21)
[2020-10-30] MEDS: ALBUTEROL SULFATE 2.5 MG/0.5 ML NEB SOLUTION NEB SCH ×4 (04:16→20:21)
[2020-10-30] MEDS: WATER IV PRN ×4 (04:43→21:44)
[2020-10-30] MEDS: FENTANYL CITRATE IV PRN ×4 (04:43→21:44)
[2020-10-30] MEDS: CEFEPIME HCL 2 GM in DEXTROSE 5%-WATER 50 ML IV SCH ×2 (05:34→12:58)
[2020-10-30 05:48] LABS: BASOPHILS % (AUTO) 0.5 % (0.0-2.0); EOSINOPHILS % (AUTO) 2.5 % (1.0-6.0); HEMATOCRIT 29.7 % (41-53); HEMOGLOBIN 9.8 g/dL (13.5-17.5); LYMPHOCYTES # (AUTO) 1.9 K/uL (1.0-4.8); LYMPHOCYTES % (AUTO) 16.4 % (22.0-44.0); MEAN CORPUSCULAR HEMOGLOBIN 29.4 pg (26.0-34.0); MEAN CORPUSCULAR HGB CONC 32.9 G/dL (31.0-37.0); MEAN CORPUSCULAR VOLUME 89 fL (80-100); MONOCYTES # (AUTO) 0.8 K/uL (0.1-1.0); MONOCYTES % (AUTO) 7.2 % (2.0-9.0); NEUTROPHILS # (AUTO) 8.3 K/uL (1.8-7.7); NEUTROPHILS % (AUTO) 73.4 % (40.0-70.0); PLATELET COUNT (AUTO) 237 K/uL (150-450); RED BLOOD CELL COUNT(AUTO) 3.33 MIL/uL (4.50-5.90); RED CELL DISTRIBUTION WIDTH 16.1 % (11.5-14.5)
[2020-10-30 06:01] LABS: ANION GAP 9 mmol/L (8-16); C-REACTIVE PROTEIN QUANT 4.86 mg/dL (0.00-0.30); CALCIUM, TOTAL 8.9 mg/dL (8.8-10.5); CARBON DIOXIDE 28 mmol/L (22-29); CHLORIDE 96 mmol/L (98-107); CREATININE 0.63 mg/dL (0.60-1.30); GLOMERULAR FILTR. RATE CALC > 60 mL/min (>60); GLUCOSE,RANDOM 142 mg/dL (70-110); POTASSIUM 3.1 mmol/L (3.5-5.1); SODIUM SERUM 133 mmol/L (136-145); UREA NITROGEN, BLOOD 25 mg/dL (7-18)
[2020-10-30] MEDS: MIDAZOLAM HCL 100 MG in DEXTROSE 5%-WATER 180 ML IV PRN ×2 (06:40→19:12)
[2020-10-30] MEDS: DIAZEPAM 5 MG TABLET NG PRN (07:29)
[2020-10-30] MEDS: OxyCODONE HCL 5 MG IR TABLET NG PRN (07:29)
[2020-10-30] MEDS ORDERED: POTASSIUM CHLORIDE 10% 40 MEQ/30 ML LIQUID UDCUP NG ONE (08:30)
[2020-10-30] MEDS ORDERED: POTASSIUM CHL 10 MEQ/WATER 50 ML IV ONE (08:30)
[2020-10-30] MEDS: DEXAMETHASONE SOD PHOS 4 MG/ML VIAL IVP SCH (08:35)
[2020-10-30] MEDS: AMINO ACIDS/PROTEIN HYDROLYS 30 ML TUBE PO SCH ×3 (08:36→18:08)
[2020-10-30] MEDS: PANTOPRAZOLE SODIUM 40 MG/VIAL IVP SCH ×2 (08:36→21:19)
[2020-10-30] MEDS: ENOXAPARIN SODIUM 80 MG/0.8 ML PF SYRINGE SQ SCH ×2 (08:37→21:19)
[2020-10-30] MEDS: INSULIN GLARGINE,HUM.REC.ANLOG 100 UNITS/ML SQ SCH ×2 (09:01→21:23)
[2020-10-30 09:05] LABS: GLUCOMETER DEV NAME(LOC) AHU.; GLUCOSE,POINT OF CARE 165 MG/DL (70-110)
[2020-10-30 09:05] LABS: GLUCOMETER DEV NAME(LOC) AHU.; GLUCOSE,POINT OF CARE 140 MG/DL (70-110)
[2020-10-30] MEDS: POTASSIUM CHL 10 MEQ/WATER 50 ML IV PRN ×3 (10:00→12:00)
[2020-10-30 12:55] LABS: ABG A-A DIFF O2 526.2 mmHg (10-20.0); ABG BASE EXCESS 2.6 mmol/L (-2.0-3.0); ABG CARBOXYHEMOGLOBIN 1.6 % (0.0-1.5); ABG HCO3 25.5 mmol/L (22.0-26.0); ABG OXYGEN CONTENT 14.4 mL/dL (15.0-23.0); ABG OXYGEN SATURATION 97.1 % (95.0-98.0); ABG OXYHEMOGLOBIN 95.5 % (94.0-100.0); ABG PCO2 77 mmHg (35-45); ABG PH 7.214 (7.35-7.450); ABG TOTAL HEMOGLOBIN 10.6 G/dL (12.0-18.0); O2 DEVICE,BLOOD GAS VENTILATOR (ROOM AIR); PEEP,BG 10 cm H2O; PO2, ARTERIAL BG 109.6 mmHg (84.0-92.0); SITE, BLOOD GAS RT RADIAL; SOURCE, BLOOD GAS ARTERIAL; TEMPERATURE, FAHRENHEIT, BG 98.6 FAHREN (96.0-98.6); VENT MODE, BG Press. Control Vent (ROOM AIR); VT, ABG 480 ml
[2020-10-30 12:56] LABS: INSPIRATORY TIME, BG 0.8 SEC
[2020-10-30 13:18] LABS: GLUCOMETER DEV NAME(LOC) AHU.; GLUCOSE,POINT OF CARE 219 MG/DL (70-110)
[2020-10-30 15:21] LABS: ANION GAP 5 mmol/L (8-16); CALCIUM, TOTAL 8.3 mg/dL (8.8-10.5); CARBON DIOXIDE 29 mmol/L (22-29); CHLORIDE 97 mmol/L (98-107); CREATININE 0.59 mg/dL (0.60-1.30); GLOMERULAR FILTR. RATE CALC > 60 mL/min (>60); GLUCOSE,RANDOM 236 mg/dL (70-110); POTASSIUM 5.4 mmol/L (3.5-5.1); SODIUM SERUM 131 mmol/L (136-145); UREA NITROGEN, BLOOD 25 mg/dL (7-18)
[2020-10-30] MEDS: LEVOFLOXACIN 750 MG/D5% WATER 150 ML IV SCH (16:19)
[2020-10-30] MEDS: CASPOFUNGIN ACETATE 50 MG in SODIUM CHLORIDE 0.9% 250 ML IV SCH (17:07)
[2020-10-30] MEDS: DAPTOMYCIN 500 MG in SODIUM CHLORIDE 0.9% 50 ML IV SCH (18:08)
[2020-10-30 18:42] LABS: GLUCOMETER DEV NAME(LOC) AHU.; GLUCOSE,POINT OF CARE 225 MG/DL (70-110)
[2020-10-30] MEDS: PIPERACILLIN/TAZO 3.375 GM/D5W 50 ML IV SCH (21:18)
[2020-10-30] MEDS: NOREPINEPHRINE 4 MG/D5%-WATER 250 ML IV PRN (22:56)
[2020-10-31] VITALS (8 sets, daily range): BP systolic 105–171; BP diastolic 48–112
[2020-10-31 01:16] LABS: GLUCOMETER DEV NAME(LOC) AHU.; GLUCOSE,POINT OF CARE 155 MG/DL (70-110)
[2020-10-31] MEDS: ACETYLCYSTEINE 10% 100 MG/ML 4 ML NEB SOLUTION NEB SCH ×4 (02:00→20:08)
[2020-10-31] MEDS: PROPOFOL 1000 MG/ISO-OSM 100 ML IV PRN ×2 (02:38→06:52)
[2020-10-31] MEDS: WATER IV PRN ×3 (02:38→23:09)
[2020-10-31] MEDS: FENTANYL CITRATE IV PRN ×3 (02:38→23:09)
[2020-10-31] MEDS: CISATRACURIUM BESYLATE 100 MG in DEXTROSE 5%-WATER 240 ML IV PRN ×2 (02:39→09:09)
[2020-10-31] MEDS: PIPERACILLIN/TAZO 3.375 GM/D5W 50 ML IV SCH ×4 (03:00→21:48)
[2020-10-31] MEDS: ALBUTEROL SULFATE 2.5 MG/0.5 ML NEB SOLUTION NEB SCH ×4 (04:06→20:08)
[2020-10-31] MEDS: IPRATROPIUM BROMIDE 0.5 MG/2.5 ML NEB SOLUTION NEB SCH ×4 (04:07→20:08)
[2020-10-31 05:45] LABS: BASOPHILS % (AUTO) 0.6 % (0.0-2.0); EOSINOPHILS % (AUTO) 1.7 % (1.0-6.0); HEMATOCRIT 30.6 % (41-53); LYMPHOCYTES # (AUTO) 1.3 K/uL (1.0-4.8); LYMPHOCYTES % (AUTO) 11.8 % (22.0-44.0); MEAN CORPUSCULAR HGB CONC 32.6 G/dL (31.0-37.0); MEAN CORPUSCULAR VOLUME 89 fL (80-100); MONOCYTES # (AUTO) 1.1 K/uL (0.1-1.0); MONOCYTES % (AUTO) 9.6 % (2.0-9.0); NEUTROPHILS # (AUTO) 8.5 K/uL (1.8-7.7); NEUTROPHILS % (AUTO) 76.3 % (40.0-70.0); PLATELET COUNT (AUTO) 240 K/uL (150-450); RED BLOOD CELL COUNT(AUTO) 3.43 MIL/uL (4.50-5.90); RED CELL DISTRIBUTION WIDTH 15.9 % (11.5-14.5)
[2020-10-31 06:16] LABS: ALANINE AMINOTRANSFERASE 44 U/L (12-78); ALBUMIN 2.2 g/dL (3.4-5.0); ALKALINE PHOSPHATASE 98 U/L (46-116); ANION GAP 7 mmol/L (8-16); ASPARTATE AMINOTRANSFERASE 19 U/L (15-37); BILIRUBIN,TOTAL 0.2 mg/dL (0.1-1.0); C-REACTIVE PROTEIN QUANT 3.51 mg/dL (0.00-0.30); CALCIUM, TOTAL 8.5 mg/dL (8.8-10.5); CARBON DIOXIDE 29 mmol/L (22-29); CHLORIDE 96 mmol/L (98-107); CREATININE 0.64 mg/dL (0.60-1.30); GLOMERULAR FILTR. RATE CALC > 60 mL/min (>60); GLUCOSE,RANDOM 189 mg/dL (70-110); POTASSIUM 3.8 mmol/L (3.5-5.1); SODIUM SERUM 132 mmol/L (136-145); TOTAL PROTEIN, SERUM 6.5 g/dL (6.4-8.2); UREA NITROGEN, BLOOD 21 mg/dL (7-18)
[2020-10-31] MEDS: INSULIN LISPRO 100 UNITS/ML SQ PRN ×3 (06:31→19:36)
[2020-10-31 06:33] LABS: GLUCOMETER DEV NAME(LOC) AHU.; GLUCOSE,POINT OF CARE 210 MG/DL (70-110)
[2020-10-31] MEDS: KETAMINE HCL 500 MG in DEXTROSE 5%-WATER 490 ML IV PRN (07:14)
[2020-10-31] MEDS: MIDAZOLAM HCL 100 MG in DEXTROSE 5%-WATER 180 ML IV PRN (07:36)
[2020-10-31] MEDS: AMINO ACIDS/PROTEIN HYDROLYS 30 ML TUBE PO SCH ×3 (08:51→18:34)
[2020-10-31] MEDS: PANTOPRAZOLE SODIUM 40 MG/VIAL IVP SCH ×2 (08:52→21:48)
[2020-10-31] MEDS: SODIUM CHLORIDE 1 GM TABLET PO SCH ×3 (08:52→21:49)
[2020-10-31] MEDS: DEXAMETHASONE SOD PHOS 4 MG/ML VIAL IVP SCH (08:52)
[2020-10-31] MEDS: ENOXAPARIN SODIUM 80 MG/0.8 ML PF SYRINGE SQ SCH ×2 (08:53→21:48)
[2020-10-31] MEDS: INSULIN GLARGINE,HUM.REC.ANLOG 100 UNITS/ML SQ SCH ×2 (08:55→21:52)
[2020-10-31] MEDS ORDERED: SODIUM CHLORIDE 0.9% 250 ML IV ONE (09:01)
[2020-10-31 15:55] LABS: GLUCOMETER DEV NAME(LOC) AHU.; GLUCOSE,POINT OF CARE 243 MG/DL (70-110)
[2020-10-31] MEDS: CASPOFUNGIN ACETATE 50 MG in SODIUM CHLORIDE 0.9% 250 ML IV SCH (18:35)
[2020-10-31] MEDS: DAPTOMYCIN 500 MG in SODIUM CHLORIDE 0.9% 50 ML IV SCH (18:35)
[2020-10-31 19:09] LABS: GLUCOMETER DEV NAME(LOC) AHU.; GLUCOSE,POINT OF CARE 215 MG/DL (70-110)
[2020-11-01] VITALS (12 sets, daily range): BP systolic 92–157; BP diastolic 40–88
[2020-11-01 01:24] LABS: GLUCOMETER DEV NAME(LOC) AHU.; GLUCOSE,POINT OF CARE 154 MG/DL (70-110)
[2020-11-01] MEDS: CISATRACURIUM BESYLATE 100 MG in DEXTROSE 5%-WATER 240 ML IV PRN ×3 (02:11→20:30)
[2020-11-01] MEDS: PROPOFOL 1000 MG/ISO-OSM 100 ML IV PRN ×6 (02:13→20:29)
[2020-11-01] MEDS: INSULIN LISPRO 100 UNITS/ML SQ PRN ×3 (02:56→21:00)
[2020-11-01] MEDS: PIPERACILLIN/TAZO 3.375 GM/D5W 50 ML IV SCH ×4 (03:21→20:10)
[2020-11-01] MEDS: ACETYLCYSTEINE 10% 100 MG/ML 4 ML NEB SOLUTION NEB SCH ×4 (03:55→20:59)
[2020-11-01] MEDS: IPRATROPIUM BROMIDE 0.5 MG/2.5 ML NEB SOLUTION NEB SCH ×4 (03:55→20:59)
[2020-11-01] MEDS: ALBUTEROL SULFATE 2.5 MG/0.5 ML NEB SOLUTION NEB SCH ×4 (03:55→20:59)
[2020-11-01] MEDS: KETAMINE HCL 500 MG in DEXTROSE 5%-WATER 490 ML IV PRN (04:30)
[2020-11-01] MEDS: WATER IV PRN ×4 (04:47→20:29)
[2020-11-01] MEDS: FENTANYL CITRATE IV PRN ×4 (04:47→20:29)
[2020-11-01 07:09] LABS: GLUCOMETER DEV NAME(LOC) AHU.; GLUCOSE,POINT OF CARE 143 MG/DL (70-110)
[2020-11-01] MEDS: AMINO ACIDS/PROTEIN HYDROLYS 30 ML TUBE PO SCH ×3 (08:00→17:39)
[2020-11-01] MEDS: DIAZEPAM 5 MG TABLET NG PRN (09:51)
[2020-11-01] MEDS: OxyCODONE HCL 5 MG IR TABLET NG PRN (09:51)
[2020-11-01] MEDS: SODIUM CHLORIDE 1 GM TABLET PO SCH ×3 (09:52→20:53)
[2020-11-01] MEDS: DEXAMETHASONE SOD PHOS 4 MG/ML VIAL IVP SCH (09:52)
[2020-11-01] MEDS: PANTOPRAZOLE SODIUM 40 MG/VIAL IVP SCH ×2 (09:52→20:58)
[2020-11-01] MEDS: ENOXAPARIN SODIUM 80 MG/0.8 ML PF SYRINGE SQ SCH ×2 (09:55→20:53)
[2020-11-01] MEDS: INSULIN GLARGINE,HUM.REC.ANLOG 100 UNITS/ML SQ SCH ×2 (10:47→20:59)
[2020-11-01 11:02] LABS: BASOPHILS % (AUTO) 0.8 % (0.0-2.0); EOSINOPHILS % (AUTO) 2.8 % (1.0-6.0); HEMOGLOBIN 10.4 g/dL (13.5-17.5); LYMPHOCYTES # (AUTO) 1.5 K/uL (1.0-4.8); MEAN CORPUSCULAR HGB CONC 32.4 G/dL (31.0-37.0); MEAN CORPUSCULAR VOLUME 89 fL (80-100); MONOCYTES # (AUTO) 1.2 K/uL (0.1-1.0); MONOCYTES % (AUTO) 10.2 % (2.0-9.0); NEUTROPHILS % (AUTO) 74.2 % (40.0-70.0); PLATELET COUNT (AUTO) 307 K/uL (150-450); RED BLOOD CELL COUNT(AUTO) 3.58 MIL/uL (4.50-5.90); RED CELL DISTRIBUTION WIDTH 16.7 % (11.5-14.5)
[2020-11-01] MEDS: MIDAZOLAM HCL 100 MG in DEXTROSE 5%-WATER 180 ML IV PRN (11:07)
[2020-11-01 11:38] LABS: ANION GAP 9 mmol/L (8-16); CALCIUM, TOTAL 8.8 mg/dL (8.8-10.5); CARBON DIOXIDE 33 mmol/L (22-29); CHLORIDE 95 mmol/L (98-107); CREATININE 0.49 mg/dL (0.60-1.30); GLOMERULAR FILTR. RATE CALC > 60 mL/min (>60); GLUCOSE,RANDOM 110 mg/dL (70-110); PHOSPHORUS 4.3 mg/dL (2.5-4.9); POTASSIUM 3.6 mmol/L (3.5-5.1); SODIUM SERUM 137 mmol/L (136-145); UREA NITROGEN, BLOOD 23 mg/dL (7-18)
[2020-11-01] MEDS ORDERED: DIAZEPAM 5 MG TABLET NG PRN (13:00)
[2020-11-01] MEDS ORDERED: OxyCODONE HCL 5 MG IR TABLET NG PRN (13:00)
[2020-11-01] MEDS: NOREPINEPHRINE 4 MG/D5%-WATER 250 ML IV PRN (17:18)
[2020-11-01] MEDS: DAPTOMYCIN 500 MG in SODIUM CHLORIDE 0.9% 50 ML IV SCH (18:15)
[2020-11-01 18:50] LABS: GLUCOMETER DEV NAME(LOC) AHU.; GLUCOSE,POINT OF CARE 192 MG/DL (70-110)
[2020-11-01 18:59] LABS: GLUCOMETER DEV NAME(LOC) AHU.; GLUCOSE,POINT OF CARE 235 MG/DL (70-110)
[2020-11-01] MEDS: CASPOFUNGIN ACETATE 50 MG in SODIUM CHLORIDE 0.9% 250 ML IV SCH (19:15)
[2020-11-01] MEDS: DIAZEPAM 5 MG TABLET NG SCH (20:55)
[2020-11-01] MEDS: OxyCODONE HCL 5 MG IR TABLET NG SCH ×2 (20:57→21:01)
[2020-11-02] VITALS (18 sets, daily range): BP systolic 91–120; BP diastolic 48–95
[2020-11-02] MEDS: MIDAZOLAM HCL 100 MG in DEXTROSE 5%-WATER 180 ML IV PRN ×2 (00:06→11:50)
[2020-11-02 00:13] LABS: GLUCOMETER DEV NAME(LOC) AHU.; GLUCOSE,POINT OF CARE 178 MG/DL (70-110)
[2020-11-02] MEDS: PROPOFOL 1000 MG/ISO-OSM 100 ML IV PRN ×6 (01:28→22:30)
[2020-11-02] MEDS: WATER IV PRN ×5 (01:29→23:45)
[2020-11-02] MEDS: FENTANYL CITRATE IV PRN ×5 (01:29→23:45)
[2020-11-02] MEDS: CISATRACURIUM BESYLATE 100 MG in DEXTROSE 5%-WATER 240 ML IV PRN ×3 (01:30→13:38)
[2020-11-02] MEDS: PIPERACILLIN/TAZO 3.375 GM/D5W 50 ML IV SCH ×5 (03:00→22:11)
[2020-11-02] MEDS: ALBUTEROL SULFATE 2.5 MG/0.5 ML NEB SOLUTION NEB SCH ×4 (03:18→19:56)
[2020-11-02] MEDS: IPRATROPIUM BROMIDE 0.5 MG/2.5 ML NEB SOLUTION NEB SCH ×4 (03:18→19:56)
[2020-11-02] MEDS: ACETYLCYSTEINE 10% 100 MG/ML 4 ML NEB SOLUTION NEB SCH ×4 (03:18→19:30)
[2020-11-02 05:58] LABS: BASOPHILS % (AUTO) 0.6 % (0.0-2.0); HEMATOCRIT 31.6 % (41-53); HEMOGLOBIN 10.3 g/dL (13.5-17.5); LYMPHOCYTES # (AUTO) 1.7 K/uL (1.0-4.8); LYMPHOCYTES % (AUTO) 16.7 % (22.0-44.0); MEAN CORPUSCULAR HEMOGLOBIN 29.2 pg (26.0-34.0); MEAN CORPUSCULAR HGB CONC 32.7 G/dL (31.0-37.0); MEAN CORPUSCULAR VOLUME 89 fL (80-100); MONOCYTES # (AUTO) 1.2 K/uL (0.1-1.0); MONOCYTES % (AUTO) 11.5 % (2.0-9.0); NEUTROPHILS # (AUTO) 6.7 K/uL (1.8-7.7); NEUTROPHILS % (AUTO) 67.2 % (40.0-70.0); PLATELET COUNT (AUTO) 270 K/uL (150-450); RED BLOOD CELL COUNT(AUTO) 3.53 MIL/uL (4.50-5.90); RED CELL DISTRIBUTION WIDTH 16.4 % (11.5-14.5)
[2020-11-02] MEDS: KETAMINE HCL 500 MG in DEXTROSE 5%-WATER 490 ML IV PRN (06:18)
[2020-11-02 06:21] LABS: ALANINE AMINOTRANSFERASE 34 U/L (12-78); ALBUMIN 2.3 g/dL (3.4-5.0); ALKALINE PHOSPHATASE 85 U/L (46-116); ANION GAP 5 mmol/L (8-16); ASPARTATE AMINOTRANSFERASE 17 U/L (15-37); BILIRUBIN,TOTAL 0.3 mg/dL (0.1-1.0); C-REACTIVE PROTEIN QUANT 5.19 mg/dL (0.00-0.30); CALCIUM, TOTAL 8.4 mg/dL (8.8-10.5); CARBON DIOXIDE 34 mmol/L (22-29); CHLORIDE 96 mmol/L (98-107); CREATININE 0.46 mg/dL (0.60-1.30); GLOMERULAR FILTR. RATE CALC > 60 mL/min (>60); GLUCOSE,RANDOM 157 mg/dL (70-110); PHOSPHORUS 4.7 mg/dL (2.5-4.9); POTASSIUM 3.5 mmol/L (3.5-5.1); SODIUM SERUM 135 mmol/L (136-145); TOTAL PROTEIN, SERUM 6.5 g/dL (6.4-8.2); UREA NITROGEN, BLOOD 21 mg/dL (7-18)
[2020-11-02 06:52] LABS: GLUCOMETER DEV NAME(LOC) AHU.; GLUCOSE,POINT OF CARE 145 MG/DL (70-110)
[2020-11-02] MEDS: INSULIN LISPRO 100 UNITS/ML SQ PRN ×3 (06:55→18:37)
[2020-11-02] MEDS: ENOXAPARIN SODIUM 80 MG/0.8 ML PF SYRINGE SQ SCH ×2 (08:09→22:08)
[2020-11-02] MEDS: PANTOPRAZOLE SODIUM 40 MG/VIAL IVP SCH ×2 (08:09→22:11)
[2020-11-02] MEDS: DEXAMETHASONE SOD PHOS 4 MG/ML VIAL IVP SCH (08:09)
[2020-11-02] MEDS: OxyCODONE HCL 5 MG IR TABLET NG SCH ×4 (08:10→22:10)
[2020-11-02] MEDS: SODIUM CHLORIDE 1 GM TABLET PO SCH ×3 (08:10→22:10)
[2020-11-02] MEDS: DIAZEPAM 5 MG TABLET NG SCH ×3 (08:10→22:10)
[2020-11-02] MEDS: INSULIN GLARGINE,HUM.REC.ANLOG 100 UNITS/ML SQ SCH ×2 (08:13→22:10)
[2020-11-02] MEDS: AMINO ACIDS/PROTEIN HYDROLYS 30 ML TUBE PO SCH ×3 (08:14→17:39)
[2020-11-02 12:38] LABS: GLUCOMETER DEV NAME(LOC) AHU.; GLUCOSE,POINT OF CARE 231 MG/DL (70-110)
[2020-11-02] MEDS: DAPTOMYCIN 500 MG in SODIUM CHLORIDE 0.9% 50 ML IV SCH (17:39)
[2020-11-02 18:28] LABS: GLUCOMETER DEV NAME(LOC) AHU.; GLUCOSE,POINT OF CARE 240 MG/DL (70-110)
[2020-11-02] MEDS: CASPOFUNGIN ACETATE 50 MG in SODIUM CHLORIDE 0.9% 250 ML IV SCH (18:41)
[2020-11-02] MEDS ORDERED: SODIUM CHLORIDE 0.9% 250 ML IV ONE (19:17)
[2020-11-02 20:33] LABS: GLUCOMETER DEV NAME(LOC) AHU.; GLUCOSE,POINT OF CARE 205 MG/DL (70-110)
[2020-11-03] VITALS: BP 151/74
[2020-11-03 00:23] LABS: GLUCOMETER DEV NAME(LOC) AHU.; GLUCOSE,POINT OF CARE 187 MG/DL (70-110)
[2020-11-03] MEDS: INSULIN LISPRO 100 UNITS/ML SQ PRN (00:26)
[2020-11-03] MEDS: CISATRACURIUM BESYLATE 100 MG in DEXTROSE 5%-WATER 240 ML IV PRN ×4 (00:28→12:13)
[2020-11-03] MEDS: MIDAZOLAM HCL 100 MG in DEXTROSE 5%-WATER 180 ML IV PRN (01:07)
[2020-11-03] MEDS: PROPOFOL 1000 MG/ISO-OSM 100 ML IV PRN ×4 (01:35→19:41)
[2020-11-03] MEDS: KETAMINE HCL 500 MG in DEXTROSE 5%-WATER 490 ML IV PRN (02:35)
[2020-11-03] MEDS: ALBUTEROL SULFATE 2.5 MG/0.5 ML NEB SOLUTION NEB SCH ×4 (03:17→20:19)
[2020-11-03] MEDS: IPRATROPIUM BROMIDE 0.5 MG/2.5 ML NEB SOLUTION NEB SCH ×4 (03:17→20:19)
[2020-11-03] MEDS: ACETYLCYSTEINE 10% 100 MG/ML 4 ML NEB SOLUTION NEB SCH ×4 (03:17→20:19)
[2020-11-03] MEDS: PIPERACILLIN/TAZO 3.375 GM/D5W 50 ML IV SCH ×4 (03:41→20:42)
[2020-11-03 04:00] VITALS: BP 101/49
[2020-11-03] MEDS: WATER IV PRN ×3 (05:04→21:24)
[2020-11-03] MEDS: FENTANYL CITRATE IV PRN ×3 (05:04→21:24)
[2020-11-03 05:49] LABS: GLUCOMETER DEV NAME(LOC) AHU.; GLUCOSE,POINT OF CARE 147 MG/DL (70-110)
[2020-11-03 06:50] LABS: ANION GAP 5 mmol/L (8-16); CALCIUM, TOTAL 8.3 mg/dL (8.8-10.5); CARBON DIOXIDE 36 mmol/L (22-29); CHLORIDE 101 mmol/L (98-107); CHOL/HDL RATIO 8.9 (4.2-7.3); CHOLESTEROL 250 mg/dL (131-200); CREATININE 0.48 mg/dL (0.60-1.30); GLOMERULAR FILTR. RATE CALC > 60 mL/min (>60); GLUCOSE,RANDOM 160 mg/dL (70-110); HDL CHOLESTEROL 28 mg/dL (40-60); LDL CHOL (CALC.) 174 mg/dL (0-130); PHOSPHORUS 3.3 mg/dL (2.5-4.9); SODIUM SERUM 142 mmol/L (136-145); TRIGLYCERIDES 240 mg/dL (15-150); UREA NITROGEN, BLOOD 19 mg/dL (7-18)
[2020-11-03 08:00] VITALS: BP 120/52
[2020-11-03] MEDS: PANTOPRAZOLE SODIUM 40 MG/VIAL IVP SCH ×2 (09:15→20:37)
[2020-11-03] MEDS: DIAZEPAM 5 MG TABLET NG SCH ×3 (09:17→20:37)
[2020-11-03] MEDS: DEXAMETHASONE SOD PHOS 4 MG/ML VIAL IVP SCH (09:17)
[2020-11-03] MEDS: OxyCODONE HCL 5 MG IR TABLET NG SCH ×4 (09:18→20:37)
[2020-11-03] MEDS: AMINO ACIDS/PROTEIN HYDROLYS 30 ML TUBE PO SCH ×3 (09:21→17:49)
[2020-11-03] MEDS: SODIUM CHLORIDE 1 GM TABLET PO SCH (09:22)
[2020-11-03] MEDS: ENOXAPARIN SODIUM 80 MG/0.8 ML PF SYRINGE SQ SCH ×2 (09:22→20:37)
[2020-11-03] MEDS: INSULIN GLARGINE,HUM.REC.ANLOG 100 UNITS/ML SQ SCH ×2 (09:24→20:42)
[2020-11-03 12:00] VITALS: BP 149/81
[2020-11-03] MEDS: NOREPINEPHRINE 4 MG/D5%-WATER 250 ML IV PRN (12:12)
[2020-11-03 16:00] VITALS: BP 151/86
[2020-11-03] MEDS: DAPTOMYCIN 500 MG in SODIUM CHLORIDE 0.9% 50 ML IV SCH (17:49)
[2020-11-03] MEDS: CASPOFUNGIN ACETATE 50 MG in SODIUM CHLORIDE 0.9% 250 ML IV SCH (18:50)
[2020-11-03 20:00] VITALS: BP 97/41
[2020-11-03 20:47] LABS: GLUCOMETER DEV NAME(LOC) AHU.; GLUCOSE,POINT OF CARE 200 MG/DL (70-110)
[2020-11-03 20:48] LABS: GLUCOMETER DEV NAME(LOC) AHU.; GLUCOSE,POINT OF CARE 191 MG/DL (70-110)
[2020-11-03 20:54] LABS: GLUCOMETER DEV NAME(LOC) AHU.; GLUCOSE,POINT OF CARE 178 MG/DL (70-110)
[2020-11-03] MEDS ORDERED: SODIUM CHLORIDE 1 GM TABLET PO SCH (21:00)
[2020-11-04] MEDS: MIDAZOLAM HCL 100 MG in DEXTROSE 5%-WATER 180 ML IV PRN ×3 (01:56→16:06)
[2020-11-04] MEDS ORDERED: SODIUM CHLORIDE 0.9% 250 ML IV ONE (01:58)
[2020-11-04] MEDS: PIPERACILLIN/TAZO 3.375 GM/D5W 50 ML IV SCH ×4 (02:31→20:13)
[2020-11-04] MEDS: FENTANYL CITRATE IV PRN ×4 (02:31→18:13)
[2020-11-04] MEDS: WATER IV PRN ×4 (02:31→18:13)
[2020-11-04] MEDS: POTASSIUM CHL 10 MEQ/WATER 50 ML IV PRN ×6 (02:32→10:26)
[2020-11-04] MEDS: PROPOFOL 1000 MG/ISO-OSM 100 ML IV PRN ×7 (02:32→22:23)
[2020-11-04] MEDS: ACETAMINOPHEN 325 MG TABLET PO PRN (02:35)
[2020-11-04] MEDS: IPRATROPIUM BROMIDE 0.5 MG/2.5 ML NEB SOLUTION NEB SCH ×4 (03:44→20:04)
[2020-11-04] MEDS: ALBUTEROL SULFATE 2.5 MG/0.5 ML NEB SOLUTION NEB SCH ×4 (03:45→20:04)
[2020-11-04] MEDS: ACETYLCYSTEINE 10% 100 MG/ML 4 ML NEB SOLUTION NEB SCH ×4 (03:45→20:04)
[2020-11-04 04:00] VITALS: BP 161/91
[2020-11-04 04:25] LABS: APPEARANCE,URINE CLEAR (CLEAR); BILIRUBIN,URINE NEGATIVE (NEGATIVE); GLUCOSE, URINE (UA) NEGATIVE (NEGATIVE); KETONES,URINE NEGATIVE (NEGATIVE); LEUKOCYTE ESTERASE ,URINE NEGATIVE (NEGATIVE); NITRATE,URINE NEGATIVE (NEGATIVE); OCCULT BLOOD,URINE LARGE (NEGATIVE); PH,URINE 6.5 (5.0-8.0); PROTEIN,URINE POS 1+ (NEGATIVE); UROBILINOGEN,URINE 0.2 mg/dL (<=1.0)
[2020-11-04 04:38] LABS: RBC,URINE 51-100 /HPF (0-2)
[2020-11-04 04:39] LABS: BACTERIA,URINE Few /HPF (None Seen); WBC,URINE 0-2 /HPF (0-5)
[2020-11-04 06:27] LABS: ANION GAP 7 mmol/L (8-16); CALCIUM, TOTAL 8.9 mg/dL (8.8-10.5); CARBON DIOXIDE 35 mmol/L (22-29); CHLORIDE 97 mmol/L (98-107); CREATININE 0.56 mg/dL (0.60-1.30); GLOMERULAR FILTR. RATE CALC > 60 mL/min (>60); GLUCOSE,RANDOM 85 mg/dL (70-110); PHOSPHORUS 3.2 mg/dL (2.5-4.9); POTASSIUM 3.4 mmol/L (3.5-5.1); SODIUM SERUM 139 mmol/L (136-145); UREA NITROGEN, BLOOD 19 mg/dL (7-18)
[2020-11-04 08:00] VITALS: BP 158/94
[2020-11-04] MEDS: DIAZEPAM 5 MG TABLET NG SCH ×3 (08:13→20:19)
[2020-11-04] MEDS: OxyCODONE HCL 5 MG IR TABLET NG SCH ×4 (08:14→20:13)
[2020-11-04] MEDS: DEXAMETHASONE SOD PHOS 4 MG/ML VIAL IVP SCH (08:14)
[2020-11-04] MEDS: PANTOPRAZOLE SODIUM 40 MG/VIAL IVP SCH ×2 (08:14→20:19)
[2020-11-04] MEDS: INSULIN GLARGINE,HUM.REC.ANLOG 100 UNITS/ML SQ SCH ×2 (08:16→20:19)
[2020-11-04] MEDS: AMINO ACIDS/PROTEIN HYDROLYS 30 ML TUBE PO SCH ×3 (08:16→17:48)
[2020-11-04 08:45] LABS: GLUCOSE,POINT OF CARE 82 MG/DL (70-110)
[2020-11-04] MEDS: ENOXAPARIN SODIUM 80 MG/0.8 ML PF SYRINGE SQ SCH ×2 (10:22→20:13)
[2020-11-04] MEDS: ACETAMINOPHEN 650 MG RECTAL SUPPOSITORY PR PRN ×2 (10:23→21:31)
[2020-11-04] MEDS: KETAMINE HCL 500 MG in DEXTROSE 5%-WATER 490 ML IV PRN (10:24)
[2020-11-04] MEDS: INSULIN LISPRO 100 UNITS/ML SQ PRN ×2 (11:23→17:56)
[2020-11-04 11:58] LABS: GLUCOMETER DEV NAME(LOC) 5S.2B; GLUCOSE,POINT OF CARE 118 MG/DL (70-110)
[2020-11-04 12:00] VITALS: BP 166/97
[2020-11-04 12:10] LABS: GLUCOSE,POINT OF CARE 191 MG/DL (70-110)
[2020-11-04] MEDS: DEXMEDETOMIDINE HCL 200 MCG in SODIUM CHLORIDE 0.9% 48 ML IV PRN ×3 (12:22→23:19)
[2020-11-04] MEDS: LORazepam 2 MG/ML VIAL IVP PRN ×3 (13:29→23:19)
[2020-11-04 15:53] LABS: ABG A-A DIFF O2 325.8 mmHg (10-20.0); ABG CARBOXYHEMOGLOBIN 1.1 % (0.0-1.5); ABG HCO3 36.1 mmol/L (22.0-26.0); ABG METHEMOGLOBIN 0.3 % (0.0-1.5); ABG OXYGEN CONTENT 12.8 mL/dL (15.0-23.0); ABG OXYGEN SATURATION 94.5 % (95.0-98.0); ABG OXYHEMOGLOBIN 93.2 % (94.0-100.0); ABG PCO2 56 mmHg (35-45); ABG PH 7.451 (7.35-7.450); ABG TOTAL HEMOGLOBIN 9.7 G/dL (12.0-18.0); PO2, ARTERIAL BG 75.1 mmHg (84.0-92.0); SOURCE, BLOOD GAS ARTERIAL; TEMPERATURE, FAHRENHEIT, BG 100.4 FAHREN (96.0-98.6)
[2020-11-04 15:58] LABS: O2 DEVICE,BLOOD GAS VENTILATOR (ROOM AIR); SITE, BLOOD GAS LFT RADIAL
[2020-11-04 15:59] LABS: INSPIRATORY TIME, BG 0.9 SEC; PEEP,BG 10 cm H2O; SPONTANEOUS VT, BG 552 ml; VENT MODE, BG Press. Control Vent (ROOM AIR)
[2020-11-04 16:00] VITALS: BP 93/57
[2020-11-04] MEDS: CASPOFUNGIN ACETATE 50 MG in SODIUM CHLORIDE 0.9% 250 ML IV SCH (18:12)
[2020-11-04] MEDS: DAPTOMYCIN 500 MG in SODIUM CHLORIDE 0.9% 50 ML IV SCH (18:12)
[2020-11-04 18:26] LABS: GLUCOSE,POINT OF CARE 184 MG/DL (70-110)
[2020-11-04 20:00] VITALS: BP 142/81
[2020-11-04 20:48] LABS: GLUCOSE,POINT OF CARE 136 MG/DL (70-110)
[2020-11-05] VITALS: BP 153/89
[2020-11-05 00:14] LABS: GLUCOSE,POINT OF CARE 94 MG/DL (70-110)
[2020-11-05] MEDS: PROPOFOL 1000 MG/ISO-OSM 100 ML IV PRN ×6 (02:20→23:27)
[2020-11-05] MEDS: WATER IV PRN ×4 (02:22→17:17)
[2020-11-05] MEDS: FENTANYL CITRATE IV PRN ×4 (02:22→17:17)
[2020-11-05] MEDS: PIPERACILLIN/TAZO 3.375 GM/D5W 50 ML IV SCH ×2 (02:24→08:00)
[2020-11-05] MEDS: ACETYLCYSTEINE 10% 100 MG/ML 4 ML NEB SOLUTION NEB SCH ×4 (03:41→19:57)
[2020-11-05] MEDS: IPRATROPIUM BROMIDE 0.5 MG/2.5 ML NEB SOLUTION NEB SCH ×4 (03:41→19:57)
[2020-11-05] MEDS: ALBUTEROL SULFATE 2.5 MG/0.5 ML NEB SOLUTION NEB SCH ×4 (03:42→19:57)
[2020-11-05] MEDS: MIDAZOLAM HCL 100 MG in DEXTROSE 5%-WATER 180 ML IV PRN ×2 (03:44→15:33)
[2020-11-05] MEDS: ACETAMINOPHEN 650 MG RECTAL SUPPOSITORY PR PRN ×2 (03:47→12:15)
[2020-11-05 04:00] VITALS: BP 96/64
[2020-11-05 05:29] LABS: BASOPHILS % (AUTO) 0.6 % (0.0-2.0); HEMATOCRIT 32.6 % (41-53); HEMOGLOBIN 10.6 g/dL (13.5-17.5); LYMPHOCYTES % (AUTO) 17.4 % (22.0-44.0); MEAN CORPUSCULAR HEMOGLOBIN 29.3 pg (26.0-34.0); MEAN CORPUSCULAR HGB CONC 32.5 G/dL (31.0-37.0); MEAN CORPUSCULAR VOLUME 90 fL (80-100); MONOCYTES # (AUTO) 0.8 K/uL (0.1-1.0); MONOCYTES % (AUTO) 7.2 % (2.0-9.0); NEUTROPHILS # (AUTO) 8.3 K/uL (1.8-7.7); NEUTROPHILS % (AUTO) 70.8 % (40.0-70.0); PLATELET COUNT (AUTO) 284 K/uL (150-450); RED BLOOD CELL COUNT(AUTO) 3.62 MIL/uL (4.50-5.90)
[2020-11-05] MEDS ORDERED: SODIUM CHLORIDE 0.9% 250 ML IV ONE (05:34)
[2020-11-05 05:48] LABS: ALANINE AMINOTRANSFERASE 39 U/L (12-78); ALBUMIN 2.4 g/dL (3.4-5.0); ALKALINE PHOSPHATASE 97 U/L (46-116); ANION GAP 6 mmol/L (8-16); ASPARTATE AMINOTRANSFERASE 37 U/L (15-37); BILIRUBIN,TOTAL 0.5 mg/dL (0.1-1.0); C-REACTIVE PROTEIN QUANT 10.65 mg/dL (0.00-0.30); CALCIUM, TOTAL 9.1 mg/dL (8.8-10.5); CARBON DIOXIDE 35 mmol/L (22-29); CHLORIDE 98 mmol/L (98-107); CREATININE 0.61 mg/dL (0.60-1.30); GLOMERULAR FILTR. RATE CALC > 60 mL/min (>60); GLUCOSE,RANDOM 107 mg/dL (70-110); POTASSIUM 3.5 mmol/L (3.5-5.1); SODIUM SERUM 139 mmol/L (136-145); TOTAL PROTEIN, SERUM 6.8 g/dL (6.4-8.2); UREA NITROGEN, BLOOD 21 mg/dL (7-18)
[2020-11-05] MEDS: KETAMINE HCL 500 MG in DEXTROSE 5%-WATER 490 ML IV PRN (06:17)
[2020-11-05 08:00] VITALS: BP 133/77
[2020-11-05] MEDS: POTASSIUM CHL 10 MEQ/WATER 50 ML IV PRN ×3 (08:00→08:07)
[2020-11-05] MEDS: ENOXAPARIN SODIUM 80 MG/0.8 ML PF SYRINGE SQ SCH ×2 (08:01→20:20)
[2020-11-05] MEDS: DIAZEPAM 5 MG TABLET NG SCH ×3 (08:02→20:08)
[2020-11-05] MEDS: OxyCODONE HCL 5 MG IR TABLET NG SCH ×4 (08:02→20:09)
[2020-11-05] MEDS: LORazepam 2 MG/ML VIAL IVP PRN (08:02)
[2020-11-05] MEDS: PANTOPRAZOLE SODIUM 40 MG/VIAL IVP SCH ×2 (08:02→20:19)
[2020-11-05] MEDS: DEXAMETHASONE SOD PHOS 4 MG/ML VIAL IVP SCH (08:02)
[2020-11-05] MEDS: AMINO ACIDS/PROTEIN HYDROLYS 30 ML TUBE PO SCH ×3 (08:04→16:58)
[2020-11-05] MEDS: INSULIN GLARGINE,HUM.REC.ANLOG 100 UNITS/ML SQ SCH ×2 (08:04→20:20)
[2020-11-05 12:00] VITALS: BP 99/62
[2020-11-05] MEDS: INSULIN LISPRO 100 UNITS/ML SQ PRN ×2 (12:05→17:23)
[2020-11-05] MEDS: DEXMEDETOMIDINE HCL 200 MCG in SODIUM CHLORIDE 0.9% 48 ML IV PRN ×2 (13:32→17:16)
[2020-11-05] MEDS ORDERED: *CLINICAL-MEROPENEM DOSING CLINICAL ONE (14:00)
[2020-11-05] MEDS: MEROPENEM 1 GM in SODIUM CHLORIDE 0.9% 100 ML IV SCH ×2 (15:34→23:27)
[2020-11-05 16:00] VITALS: BP 82/54
[2020-11-05] MEDS: DAPTOMYCIN 500 MG in SODIUM CHLORIDE 0.9% 50 ML IV SCH (17:15)
[2020-11-05] MEDS: CASPOFUNGIN ACETATE 50 MG in SODIUM CHLORIDE 0.9% 250 ML IV SCH (17:15)
[2020-11-05 20:00] VITALS: BP 131/71
[2020-11-05 20:29] LABS: GLUCOSE,POINT OF CARE 186 MG/DL (70-110)
[2020-11-05 20:29] LABS: GLUCOSE,POINT OF CARE 181 MG/DL (70-110)
[2020-11-05 22:20] LABS: GLUCOSE,POINT OF CARE 150 MG/DL (70-110)
[2020-11-06 00:19] VITALS: BP 96/56
[2020-11-06 01:21] LABS: GLUCOSE,POINT OF CARE 112 MG/DL (70-110)
[2020-11-06] MEDS: FENTANYL CITRATE IV PRN ×4 (03:24→18:01)
[2020-11-06] MEDS: WATER IV PRN ×4 (03:24→18:01)
[2020-11-06] MEDS: MIDAZOLAM HCL 100 MG in DEXTROSE 5%-WATER 180 ML IV PRN ×2 (03:25→18:00)
[2020-11-06] MEDS: DEXMEDETOMIDINE HCL 200 MCG in SODIUM CHLORIDE 0.9% 48 ML IV PRN ×6 (03:26→22:19)
[2020-11-06] MEDS: IPRATROPIUM BROMIDE 0.5 MG/2.5 ML NEB SOLUTION NEB SCH (03:43)
[2020-11-06] MEDS: ACETYLCYSTEINE 10% 100 MG/ML 4 ML NEB SOLUTION NEB SCH (03:43)
[2020-11-06] MEDS: ALBUTEROL SULFATE 2.5 MG/0.5 ML NEB SOLUTION NEB SCH (03:43)
[2020-11-06] MEDS: PROPOFOL 1000 MG/ISO-OSM 100 ML IV PRN ×5 (04:44→20:28)
[2020-11-06 05:02] VITALS: BP 123/73
[2020-11-06 05:29] LABS: BASOPHILS % (AUTO) 0.7 % (0.0-2.0); EOSINOPHILS % (AUTO) 3.9 % (1.0-6.0); HEMATOCRIT 27.6 % (41-53); HEMOGLOBIN 9.1 g/dL (13.5-17.5); LYMPHOCYTES # (AUTO) 1.5 K/uL (1.0-4.8); LYMPHOCYTES % (AUTO) 15.3 % (22.0-44.0); MEAN CORPUSCULAR HEMOGLOBIN 29.7 pg (26.0-34.0); MEAN CORPUSCULAR VOLUME 90 fL (80-100); MONOCYTES # (AUTO) 0.6 K/uL (0.1-1.0); MONOCYTES % (AUTO) 6.1 % (2.0-9.0); NEUTROPHILS # (AUTO) 7.3 K/uL (1.8-7.7); PLATELET COUNT (AUTO) 271 K/uL (150-450); RED BLOOD CELL COUNT(AUTO) 3.06 MIL/uL (4.50-5.90); RED CELL DISTRIBUTION WIDTH 17.4 % (11.5-14.5)
[2020-11-06 05:36] LABS: ANION GAP 7 mmol/L (8-16); CALCIUM, TOTAL 8.7 mg/dL (8.8-10.5); CARBON DIOXIDE 34 mmol/L (22-29); CHLORIDE 101 mmol/L (98-107); CREATININE 0.46 mg/dL (0.60-1.30); GLOMERULAR FILTR. RATE CALC > 60 mL/min (>60); GLUCOSE,RANDOM 129 mg/dL (70-110); POTASSIUM 3.5 mmol/L (3.5-5.1); SODIUM SERUM 142 mmol/L (136-145); UREA NITROGEN, BLOOD 21 mg/dL (7-18)
[2020-11-06] MEDS: INSULIN LISPRO 100 UNITS/ML SQ PRN ×3 (05:47→17:58)
[2020-11-06 07:08] LABS: GLUCOSE,POINT OF CARE 132 MG/DL (70-110)
[2020-11-06 08:00] VITALS: BP 80/48
[2020-11-06] MEDS ORDERED: ALBUTEROL SULFATE 2.5 MG/0.5 ML NEB SOLUTION NEB PRN (08:00)
[2020-11-06] MEDS ORDERED: IPRATROPIUM BROMIDE 0.5 MG/2.5 ML NEB SOLUTION NEB PRN (08:00)
[2020-11-06] MEDS ORDERED: ACETYLCYSTEINE 10% 100 MG/ML 4 ML NEB SOLUTION NEB PRN (08:00)
[2020-11-06] MEDS: MEROPENEM 1 GM in SODIUM CHLORIDE 0.9% 100 ML IV SCH ×2 (08:03→15:37)
[2020-11-06] MEDS: ENOXAPARIN SODIUM 80 MG/0.8 ML PF SYRINGE SQ SCH ×2 (08:03→20:28)
[2020-11-06] MEDS: INSULIN GLARGINE,HUM.REC.ANLOG 100 UNITS/ML SQ SCH ×2 (08:03→20:30)
[2020-11-06] MEDS: DIAZEPAM 5 MG TABLET NG SCH ×3 (08:04→20:29)
[2020-11-06] MEDS: OxyCODONE HCL 5 MG IR TABLET NG SCH ×4 (08:04→20:29)
[2020-11-06] MEDS: DEXAMETHASONE SOD PHOS 4 MG/ML VIAL IVP SCH (08:05)
[2020-11-06] MEDS: POTASSIUM CHL 10 MEQ/WATER 50 ML IV PRN ×3 (08:06→08:10)
[2020-11-06] MEDS: AMINO ACIDS/PROTEIN HYDROLYS 30 ML TUBE PO SCH ×3 (08:08→18:00)
[2020-11-06] MEDS: NOREPINEPHRINE 4 MG/D5%-WATER 250 ML IV PRN (08:09)
[2020-11-06] MEDS: PANTOPRAZOLE SODIUM 40 MG/VIAL IVP SCH ×2 (09:06→20:28)
[2020-11-06] MEDS: KETAMINE HCL 500 MG in DEXTROSE 5%-WATER 490 ML IV PRN (10:16)
[2020-11-06] MEDS: LORazepam 2 MG/ML VIAL IVP PRN (11:05)
[2020-11-06 12:00] VITALS: BP 135/82
[2020-11-06] MEDS ORDERED: SODIUM CHLORIDE 0.9% 1,000 ML ONE (13:03)
[2020-11-06] MEDS ORDERED: POTASSIUM CHLORIDE 10% 40 MEQ/30 ML LIQUID UDCUP NG ONE (15:00)
[2020-11-06 16:00] VITALS: BP 113/57
[2020-11-06] MEDS: DAPTOMYCIN 500 MG in SODIUM CHLORIDE 0.9% 50 ML IV SCH (17:59)
[2020-11-06] MEDS: CASPOFUNGIN ACETATE 50 MG in SODIUM CHLORIDE 0.9% 250 ML IV SCH (18:00)
[2020-11-06 18:01] LABS: GLUCOSE,POINT OF CARE 188 MG/DL (70-110)
[2020-11-06 20:00] VITALS: BP 111/68
[2020-11-06] MEDS ORDERED: SODIUM CHLORIDE 0.9% 250 ML IV ONE (20:06)
[2020-11-06] MEDS: DOCUSATE SODIUM 100 MG/10 ML LIQUID UDCUP GT SCH (20:28)
[2020-11-06 22:36] LABS: GLUCOSE,POINT OF CARE 153 MG/DL (70-110)
[2020-11-07] VITALS: BP 114/79
[2020-11-07] MEDS: WATER IV PRN ×5 (00:13→20:22)
[2020-11-07] MEDS: FENTANYL CITRATE IV PRN ×5 (00:13→20:22)
[2020-11-07] MEDS: MEROPENEM 1 GM in SODIUM CHLORIDE 0.9% 100 ML IV SCH ×3 (00:13→15:40)
[2020-11-07 00:18] LABS: GLUCOSE,POINT OF CARE 106 MG/DL (70-110)
[2020-11-07] MEDS: LORazepam 2 MG/ML VIAL IVP PRN ×4 (00:22→10:51)
[2020-11-07] MEDS: PROPOFOL 1000 MG/ISO-OSM 100 ML IV PRN ×5 (01:39→21:58)
[2020-11-07 04:11] VITALS: BP 137/63
[2020-11-07] MEDS: DEXMEDETOMIDINE HCL 200 MCG in SODIUM CHLORIDE 0.9% 48 ML IV PRN (05:38)
[2020-11-07] MEDS: KETAMINE HCL 500 MG in DEXTROSE 5%-WATER 490 ML IV PRN (05:50)
[2020-11-07] MEDS: INSULIN LISPRO 100 UNITS/ML SQ PRN ×3 (06:25→20:25)
[2020-11-07 06:29] LABS: GLUCOSE,POINT OF CARE 145 MG/DL (70-110)
[2020-11-07 08:00] VITALS: BP 140/80
[2020-11-07 08:43] LABS: BASOPHILS % (AUTO) 0.8 % (0.0-2.0); EOSINOPHILS % (AUTO) 4.2 % (1.0-6.0); HEMATOCRIT 29.1 % (41-53); HEMOGLOBIN 9.5 g/dL (13.5-17.5); LYMPHOCYTES # (AUTO) 1.5 K/uL (1.0-4.8); LYMPHOCYTES % (AUTO) 14.7 % (22.0-44.0); MEAN CORPUSCULAR HEMOGLOBIN 29.4 pg (26.0-34.0); MEAN CORPUSCULAR HGB CONC 32.6 G/dL (31.0-37.0); MEAN CORPUSCULAR VOLUME 90 fL (80-100); MONOCYTES # (AUTO) 0.7 K/uL (0.1-1.0); NEUTROPHILS # (AUTO) 7.6 K/uL (1.8-7.7); NEUTROPHILS % (AUTO) 73.3 % (40.0-70.0); PLATELET COUNT (AUTO) 268 K/uL (150-450); RED BLOOD CELL COUNT(AUTO) 3.22 MIL/uL (4.50-5.90); RED CELL DISTRIBUTION WIDTH 16.4 % (11.5-14.5)
[2020-11-07] MEDS: POTASSIUM CHLORIDE 10% 40 MEQ/30 ML LIQUID UDCUP NG ONE ×2 (09:00→09:47)
[2020-11-07 09:01] LABS: ANION GAP 5 mmol/L (8-16); CALCIUM, TOTAL 8.5 mg/dL (8.8-10.5); CARBON DIOXIDE 35 mmol/L (22-29); CHLORIDE 100 mmol/L (98-107); CREATININE 0.43 mg/dL (0.60-1.30); GLOMERULAR FILTR. RATE CALC > 60 mL/min (>60); GLUCOSE,RANDOM 104 mg/dL (70-110); POTASSIUM 3.1 mmol/L (3.5-5.1); SODIUM SERUM 140 mmol/L (136-145); UREA NITROGEN, BLOOD 14 mg/dL (7-18)
[2020-11-07] MEDS: OxyCODONE HCL 5 MG IR TABLET NG SCH ×4 (09:45→20:21)
[2020-11-07] MEDS: DIAZEPAM 5 MG TABLET NG SCH ×3 (09:45→20:21)
[2020-11-07] MEDS: DEXAMETHASONE SOD PHOS 4 MG/ML VIAL IVP SCH (09:46)
[2020-11-07] MEDS: PANTOPRAZOLE SODIUM 40 MG/VIAL IVP SCH ×2 (09:46→20:20)
[2020-11-07] MEDS: AMINO ACIDS/PROTEIN HYDROLYS 30 ML TUBE PO SCH ×3 (09:47→17:30)
[2020-11-07] MEDS: ENOXAPARIN SODIUM 80 MG/0.8 ML PF SYRINGE SQ SCH ×2 (09:56→20:21)
[2020-11-07] MEDS: DOCUSATE SODIUM 100 MG/10 ML LIQUID UDCUP GT SCH ×2 (09:56→20:20)
[2020-11-07] MEDS: INSULIN GLARGINE,HUM.REC.ANLOG 100 UNITS/ML SQ SCH ×2 (10:03→20:25)
[2020-11-07] MEDS: CISATRACURIUM BESYLATE 100 MG in DEXTROSE 5%-WATER 240 ML IV PRN ×3 (10:13→21:20)
[2020-11-07] MEDS: POTASSIUM CHL 10 MEQ/WATER 50 ML IV PRN ×3 (10:13→13:43)
[2020-11-07] MEDS: MIDAZOLAM HCL 100 MG in DEXTROSE 5%-WATER 180 ML IV PRN ×2 (10:22→21:17)
[2020-11-07] MEDS: ACETAMINOPHEN 650 MG RECTAL SUPPOSITORY PR PRN (10:51)
[2020-11-07] MEDS: ACETAMINOPHEN 325 MG TABLET PO PRN (10:57)
[2020-11-07 11:42] LABS: GLUCOSE,POINT OF CARE 114 MG/DL (70-110)
[2020-11-07 12:00] VITALS: BP 142/91
[2020-11-07] MEDS ORDERED: POTASSIUM CHLORIDE 10% 40 MEQ/30 ML LIQUID UDCUP NG SCH (13:00)
[2020-11-07] MEDS ORDERED: SODIUM CHLORIDE 0.9% 250 ML IV ONE (14:37)
[2020-11-07 16:00] VITALS: BP 125/76
[2020-11-07] MEDS: DAPTOMYCIN 500 MG in SODIUM CHLORIDE 0.9% 50 ML IV SCH (17:15)
[2020-11-07] MEDS: CASPOFUNGIN ACETATE 50 MG in SODIUM CHLORIDE 0.9% 250 ML IV SCH (18:29)
[2020-11-07 19:20] LABS: GLUCOSE,POINT OF CARE 220 MG/DL (70-110)
[2020-11-07 20:00] VITALS: BP 108/75
[2020-11-07] MEDS: METOCLOPRAMIDE HCL 5 MG/ML 2 ML VIAL IVP SCH (20:20)
[2020-11-07 20:28] LABS: GLUCOSE,POINT OF CARE 206 MG/DL (70-110)
[2020-11-07 23:08] LABS: APPEARANCE,URINE CLOUDY (CLEAR); BILIRUBIN,URINE NEGATIVE (NEGATIVE); GLUCOSE, URINE (UA) >=1000 mg/dL (NEGATIVE); KETONES,URINE NEGATIVE (NEGATIVE); LEUKOCYTE ESTERASE ,URINE NEGATIVE (NEGATIVE); NITRATE,URINE NEGATIVE (NEGATIVE); OCCULT BLOOD,URINE NEGATIVE (NEGATIVE); PH,URINE 5.5 (5.0-8.0); PROTEIN,URINE POS 1+ (NEGATIVE); UROBILINOGEN,URINE 0.2 mg/dL (<=1.0)
[2020-11-07 23:25] LABS: BACTERIA,URINE Moderate /HPF (None Seen); RBC,URINE 0-2 /HPF (0-2); SQUAMOUS EPITHELIAL CELL,UR Rare /LPF (None Seen); URIC ACID CRYSTALS,URINE Rare /LPF (None Seen); WBC,URINE 0-2 /HPF (0-5)
[2020-11-07 23:40] LABS: GLUCOSE,POINT OF CARE 127 MG/DL (70-110)
[2020-11-08] VITALS: BP 110/79
[2020-11-08] MEDS: MEROPENEM 1 GM in SODIUM CHLORIDE 0.9% 100 ML IV SCH ×4 (00:10→23:37)
[2020-11-08] MEDS ORDERED: SODIUM CHLORIDE 0.9% 250 ML IV ONE (00:12)
[2020-11-08] MEDS: METOCLOPRAMIDE HCL 5 MG/ML 2 ML VIAL IVP SCH ×5 (00:15→23:40)
[2020-11-08] MEDS: INSULIN LISPRO 100 UNITS/ML SQ PRN ×4 (00:16→23:36)
[2020-11-08] MEDS: PROPOFOL 1000 MG/ISO-OSM 100 ML IV PRN ×5 (02:21→19:59)
[2020-11-08] MEDS: FENTANYL CITRATE IV PRN ×3 (02:54→19:33)
[2020-11-08] MEDS: WATER IV PRN ×3 (02:54→19:33)
[2020-11-08 04:00] VITALS: BP 102/72
[2020-11-08] MEDS: CISATRACURIUM BESYLATE 100 MG in DEXTROSE 5%-WATER 240 ML IV PRN ×4 (04:40→22:52)
[2020-11-08] MEDS: KETAMINE HCL 500 MG in DEXTROSE 5%-WATER 490 ML IV PRN (04:41)
[2020-11-08 05:25] LABS: GLUCOSE,POINT OF CARE 89 MG/DL (70-110)
[2020-11-08 06:48] LABS: ALANINE AMINOTRANSFERASE 66 U/L (12-78); ALBUMIN 2.3 g/dL (3.4-5.0); ALKALINE PHOSPHATASE 133 U/L (46-116); ANION GAP 2 mmol/L (8-16); ASPARTATE AMINOTRANSFERASE 52 U/L (15-37); BILIRUBIN,TOTAL 0.3 mg/dL (0.1-1.0); C-REACTIVE PROTEIN QUANT 8.59 mg/dL (0.00-0.30); CALCIUM, TOTAL 8.5 mg/dL (8.8-10.5); CARBON DIOXIDE 36 mmol/L (22-29); CHLORIDE 96 mmol/L (98-107); CREATININE 0.42 mg/dL (0.60-1.30); GLOMERULAR FILTR. RATE CALC > 60 mL/min (>60); GLUCOSE,RANDOM 87 mg/dL (70-110); POTASSIUM 5.3 mmol/L (3.5-5.1); SODIUM SERUM 134 mmol/L (136-145); UREA NITROGEN, BLOOD 18 mg/dL (7-18)
[2020-11-08 08:00] VITALS: BP 103/61
[2020-11-08] MEDS: LORazepam 2 MG/ML VIAL IVP PRN (08:09)
[2020-11-08] MEDS: DEXAMETHASONE SOD PHOS 4 MG/ML VIAL IVP SCH (08:55)
[2020-11-08] MEDS: PANTOPRAZOLE SODIUM 40 MG/VIAL IVP SCH ×2 (08:56→20:00)
[2020-11-08] MEDS: DOCUSATE SODIUM 100 MG/10 ML LIQUID UDCUP GT SCH ×2 (08:56→20:00)
[2020-11-08] MEDS: OxyCODONE HCL 5 MG IR TABLET NG SCH ×4 (08:56→20:01)
[2020-11-08] MEDS: ENOXAPARIN SODIUM 80 MG/0.8 ML PF SYRINGE SQ SCH ×2 (08:57→20:01)
[2020-11-08] MEDS: AMINO ACIDS/PROTEIN HYDROLYS 30 ML TUBE PO SCH ×3 (08:57→17:31)
[2020-11-08] MEDS: DIAZEPAM 5 MG TABLET NG SCH ×3 (08:59→20:01)
[2020-11-08] MEDS: INSULIN GLARGINE,HUM.REC.ANLOG 100 UNITS/ML SQ SCH ×2 (09:00→20:39)
[2020-11-08] MEDS ORDERED: SODIUM CHLORIDE 0.9% 1,000 ML IV ONE (10:00)
[2020-11-08 12:00] VITALS: BP 91/68
[2020-11-08] MEDS: MIDAZOLAM HCL 100 MG in DEXTROSE 5%-WATER 180 ML IV PRN (12:25)
[2020-11-08 12:46] LABS: ABG BASE EXCESS 9.8 mmol/L (-2.0-3.0); ABG HCO3 29.7 mmol/L (22.0-26.0); ABG METHEMOGLOBIN 0.3 % (0.0-1.5); ABG OXYGEN CONTENT 13.4 mL/dL (15.0-23.0); ABG OXYHEMOGLOBIN 81.1 % (94.0-100.0); ABG PCO2 133 mmHg (35-45); ABG PH 7.091 (7.35-7.450); ABG TOTAL HEMOGLOBIN 11.7 G/dL (12.0-18.0); PO2, ARTERIAL BG 54.6 mmHg (84.0-92.0); SOURCE, BLOOD GAS ARTERIAL; TEMPERATURE, FAHRENHEIT, BG 98.6 FAHREN (96.0-98.6)
[2020-11-08 12:47] LABS: O2 DEVICE,BLOOD GAS VENTILATOR (ROOM AIR); PEEP,BG 10 cm H2O; SITE, BLOOD GAS LFT RADIAL; VENT MODE, BG Press. Control Vent (ROOM AIR); VT, ABG 360 ml
[2020-11-08] MEDS ORDERED: ALBUMIN HUMAN 25%-25GM/100ML 100 ML IV ONE (15:00)
[2020-11-08] MEDS ORDERED: FUROSEMIDE 40 MG/4 ML VIAL IVP ONE (15:30)
[2020-11-08 16:00] VITALS: BP 89/53
[2020-11-08] MEDS: PHENYLEPHRINE 200 MG/D5%-WATER 250 ML IV PRN (16:07)
[2020-11-08 16:51] LABS: GLUCOSE,POINT OF CARE 166 MG/DL (70-110)
[2020-11-08] MEDS: DAPTOMYCIN 500 MG in SODIUM CHLORIDE 0.9% 50 ML IV SCH (17:31)
[2020-11-08 17:58] LABS: ANION GAP -1 mmol/L (8-16); CALCIUM, TOTAL 8.6 mg/dL (8.8-10.5); CARBON DIOXIDE 35 mmol/L (22-29); CHLORIDE 97 mmol/L (98-107); GLOMERULAR FILTR. RATE CALC > 60 mL/min (>60); GLUCOSE,RANDOM 262 mg/dL (70-110); SODIUM SERUM 131 mmol/L (136-145); UREA NITROGEN, BLOOD 28 mg/dL (7-18)
[2020-11-08 18:03] LABS: POTASSIUM 6.6 mmol/L (3.5-5.1)
[2020-11-08] MEDS ORDERED: DEXTROSE 50%-WATER 25 GM/50 ML SYRINGE IVP ONE (18:30)
[2020-11-08] MEDS ORDERED: CALCIUM GLUCONATE 100 MG/ML 10 ML IVP ONE (18:30)
[2020-11-08] MEDS ORDERED: SODIUM ZIRCONIUM CYCLOSILICATE 5 GM POWDER PACKET PO ONE (18:30)
[2020-11-08] MEDS ORDERED: INSULIN REGULAR, HUMAN 100 UNITS/ML IVP ONE (18:30)
[2020-11-08] MEDS ORDERED: SODIUM BICARBONATE [ADULT] 8.4% 50 MEQ/50 ML SYRINGE IVP ONE ×2 (18:30→18:35)
[2020-11-08 20:00] VITALS: BP 110/70
[2020-11-08] MEDS ORDERED: SODIUM BICARBONATE 150 MEQ in DEXTROSE 5%-WATER 1,000 ML IV SCH (22:45)
[2020-11-09] VITALS: BP 98/61
[2020-11-09] MEDS: PROPOFOL 1000 MG/ISO-OSM 100 ML IV PRN ×2 (01:14→08:16)
[2020-11-09 04:00] VITALS: BP 112/66
[2020-11-09] MEDS: FENTANYL CITRATE IV PRN ×2 (04:14→11:04)
[2020-11-09] MEDS: WATER IV PRN ×2 (04:14→11:04)
[2020-11-09] MEDS: CISATRACURIUM BESYLATE 100 MG in DEXTROSE 5%-WATER 240 ML IV PRN (04:47)
[2020-11-09] MEDS: METOCLOPRAMIDE HCL 5 MG/ML 2 ML VIAL IVP SCH ×2 (05:02→11:04)
[2020-11-09 05:11] LABS: GLUCOSE,POINT OF CARE 188 MG/DL (70-110)
[2020-11-09 05:11] LABS: GLUCOSE,POINT OF CARE 247 MG/DL (70-110)
[2020-11-09 05:11] LABS: GLUCOSE,POINT OF CARE 259 MG/DL (70-110)
[2020-11-09 05:48] LABS: GLUCOSE,POINT OF CARE 113 MG/DL (70-110)
[2020-11-09 05:51] LABS: CALCIUM, TOTAL 8.4 mg/dL (8.8-10.5); CREATININE 1.58 mg/dL (0.60-1.30)
[2020-11-09] MEDS: KETAMINE HCL 500 MG in DEXTROSE 5%-WATER 490 ML IV PRN (06:44)
[2020-11-09] MEDS: PHENYLEPHRINE 200 MG/D5%-WATER 250 ML IV PRN (06:45)
[2020-11-09 08:00] VITALS: BP 109/55
[2020-11-09] MEDS: DOCUSATE SODIUM 100 MG/10 ML LIQUID UDCUP GT SCH (08:14)
[2020-11-09] MEDS: DIAZEPAM 5 MG TABLET NG SCH (08:14)
[2020-11-09] MEDS: OxyCODONE HCL 5 MG IR TABLET NG SCH ×2 (08:14→12:55)
[2020-11-09] MEDS: DEXAMETHASONE SOD PHOS 4 MG/ML VIAL IVP SCH (08:14)
[2020-11-09] MEDS: ENOXAPARIN SODIUM 80 MG/0.8 ML PF SYRINGE SQ SCH (08:15)
[2020-11-09] MEDS: PANTOPRAZOLE SODIUM 40 MG/VIAL IVP SCH (08:15)
[2020-11-09] MEDS: MIDAZOLAM HCL 100 MG in DEXTROSE 5%-WATER 180 ML IV PRN (08:17)
[2020-11-09] MEDS: MEROPENEM 1 GM in SODIUM CHLORIDE 0.9% 100 ML IV SCH (08:57)
[2020-11-09] MEDS: INSULIN GLARGINE,HUM.REC.ANLOG 100 UNITS/ML SQ SCH (09:00)
[2020-11-09] MEDS: AMINO ACIDS/PROTEIN HYDROLYS 30 ML TUBE PO SCH ×2 (09:57→12:00)
[2020-11-09 10:46] LABS: BASOPHILS % (AUTO) 0.7 % (0.0-2.0); HEMATOCRIT 28.8 % (41-53); HEMOGLOBIN 9.1 g/dL (13.5-17.5); LYMPHOCYTES # (AUTO) 1.6 K/uL (1.0-4.8); LYMPHOCYTES % (AUTO) 10.9 % (22.0-44.0); MEAN CORPUSCULAR HEMOGLOBIN 29.4 pg (26.0-34.0); MEAN CORPUSCULAR HGB CONC 31.5 G/dL (31.0-37.0); MEAN CORPUSCULAR VOLUME 93 fL (80-100); MONOCYTES # (AUTO) 2.3 K/uL (0.1-1.0); MONOCYTES % (AUTO) 15.8 % (2.0-9.0); NEUTROPHILS # (AUTO) 10.5 K/uL (1.8-7.7); NEUTROPHILS % (AUTO) 71.6 % (40.0-70.0); PLATELET COUNT (AUTO) 355 K/uL (150-450); RED BLOOD CELL COUNT(AUTO) 3.09 MIL/uL (4.50-5.90); RED CELL DISTRIBUTION WIDTH 16.8 % (11.5-14.5)
[2020-11-09 11:58] LABS: ABG A-A DIFF O2 523.9 mmHg (10-20.0); ABG BASE EXCESS 5.2 mmol/L (-2.0-3.0); ABG CARBOXYHEMOGLOBIN 1.9 % (0.0-1.5); ABG HCO3 27.5 mmol/L (22.0-26.0); ABG METHEMOGLOBIN 0.3 % (0.0-1.5); ABG OXYGEN CONTENT 12.4 mL/dL (15.0-23.0); ABG OXYGEN SATURATION 90.5 % (95.0-98.0); ABG OXYHEMOGLOBIN 88.5 % (94.0-100.0); ABG PCO2 87 mmHg (35-45); ABG PH 7.199 (7.35-7.450); ABG TOTAL HEMOGLOBIN 9.9 G/dL (12.0-18.0); O2 DEVICE,BLOOD GAS VENTILATOR (ROOM AIR); PO2, ARTERIAL BG 64.7 mmHg (84.0-92.0); SITE, BLOOD GAS RT RADIAL; SOURCE, BLOOD GAS ARTERIAL; VENT MODE, BG Press. Control Vent (ROOM AIR)
[2020-11-09 11:59] LABS: INSPIRATORY TIME, BG 0.8 SEC; PEEP,BG 8 cm H2O; SPONTANEOUS VT, BG 562 ml
[2020-11-09 12:00] VITALS: BP 121/66
[2020-11-09] MEDS ORDERED: HEPARIN SODIUM,PORCINE 1,000 UNITS/ML VIAL IVP ONE ×2 (12:15)
[2020-11-09] MEDS ORDERED: SODIUM CHLORIDE 0.9% 2,000 ML ONE (12:37)
[2020-11-09] MEDS ORDERED: POTASSIUM CHLORIDE 15 MEQ in NXSTAGE RFP-402 K0/CA3 5,000 ML IRRIG PRN (13:15)
[2020-11-09] MEDS ORDERED: [UNRECOGNIZED DRUG - OTHER] IRRIG PRN (13:30)
[2020-11-09] MEDS ORDERED: POTASSIUM CHLORIDE IRRIG PRN (13:30)
[2020-11-09] MEDS ORDERED: SODIUM BICARBONATE IRRIG PRN (13:30)
[2020-11-09] MEDS ORDERED: SODIUM CHLORIDE 0.9% 100 ML ONE (13:38)
[2020-11-09] MEDS ORDERED: IOVERSOL 350 MG/ML 100 ML VIAL ONE (13:38)
[2020-11-09 15:12] LABS: OCCULT BLOOD,GASTRIC FLUID POSITIVE (NEGATIVE)
[2020-11-09] MEDS ORDERED: VASOPRESSIN 40 UNITS in DEXTROSE 5%-WATER 98 ML IV PRN (15:30)
[2020-11-09] MEDS ORDERED: EPINEPHrine 1:10,000 [1 MG/10 ML] SYRINGE ONE (15:30)
[2020-11-09] MEDS ORDERED: CALCIUM GLUCONATE 1,000 MG in DEXTROSE 5%-WATER 50 ML IV SCH (16:00)
[2020-11-09 17:14] LABS: GLUCOSE,POINT OF CARE 139 MG/DL (70-110)
[2020-11-09 17:14] LABS: GLUCOSE,POINT OF CARE 112 MG/DL (70-110)
[2020-11-09 17:14] LABS: GLUCOSE,POINT OF CARE 200 MG/DL (70-110)
== END 2020-11-09 18:07 | DRG 720 ==
LOC: EMS 14:37 → 5N 17:05 → AHU 10-05 14:00 → ICUN 10-19 11:49 → AHU 10-20 12:35 → ICUN 10-22 09:19 → ICU 11-04 01:00
PROVIDERS: ADMIT Hospitalist; ATTEND Hospitalist
PROC: XW033E5 Introduction of Remdesivir Anti-infective into Peripheral Vein, Percutaneous Approach, New Technology Group 5 (ICD-10-PCS; 2020-09-27)
PROC: XW13325 Transfusion of Convalescent Plasma (Nonautologous) into Peripheral Vein, Percutaneous Approach, New Technology Group 5 (ICD-10-PCS; 2020-09-29)
PROC: 5A09357 Assistance with Respiratory Ventilation, Less than 24 Consecutive Hours, Continuous Positive Airway Pressure (ICD-10-PCS; 2020-10-04)
PROC: 5A1955Z Respiratory Ventilation, Greater than 96 Consecutive Hours (ICD-10-PCS; principal; 2020-10-05)
PROC: 0BH17EZ Insertion of Endotracheal Airway into Trachea, Via Natural or Artificial Opening (ICD-10-PCS; 2020-10-05)
PROC: 02HV33Z Insertion of Infusion Device into Superior Vena Cava, Percutaneous Approach (ICD-10-PCS; 2020-10-05)
PROC: B5181ZA Fluoroscopy of Superior Vena Cava using Low Osmolar Contrast, Guidance (ICD-10-PCS; 2020-10-05)
PROC: 5A09357 Assistance with Respiratory Ventilation, Less than 24 Consecutive Hours, Continuous Positive Airway Pressure (ICD-10-PCS; 2020-10-05)
DX: A41.89 Other specified sepsis (principal); U07.1 COVID-19; J12.82 Pneumonia due to coronavirus disease 2019; J80 Acute respiratory distress syndrome; I10 Essential (primary) hypertension; E11.8 Type 2 diabetes mellitus with unspecified complications; B37.9 Candidiasis, unspecified; D68.59 Other primary thrombophilia; E66.9 Obesity, unspecified; E78.00 Pure hypercholesterolemia, unspecified; I25.10 Atherosclerotic heart disease of native coronary artery without angina pectoris; D72.810 Lymphocytopenia; D64.9 Anemia, unspecified; E87.1 Hypo-osmolality and hyponatremia; K92.2 Gastrointestinal hemorrhage, unspecified; K21.9 Gastro-esophageal reflux disease without esophagitis; E87.2 Acidosis; E87.5 Hyperkalemia; E87.6 Hypokalemia; E11.65 Type 2 diabetes mellitus with hyperglycemia; Z79.899 Other long term (current) drug therapy; Z79.82 Long term (current) use of aspirin; Z68.35 Body mass index [BMI] 35.0-35.9, adult; Z86.718 Personal history of other venous thrombosis and embolism; Z79.84 Long term (current) use of oral hypoglycemic drugs
CPT/HCPCS: 36245; 36569; 36600; 70450; 70491; 70498; 71100; 71260; 72125; 72193; 74160; 76937; 82271; 82533; 82728; 82805; 83605; 83615; 83735; 83935; 84075; 84100; 84132; 84145; 84300; 84443; 84550; 85379; 85384; 86140; 86308; 86900; 86901; 86927; 87040; 87070; 87081; 87086; 87205; 87426; 87430; 87449; 87804; 87899; 92950; 93005; 93041; 93306; 93308; 93970; 93971; 94003; 94640; 94660; 99291; A9575; C9113; G0238; G0378; G0480; J0171; J0295; J0456; J0610; J0637; J0692; J0696; J0878; J1100; J1450; J1644; J1650; J1815; J1940; J1956; J2060; J2185; J2250; J2270; J2370; J2405; J2543; J2704; J2765; J3010; J3480; J3490; J7030; J7050; J7060; P9046; 36415-L1; 36415-TC; 71045-TC; 80061-TC; J7613; U0003